=== PATIENT | female | born 1955 | race Caucasian/White ===

== ENCOUNTER → 2019-04-18 11:33 | Outpatient (CLI) | payer BC, SELFPAY ==
--- NOTE | 2019-04-18 | DI.MG.S_ITS ---
BILATERAL DIGITAL SCREENING MAMMOGRAM 3D/2D WITH CAD: 04/18/2019 CLINICAL: Routine screening. Comparison is made to exams dated: 02/20/2018 mammogram, 02/06/2017 mammogram, and 02/03/2016 mammogram - [facility]. There are scattered fibroglandular elements in both breasts. Current study was also evaluated with a Computer Aided Detection (CAD) system. There is possible architectural distortion in the right breast at 11 o'clock middle depth. No other significant masses, calcifications, or other findings are seen in either breast. IMPRESSION: INCOMPLETE: NEEDS ADDITIONAL IMAGING EVALUATION The possible architectural distortion in the right breast is indeterminate. Additional views with possible ultrasound are recommended. This exam was interpreted at Station ID: [id number]. NOTE: For mammograms, a report in lay terms will be sent to the patient. Approximately 15% of breast malignancies will not be visualized mammographically. In the management of a palpable breast mass, a negative mammogram must not discourage biopsy of a clinically suspicious lesion. Electronically Signed By: Mary bowser/jami:04/18/2019 15:14:06 letter sent: Additional Imaging Needed ACR BI-RADS Category 0: Incomplete 3340F
== END ==
PROVIDERS: PCP Internal Medicine; Visit Provider Internal Medicine
DX: Z12.31 Encounter for screening mammogram for malignant neoplasm of breast (principal)
CPT/HCPCS: 77063; 77067

== ENCOUNTER → 2019-05-05 08:57 | Outpatient (CLI) | payer BC, SELFPAY ==
--- NOTE | 2019-05-05 | DI.MG.S_ITS ---
UNILATERAL RIGHT DIGITAL DIAGNOSTIC MAMMOGRAM 3D/2D WITH ADDITIONAL VIEWS: 05/05/2019 CLINICAL: Additional evaluation requested from prior study. Comparison is made to exams dated: 04/18/2019 mammogram - [facility], 02/20/2018 mammogram, and 02/06/2017 mammogram - [facility]. There are scattered fibroglandular elements in right breast. Previously noted possible architectural distortion in the right breast at 11 o'clock middle depth on comparison screening mammogram resolves with additional views and likely represented superimposition of benign anatomic tissues. No significant masses, calcifications, or other findings are seen in the imaged areas of the right breast. IMPRESSION: INCOMPLETE: NEEDS ADDITIONAL IMAGING EVALUATION Previously noted possible architectural distortion in the right breast at 11 o'clock middle depth on comparison screening mammogram resolves with additional views and likely represented superimposition of benign anatomic tissues. A targeted ultrasound is recommended and will be performed immediately following this exam. This exam was interpreted at Station ID: [id number]. NOTE: For mammograms, a report in lay terms will be sent to the patient. Approximately 15% of breast malignancies will not be visualized mammographically. In the management of a palpable breast mass, a negative mammogram must not discourage biopsy of a clinically suspicious lesion. Electronically Signed By: Eliezer Butts M.D. ecl/:05/05/2019 10:47:13 ACR BI-RADS Category 0: Incomplete 3340F
--- NOTE | 2019-05-05 | DI.US.S_ITS ---
LIMITED ULTRASOUND OF RIGHT BREAST: 05/05/2019 CLINICAL: Patient returns today to evaluate possible architectural distortion in the right breast. Comparison is made to exams dated: 05/05/2019 mammogram, 04/18/2019 mammogram - [facility], 02/20/2018 mammogram, and 02/06/2017 mammogram - [facility]. Color flow and real-time ultrasound of the right breast 10-11 o'clock region were performed. Wing scale images of the real-time examination were reviewed. No underlying breast mass or abnormality is identified. There is no ultrasound correlate for the previously noted possible architectural distortion in the right breast at 11 o'clock middle depth seen on comparison screening mammograms, which also resolved on additional diagnostic mammogram views performed earlier today 05/05/19. IMPRESSION: NEGATIVE There is no sonographic evidence of malignancy in the imaged portions of the right breast. Return to annual screening mammography schedule is recommended. The patient is advised to monitor her breasts and to return sooner for re-evaluation should she feel anything grow or change. This exam was interpreted at Station ID: [id number]. Electronically Signed By: Eliezer Butts M.D. ecl/:05/05/2019 10:51:30 letter sent: Normal Exam Ultrasound BI-RADS: 1 Negative
== END ==
PROVIDERS: PCP Internal Medicine; Visit Provider Internal Medicine
DX: R92.8 Other abnormal and inconclusive findings on diagnostic imaging of breast (principal)
CPT/HCPCS: 76642; 77065; G0279

== ENCOUNTER → 2019-10-27 12:35 | Outpatient (CLI) | payer OTHER, SELFPAY ==
--- NOTE | 2019-10-27 | DI.RAD.S_ITS ---
PROCEDURE: XR CHEST 2V INDICATIONS: night sweats/right knee pain/right hip pain TECHNIQUE: 2 views of the chest were acquired. COMPARISON: None. FINDINGS: Surgical changes and devices: None. Lungs and pleura: Lungs are clear. No pleural effusions or pneumothorax. Mediastinum: Mediastinal contours are normal. Heart size is normal. Bones and chest wall: No suspicious bony abnormalities. Soft tissues appear unremarkable. IMPRESSION: Normal for age, source of current night sweats symptoms is not seen. Dictated by: Primitivo Toledo M.D. on 10/27/2019 at 13:33 Approved by: Primitivo Toledo M.D. on 10/27/2019 at 13:34
--- NOTE | 2019-10-27 | DI.RAD.S_ITS ---
PROCEDURE: XR KNEE RT 3V INDICATIONS: night sweats/right knee pain/right hip pain TECHNIQUE: 3 views of the knee were acquired. COMPARISON: None. FINDINGS: Bones: No fractures or dislocations. No suspicious bony lesions. There is severe lateral facet patellofemoral joint osteoarthritis with [id number] articulation. At the medial compartment of the right knee there is only a slight degree of joint space narrowing. Mild osteoarthritis is present at that site. Soft tissues: No joint effusion. No suspicious soft tissue calcifications. IMPRESSION: Asymmetric degenerative changes at the right knee, mild at the medial compartment and severe at the lateral facet of the patellofemoral joint. Dictated by: Primitivo Toledo M.D. on 10/27/2019 at 13:32 Approved by: Primitivo Toledo M.D. on 10/27/2019 at 13:33
--- NOTE | 2019-10-27 | DI.RAD.S_ITS ---
PROCEDURE: XR HIP W PEL IF DONE RT 2V INDICATIONS: night sweats/right knee pain/right hip pain TECHNIQUE: AP pelvis with lateral view(s) of the right hip. COMPARISON: None. FINDINGS: Bones: No fractures or dislocations. Pelvic ring appears intact. No suspicious bony lesions. Soft tissues: The visualized bowel gas pattern is normal. No suspicious soft tissue calcifications. IMPRESSION: There is hip joint space narrowing, mild to moderate bilaterally, with no trauma. Lower lumbosacral spine degenerative disc disease at L4-5 is moderately severe. Dictated by: Primitivo Toledo M.D. on 10/27/2019 at 13:31 Approved by: Primitivo Toledo M.D. on 10/27/2019 at 13:32
== END ==
PROVIDERS: PCP Internal Medicine; Visit Provider Internal Medicine
DX: M25.561 Pain in right knee (principal); M17.11 Unilateral primary osteoarthritis, right knee; M25.551 Pain in right hip; M51.36 Other intervertebral disc degeneration, lumbar region; R61 Generalized hyperhidrosis; G62.9 Polyneuropathy, unspecified
CPT/HCPCS: 71046; 73502; 73562

== ENCOUNTER 2019-12-17 10:15 | Outpatient (RCR) | payer OTHER, SELFPAY ==
--- NOTE | 2019-12-10 12:37 | PT.OPPOC ---
Physical, Occupational & Speech Therapy At [facility] Current Diagnoses Radiculopathy, lumbar region (12/10/19) Iliotibial band syndrome, right leg (12/10/19) Abnormal posture (12/10/19) Weakness (12/10/19) Visit Care Team Role Provider Type Dariela Peterson MD Attending Provider Non-Staff Primary Care Provider Referring Provider Specialty: Internal Medicine Address: [address] [place] [address], [id number] Email: [email or web address] Plan Of Care PT-OP-T Assessment and Plan Start: 12/09/19 10:26 Freq: Status: Active Protocol: Document 12/10/19 08:58 SAK (Rec: 12/11/19 12:06 [facility]A [id number]) Physical Therapy Assessment Rehab Potential Rehabilitation Potential Good Evaluation Complexity Number of Personal Factors/Comorbidities 1-2 Number of Body Systems Impaired 3 Clinical Presentation at Evaluation Evolving Impairments Impairments Activity Tolerance,Pain, Posture,Soft Tissue Mobility, Strength Other Concerns Barriers to Rehabilitation history of multiple musculoskeletal injuries, use of Statin medication Goals Five Impairment Lack of exercise consistency E Commerce Merchant Goal (LTG) Patient to be independent and compliant with HEP and aquatic exercise performance. LTG Duration 12 wks Four Impairment postural dysfunction and poor body mechanics Short Term Goal (STG) Patient to verbalize understanding of neutral postural alignment after instruction STG Duration 2 wks Snf Goal (LTG) Patient to demonstrate improvement in postural alignment during walking and functional daily tasks LTG Duration 12 wks Three Impairment Poor core stabilization and strength Short Term Goal (STG) Patient able to tolerate HEP for purposes of core strengthening and stabilization without an increase in pain STG Duration 6 wks E Commerce Merchant Goal (LTG) Patient to demonstrate good ability to activate TrA and multifidi for core stabilization with functional activities. Two Impairment Unable to go for walks or hikes without pain Short Term Goal (STG) Patient able to go for 20-30 min walk without an increase in pain STG Duration 6 wks Snf Goal (LTG) Patient able to go hiking with minimal to no increase in pain. LTG Duration 12 wks One Impairment Sleep interrupted by pain Snf Goal (LTG) Patient able to sleep without being limited by pain LTG Duration 12 wks Assessment Summary Assessment Patient presents to physical therapy with muscle imbalances throughout her core, pelvis, and LE's with history of multiple orthopedic injuries. Has a poor ability to activate her core stabilizing musculature. She has tightness bilaterally right greater than left LE, postural dysfunction, and is performing heavy physical activities without proper body mechanics or musculature support. Feel she would benefit from physical therapy to address these imbalances, and help her establish a consistent program of HEP and aquatic exercise for long-term fitness and pain management. Physical Therapy Plan Frequency and Duration Frequency of Treatment 2x/Week Duration of Treatment 12 wks Plan of Care Start Date 12/10/19 Plan of Care End Date 03/10/20 Therapeutic Interventions Therapeutic Interventions Aquatic Therapy,Home Exercise Program,Manual Therapy, Neuromuscular Re-education, Patient/Caregiver Education, Self-Care/Home Management,Soft Tissue Mobilization,Taping, Therapeutic Activities, Therapeutic Exercises Modalities Cold Pack/Ice Massage,Electric Stimulation,Traction- Mechanical,Ultrasound Next Visit Focus/Plan Next Note Type Treatment Note Next Visit Plan Warm-up and gait evaluation on treadmill, standing postural education at wall (postural isometrics), use of foam roll for flexibility and spinal realignment, problem-solve any difficulty with HEP, progress core stabilization ex quadriped, sidelying, supine. Trial kinesiotape for inhibition right ITband. Plan of Care Dates Plan of Care Start Date 12/10/19 Plan of Care End Date 03/10/20 Electronically Signed by: Franca Talamantes, PT 12/11/19 [id number] Please Sign and Return: I have reviewed this Plan of Care and certify that the skilled therapy services above are required to meet the patient?s needs. Physician Signature Date Printed Name and Credentials Clinical Instructor Signature Printed Name and Credentials
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
--- NOTE | 2019-12-29 08:05 | PT-OP ANOTE ---
Pt called on Sat cancelling her appt today secondary to having a cold, is aware of her next land appt 12/30.
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
== END 2020-10-01 14:15 ==
LOC: PHYS 10:15
PROVIDERS: PCP Internal Medicine; Referring Provider Internal Medicine; Visit Provider Internal Medicine
DX: M54.16 Radiculopathy, lumbar region (principal); M76.31 Iliotibial band syndrome, right leg; R53.1 Weakness; R29.3 Abnormal posture
CPT/HCPCS: 97110; 97113; 97162; 97535

== ENCOUNTER → 2020-04-21 10:23 | Outpatient (CLI) | payer OTHER, SELFPAY ==
--- NOTE | 2020-04-21 | DI.RAD.S_ITS ---
PROCEDURE: XR KNEE LT 1TO2V INDICATIONS: BILATERAL KNEE PAIN TECHNIQUE: 2 views of the knee were acquired. COMPARISON: [facility], CR, XR KNEE RT 3V, 10/27/2019, 12:45. FINDINGS: Bones: No fractures or dislocations but there is a moderate degree of lateral facet patellofemoral joint degenerative joint space narrowing, and on the lateral view there is a small suprapatellar joint effusion slightly greater than that seen at the right knee same day.. No suspicious bony lesions. Soft tissues: No joint effusion. No suspicious soft tissue calcifications. IMPRESSION: Moderate patellofemoral joint osteoarthritis at the lateral facet, small joint effusion seen on the lateral view without loose body. Dictated by: Primitivo Toledo M.D. on 04/21/2020 at 12:15 Approved by: Primitivo Toledo M.D. on 04/21/2020 at 12:16
--- NOTE | 2020-04-21 | DI.RAD.S_ITS ---
PROCEDURE: XR KNEE STANDING BI INDICATIONS: BILATERAL KNEE PAIN TECHNIQUE: Frontal view of the right knee, and frontal view of the left knee. COMPARISON: [facility], CR, XR KNEE RT 3V, 10/27/2019, 12:45. FINDINGS: Bones: No acute fractures or dislocations. Patellar alignment is normal on the sunrise view. No suspicious bony lesions. Joint spaces appear mildly reduced with weightbearing. Soft tissues: No knee joint effusions. No suspicious soft tissue calcification. IMPRESSION: Mild reduction of the medial compartment joint interspace on frontal view weight bearing imaging. Dictated by: Primitivo Toledo M.D. on 04/21/2020 at 11:59 Approved by: Primitivo Toledo M.D. on 04/21/2020 at 12:12
--- NOTE | 2020-04-21 | DI.RAD.S_ITS ---
PROCEDURE: XR KNEE RT 1TO2V INDICATIONS: BILATERAL KNEE PAIN TECHNIQUE: 2 views of the right were acquired during weight bearing, patellar sunrise view and lateral view. COMPARISON: [facility], , XR KNEE RT 3V, 10/27/2019, 12:45. FINDINGS: Bones: No fractures or dislocations but there is severe degenerative osteoarthritis at the lateral facet of the patellofemoral joint on the patellar imaging, and on the lateral view there appears to be a small joint effusion in the suprapatellar bursal space. No suspicious bony lesions. Soft tissues: No joint effusion. No suspicious soft tissue calcifications. IMPRESSION: Near severe degenerative osteoarthritis at the lateral facet of the patellofemoral joint. Small joint effusion incidentally noted in the suprapatellar bursal space but no intra-articular loose body is found. Dictated by: Primitivo Toledo M.D. on 04/21/2020 at 12:13 Approved by: Primitivo Toledo M.D. on 04/21/2020 at 12:15
== END ==
PROVIDERS: PCP Internal Medicine; Referring Provider Internal Medicine; Visit Provider Internal Medicine
DX: M25.561 Pain in right knee (principal); M25.562 Pain in left knee; M17.0 Bilateral primary osteoarthritis of knee; M25.462 Effusion, left knee; M25.461 Effusion, right knee
CPT/HCPCS: 73560; 73565

== ENCOUNTER → 2020-07-17 09:02 | Outpatient (CLI) | payer OTHER, SELFPAY ==
--- NOTE | 2020-07-17 | DI.MG.S_ITS ---
BILATERAL DIGITAL SCREENING MAMMOGRAM 3D/2D WITH CAD: 07/17/2020 CLINICAL: Routine screening. Comparison is made to exams dated: 04/18/2019 mammogram - , 02/20/2018 mammogram, and 02/06/2017 mammogram - [facility]. There are scattered fibroglandular elements in both breasts. Current study was also evaluated with a Computer Aided Detection (CAD) system. No significant masses, calcifications, or other findings are seen in either breast. There has been no significant interval change. IMPRESSION: NEGATIVE There is no mammographic evidence of malignancy. A 1 year screening mammogram is recommended. This exam was interpreted at Station ID: [id number]. NOTE: For mammograms, a report in lay terms will be sent to the patient. Approximately 15% of breast malignancies will not be visualized mammographically. In the management of a palpable breast mass, a negative mammogram must not discourage biopsy of a clinically suspicious lesion. Electronically Signed By: Kali narayan/jami:07/19/2020 08:03:19 letter sent: Normal Exam ACR BI-RADS Category 1: Negative [id number]
== END ==
PROVIDERS: PCP Internal Medicine; Referring Provider Internal Medicine; Visit Provider Internal Medicine
DX: Z12.31 Encounter for screening mammogram for malignant neoplasm of breast (principal)
CPT/HCPCS: 77063; 77067

== ENCOUNTER → 2020-09-30 14:56 | Outpatient (CLI) | payer MEDICARE, OTHER, SELFPAY ==
[2020-09-30 15:49] LABS: Add Manual Diff / Slide Review NO; Basophils Absolute Auto 100 /uL (0-100); Basophils Percent Auto 0.8 % (0-2); Eosinophils Absolute Auto 200 /uL (0-450); Eosinophils Percent Auto 2.7 % (2-4); Hematocrit 40.4 % (36-46); Hemoglobin 13.5 g/dL (12.0-16.0); Lymphocytes Absolute Auto 1800 /uL (1100-4500); Lymphocytes Percent Auto 25.9 % (25-40); Mean Corpuscular HGB Conc 33.4 % (30-36); Mean Corpuscular Hemoglobin 31.2 PG (26-34); Mean Corpuscular Volume 93.5 fL (80-100); Monocytes Absolute Auto 600 /uL (0-900); Monocytes Percent Auto 8.6 % (3-14); Neutrophils Absolute Auto 4200 /uL (1500-7000); Platelet Count 222 X10^3/uL (150-400); Red Blood Cell Count 4.32 X10^6/uL (4.0-5.2); Red Cell Distribution Width 12.6 % (11.6-14.8); White Blood Cell Count 6.8 X10^3/uL (4.5-11.0)
[2020-09-30 16:18] LABS: Carbon Dioxide 28 mmol/L (22-32); Chloride 102 mmol/L (98-107); HEMOLYSIS < 15 (0-50); Sodium 136 mmol/L (137-145)
== END ==
PROVIDERS: PCP Internal Medicine; Referring Provider Orthopaedic Surgery; Visit Provider Orthopaedic Surgery
DX: Z01.818 Encounter for other preprocedural examination (principal); Z01.812 Encounter for preprocedural laboratory examination
CPT/HCPCS: 36415; 80051; 85025; 93005; 93010

== ENCOUNTER → 2020-10-04 09:15 | Outpatient (CLI) | payer MEDICARE, OTHER, SELFPAY ==
[2020-10-04 10:52] LABS: COVID19 -Nasal RAPID Negative (Negative)
== END ==
PROVIDERS: PCP Internal Medicine; Visit Provider Nurse Practitioner
DX: Z20.828 Contact with and (suspected) exposure to other viral communicable diseases (principal)
CPT/HCPCS: 87635; C9803

== ENCOUNTER 2020-10-06 08:27 | Day surgery (SDC) | payer MEDICARE, OTHER, SELFPAY ==
[2020-10-04 09:35] VITALS: BMI 26.6
[2020-10-06] VITALS (17 sets, daily range): BP systolic 106–152; BP diastolic 59–86; PULSE 73–91; RESP 10–22; TEMP 36.2–36.9; O2SAT 93–100; BMI 27.0
--- NOTE | 2020-10-06 08:12 | DI.RAD.S_ITS ---
PROCEDURE: XR KNEE RT 1TO2V INDICATIONS: post operative right knee TECHNIQUE: 2 view(s) of the knee acquired. COMPARISON: [facility], CR, XR KNEE LT 1TO2V, 04/21/2020, 10:20. FINDINGS: Bones: Patient is status post knee joint arthroplasty. Hardware components are in expected positions. Visualized bony structures are intact. Soft tissues: Overlying postoperative changes are noted. IMPRESSION: Expected postoperative appearance Dictated by: Jose Whittington M.D. on 10/06/2020 at 13:19 Approved by: Jose Whittington M.D. on 10/06/2020 at 13:21
[2020-10-06] MEDS: LACTATED RINGERS 1,000 ML 42 ML IV ×2 (09:17→11:52)
[2020-10-06] MEDS: PREGABALIN 75 MG CAPSULE PO (09:20)
[2020-10-06] MEDS: CELECOXIB 200 MG CAPSULE PO (09:20)
--- NOTE | 2020-10-06 09:48 | P.OP_ITS ---
Operative Date/Time/Diagnoses Date of procedure: 10/06/20 Time of procedure: 12:09 Pre-op diagnosis: Right knee osteoarthritis Post-op diagnosis: same Procedure & Clinicians Procedure: Right total knee arthroplasty Same procedure as scheduled: Yes Indications: The patient presents today for total knee arthroplasty after failure of conservative treatment. The nature of the procedure including the risks and benefits, alternatives, postoperative course and expected outcome were discussed and all questions answered. Consent was obtained. Operative site confirmed and marked. Surgeon: Aftab Reed Privacy Officer: Luke Harrison Anesthesia Type: General, Spinal and Local Operative Notes Closure Type: primary Specimen(s): none sent Prosthetic devices, grafts, tissues, transplants, or devices: [facility] BCS: 6 femoral component, 4 tibial component, 10 mm BCS polyethylene tray and 32 x 7.5 mm round patella Applied: implant(s) Estimated Blood Loss (mL): 10 Blood products transfused: none Tourniquet time (min): 54 Procedure in detail: The patient was taken to the operative suite and placed under anesthesia. The patient was given prophylactic antibiotics prior to surgery. The patient was also given tranexamic acid, 1 g, just prior to surgery for postoperative hemostasis. The lateral knee was prepped and the joint injected with 20 mL of 1% Lidocaine with epinephrine. The knee was then prepped and draped in usual sterile fashion. The leg was exsanguinated with an Esmarch dressing and the tourniquet raised to 250 torr. A 15 cm anterior incision was made. Next a medial trivector arthrotomy was made. The extensor mechanism was marked to ensure accurate repair. Initial exposing dissection was carried out medially and laterally. The knee was then flexed and the intramedullary femoral guide faina placed. The distal femoral cut was made in 6? of valgus at the +1 position. The femoral size was measured and the appropriate cutting block was then placed and the anterior, posterior and chamfer cuts made. The intramedullary tibial alignment faina was then placed. The guide was set to remove approximately 10 mm from the less affected lateral side. The proximal tibial cut was then made with an oscillating saw. All meniscus and bony debris was then removed. Posterior femoral osteophytes removed with a curved osteotome. Flexion extension gaps were checked. No spec ific balancing was required other than routine exposure and removal of osteophytes. The soft tissues were then injected with a combination of 20 mL of half percent Marcaine with epinephrine and 20 mL of Exparel. The trial components were then placed. The knee was then extended and the patellar thickness was measured and a cut made removing approximately 7-8 mm of bone. The patella was then sized and drilled. Some excess lateral bone was excised and the patellofemoral ligament released. The knee went into full extension and flexion beyond 130?. There was excellent medial-lateral balance throughout motion. Patellar tracking was excellent. The trial components were removed and the knee was cleansed with Pulsavac irrigation and dried. The final components were cemented with high viscosity vacuum mixed bone cement with antibiotics. The joint was filled with a dilute Betadine solution. The knee was held in extension and the patellar clamped until the cement was adequately cured. The knee was then irrigated. The extensor mechanism was closed with 5 interrupted #1 Vicryl sutures and a running Quill suture at approximately 90 degrees of flexion. The joint was then injected with a combination of 1 g of tranexamic acid and 20 mL of quarter percent Marcaine with epinephrine. The subcutaneous tissue was closed with 2 0 Vicryl. The skin was closed with absorbable subcuticular sutures and surgical adhesive. An Aquacel dressing and José Miguel wrap were then applied. The patient tolerated the procedure well and was returned to recovery room in good condition. Complications: none Post-operative Condition: stable Disposition: PACU Plan for aftercare: [facility] Protocol.
--- NOTE | 2020-10-06 09:48 | PM.PREOP ---
Pre-operative Note COVID-19 COVID-19 status: Negative Result date/Date tested (Pos, Neg/Pending): 10/04/20 Interval Note History & Physical reviewed/Exam performed by Physician: Yes Changes to H&P: No
[2020-10-06] MEDS: ACETAMINOPHEN 325 MG TABLET 975 MG PO (10:08)
[2020-10-06] MEDS: CLINDAMYCIN 900 MG/50 ML PIGGYBACK 50 MG IV ×2 (10:42→19:17)
[2020-10-06] MEDS: TRANEXAMIC ACID 1,000 MG VIAL 1000 MG IV (10:49)
--- NOTE | 2020-10-06 11:06 | SUR.OPER ---
Supine on padded OR bed. Pillow under head, arms secured on padded armboards <90 degree abduction. Safety belt across torso. Non-operative leg secured with tape over blanket over lower leg. Operative leg secured in DeMayo/Otf positioner. Foam padded brace at thigh of operative leg.
[2020-10-06] MEDS: BUPIVACAINE 0.25% W/ EPI (PF) 20 ML, TRANEXAMIC ACID 1,000 MG, SODIUM CHLORIDE 0.9% 10 ML INJ (11:11)
[2020-10-06] MEDS: LIDOCAINE 1% W/EPI 20 ML INJ (11:12)
[2020-10-06] MEDS: BUPIVACAINE 0.25% W/ EPI (PF) 40 ML, BUPIVACAINE LIPOSOME 266 MG, SODIUM CHLORIDE 0.9% ... INJ (11:12)
[2020-10-06] MEDS: OXYCODONE IR 5 MG TABLET PO (12:53)
--- NOTE | 2020-10-06 14:22 | PC.NURSE ---
Assess- Patient is A&Ox3 and denies pain. Her r.knee has an aquacel with bib wrap intact, she has feeling to lower thigh, and feels some pressure upon her feet when feeling for pulses, which are wnl. She was medicated with oxycodone before she came up to the floor and denies discomfort. Tolerating ice water and denies nausea at this time. Resting in bed with IVF infusing at 100cc/hr.
[2020-10-06] MEDS: IBUPROFEN 400 MG TABLET PO ×3 (14:49→20:41)
[2020-10-06] MEDS: LACTATED RINGERS 1,000 ML 100 ML IV (14:50)
[2020-10-06] MEDS: ACETAMINOPHEN 325 MG TABLET 650 MG PO ×2 (15:28→20:39)
--- NOTE | 2020-10-06 16:17 | PT.IIE ---
Current Diagnoses Unilateral primary osteoarthritis, right knee (10/06/20) Other bursitis of knee, right knee (10/06/20) Surgery Performed Operation Date: 10/06/20 10:15 Actual Procedures p Total Knee Arthroplasty(Right) - Aftab Reed MD Surgical History (Last Updated 10/04/20 @ 10:19 by Megan Gutierrez, RN) History of esophagogastroduodenoscopy (EGD) History of hysterectomy Hx of knee surgery (~1984) Hx of LASIK Hx of varicose vein stripping Medical History (Last Updated 10/04/20 @ 10:19 by Megan Gutierrez, RN) Cholelithiasis Diverticulosis Fatty liver GERD (gastroesophageal reflux disease) HLD (hyperlipidemia) Hypothyroid Numbness Pre-diabetes PVCs (premature ventricular contractions) Sinus bradycardia Statin-induced myositis Physical Therapy Inpatient Evaluation/Re-Eval M1 PT/OT-IP Prior Functional Status Start: 10/06/20 15:01 Freq: NEEDED Status: Active Protocol: Document 10/06/20 15:59 (Rec: 10/06/20 16:17 [id number]) Medical Review Prior Functional Status Medical History Reviewed Yes Diet/Fluid Consistency Regular Communication no deficits noted. Mobility and Gait pt was able to walk 2 miles with hiking sticks per day but only on flat surface. Pain increase with mobility, especially going downhill. Activities of Daily Living and IADL's IND for all ADLs and IADLs. Social History Household Members spouse Living Arrangements House Number of Floors (Floors) Two Floors Number of Stairs To Enter/Railing? 1 CIERA (4) without railing ramp entrance from garage Home Environment High Toilet,Tub/Shower Home Equipment Front Wheel Walker,Straight Cane,Shower Seat without Backrest,Hand Held Shower,Grab Bars In Shower Employment Status Retired Additional Social History Comment Pt lives with his in [place] who will be able to assist as needed. Their son is staying over until oct as well. Pt will participate outpatient PT in and [place] M2 PT-IP Current Condition Start: 10/06/20 15:01 Freq: NEEDED Status: Active Protocol: Document 10/06/20 15:59 (Rec: 10/06/20 16:17 [id number]) Physical Therapy Current Condition Current Condition Evaluation Date 10/06/20 Treatment Diagnosis R TKA, difficulty in walking Onset Date 10/06/20 Weight Bearing Status Weight Bearing Status Weight Bear as Tolerated M3 PT-IP Subjective Start: 10/06/20 15:01 Freq: NEEDED Status: Active Protocol: Document 10/06/20 15:59 (Rec: 10/06/20 16:17 [id number]) Subjective Physical Therapy Visit Type Type Initial Evaluation Visit Start Time 15:28 Visit Stop Time 15:58 Total Visit Minutes 30 Notes attended session Number of PERL SOFTWARE ENGINEER Visits 0 Physical Therapy Visit Comments Patient Comments I think i can walk a little bit Patient Goals To return home with Therapy Pain Assessment Pain When Pain Assessed During Mobility Pain Present Pain Present Pain Reported Location Right knee Intensity 3 Scale Used Numeric (0 - 10) Description Aching,With Movement Pain Management Techniques Apply Cold,Timing of Activity with Medications M4 PT-IP Mobility and Gait Start: 10/06/20 15:01 Freq: NEEDED Status: Active Protocol: Document 10/06/20 15:59 (Rec: 10/06/20 16:17 [id number]) PT-Bed Mobility Assessment Supine to Sit Supine to Sit Standby Assistance Scooting Scooting to Edge of Bed Standby Assistance PT-Transfer Assessment Sit to and From Stand Sit to and from Stand Contact Guard Assistance,1 Person Assistance,Use of Upper Extremities Equipment Transfer Assistive Device Gait Belt,Front Wheeled Walker Orthotic/Prosthetic Devices or Brace: No Transfers Transfer Destination Bed,Chair Transfer Technique Stand Step Pivot Transfer Ability Level of Assist Contact Guard Assistance,1 Person Assistance,Use of Upper Extremities Comments Mobility Comments Pt was in bed upon PT arrival. at bedside. She is Ax O x 4 but stated she was somewhat drowsy. pain at 3/10 with pedal pulse, slight weakness at RLE. BP in supine = 139/84. Pt completed supine to sit with SBA, followed by sit to stand with CGA by pushing off from bed. Pt practiced lateral weight shift in standing with FWW. She then progressed to walking from L side EOB to Chair on R side. She presented a step to gait pattern with slight IR RLE. She overall was stable but slow. Did not report of increase pain and she transferred to chair with CGA. She does c/o slight lightheadiness but BP at 118/ 75. She rested in chair comfortably and call light placed within reach. Reviewed ROM ex with her. Gait Assessment Gait Gait Assistance Required: Contact Guard Assist Distance (Feet) 10 Able to Maintain Weight Bearing Status Yes During Gait Assistive Devices Assistive Device Gait Belt,Front Wheeled Walker Orthotic/Prosthetic Devices or Brace: No Gait Deviations General Gait Pattern Antalgic,Decreased Stride Length,Decreased Feet Clearance,Step-to Gait Factors Limiting Gait Function Factors Limiting Gait Function Decreased Activity Tolerance, Decreased Strength,Limited Range of Motion,Pain,Poor Balance,Poor Safety Awareness Comments Gait Comments see mobility comments. Stair Climbing Assessment Comments Stair Climbing Comments did not assess PT-Balance Assessment Sitting Balance and Reactions Static Sitting Balance Ability Normal Dynamic Sitting Balance Ability Normal Standing Balance and Reactions Static Standing Balance Ability Good Dynamic Standing Balance Ability Good Device Used FWW M5 PT-IP Objective Assessments Start: 10/06/20 15:01 Freq: NEEDED Status: Active Protocol: Document 10/06/20 15:59 (Rec: 10/06/20 16:17 [id number]) Orientation Orientation/Cognition Level of Alertness Alert Orientation Name,Age,Birthday,Month,Date, Year,Day of Week,Place, Situation Language Function Ability No Deficits Noted Safety Awareness Understands Safety Issues Memory Description No Deficits Noted Gross Range of Motion Upper Extremity ROM Assessment Within Functional Limits Lower Extremity ROM Assessment Right Impaired Impairments knee AROM ~5-110. Strength Upper Extremity Strength Assessment Within Functional Limits Lower Extremity Strength Assessment Right Impaired Comments Strength Comments did not assess strength on RLE Coordination Assessment Gross Coordination Gross Coordination WNL Sensation Assessment Sensation Gross Sensation Right LE Impaired Muscle Tone Muscle Tone WNL Yes M6 PT-IP Treatment Start: 10/06/20 15:01 Freq: NEEDED Status: Active Protocol: Document 10/06/20 15:59 (Rec: 10/06/20 16:17 [id number]) Physical Therapy Treatment Exercises Exercises Ankle Pumps,Gluteal Sets,Quad Sets,Heel Slides Education Education Provided Precautions,Weight Bearing Status,Post-Op Packet,Safety M7 PT-IP Assessment and Plan Start: 10/06/20 15:01 Freq: NEEDED Status: Active Protocol: Document 10/06/20 15:59 (Rec: 10/06/20 16:17 [id number]) PT Summary Assessment and Plan Potential Rehabilitation Potential Excellent Status of Condition at Evaluation Stable Summary Impairments Pain,ROM,Strength,Balance,Bed Mobility,Transfers,Gait, Activity Tolerance Assessment Summary Pt is a 65 yo female s/p POD0 RTKA. PLOF= IND for all mobility without AD. Able to walk 2miles /day with hiking sticks but difficulty for downhill walk/ uneven surface. CLOF= pt has minimal pain and able to complete bed mobility SBA, and walked around the room with CGA step to pattern and FWW. Expect pt to be d/c home tomorrow with and son assistance, along with outpt PT Goals Bed Mobility Goal Independent Transfer Goal Independent,Standby Assistance ,Front Wheeled Walker Gait Goal Independent,Standby Assistance ,Front Wheel Walker Gait Distance 200 Other Goals 1 CIERA with FWW Days to Meet Goals 3 Frequency of Treatment Frequency Of Treatment Twice a Day Treatment Plan Physical Therapy Treatment Plan Bed Mobility Training,Transfer Training,Gait Training, Therapeutic Exercise,Balance Retraining,Post Op Education, Discharge Planning,Hot or Cold Pack Other Recommendations and Next Treatment mobility as won Focus 1STE with FWW Recommendations To Nursing Amount of Assist Needed 1 Person Assist Discharge Recommendations PT Discharge Recommendations Home with Assistance, Outpatient PT Transportation Needs at Discharge Private Vehicle
[2020-10-06] MEDS: ASPIRIN EC 81 MG TABLET PO (20:40)
[2020-10-06] MEDS: ROSUVASTATIN 10 MG TABLET 40 MG PO (20:41)
[2020-10-06] MEDS: FAMOTIDINE 20 MG TABLET PO (20:41)
[2020-10-06] MEDS: DOCUSATE 100 MG CAPSULE PO (20:41)
[2020-10-06] MEDS: hydrOXYzine pamoate 25 MG CAPSULE PO (20:41)
[2020-10-06] MEDS: estradioL 1 MG TABLET PO (21:10)
[2020-10-06] MEDS: AMITRIPTYLINE 10 MG TABLET 30 MG PO (21:10)
--- NOTE | 2020-10-06 22:00 | PC.NURSE ---
Pt is post-op R TKA. Pt reports pain at 2/10. Circulation and Movement intact, mild weakness in RLE. Pt reports slight numbness in RLE. José Miguel wrap in place in RLE. No drainage noted. RA, lungs CTA. SpO2 96%. Denies SOB. Pt with VSS. HRR. Denies CP or pressure. Pt reports mild nausea sometimes associated with standing, sometimes associated with medication administration. Pt thinks it might be ibuprofen causing nausea. Given crackers for nausea. Instructed to call if nausea continues. Pt voiding adequate volume of dark yellow urine in toilet. Pt is drinking water and continues on IVF. Pt is stand-by assist with FWW. Pt is doing well following TKA precautions for mobility. Will continue to monitor, notify MD with changes.
[2020-10-07] MEDS: IBUPROFEN 400 MG TABLET PO ×2 (00:56→06:50)
[2020-10-07] MEDS: LACTATED RINGERS 1,000 ML 100 ML IV (00:57)
[2020-10-07] MEDS: hydrOXYzine pamoate 25 MG CAPSULE PO ×2 (03:09→08:47)
[2020-10-07] MEDS: CLINDAMYCIN 900 MG/50 ML PIGGYBACK 50 MG IV (03:10)
[2020-10-07 05:00] VITALS: BP 118/67; PULSE 72; RESP 18; TEMP 36.1; O2SAT 95
[2020-10-07 05:02] LABS: Hematocrit 29.5 % (36-46); Hemoglobin 10.1 g/dL (12.0-16.0)
[2020-10-07] MEDS: ACETAMINOPHEN 325 MG TABLET 650 MG PO (06:49)
[2020-10-07] MEDS: LEVOTHYROXINE 88 MCG TABLET PO (06:50)
[2020-10-07 08:33] VITALS: BP 109/62; PULSE 72; RESP 16; TEMP 36.7; O2SAT 95
[2020-10-07] MEDS: ASPIRIN EC 81 MG TABLET PO (08:47)
[2020-10-07] MEDS: DULOXETINE 20 MG CAPSULE PO (08:47)
[2020-10-07] MEDS: DOCUSATE 100 MG CAPSULE PO (08:47)
[2020-10-07] MEDS: FAMOTIDINE 20 MG TABLET PO (08:47)
--- NOTE | 2020-10-07 09:08 | PM.PNPO.1 ---
Subjective Subjective Date Patient Seen: 10/07/20 Time Patient Seen: 09:08 Interval history: POD #1 s/p right TKA with Dr. Reed. Patient mobilized with physical therapy yesterday. She has no complaints of pain today. She is doing very well. Exam Vital Signs (past 8 hours): - 10/07/20 05:00 10/07/20 08:33 Temperature 96.9 F L 98.0 F Pulse Rate 72 72 Respiratory Rate 18 16 Blood Pressure 118/67 109/62 Pulse Oximetry 95 95 Oxygen Delivery Method Room Air Oxygen Flow Rate 0 Narrative Exam Narrative: Patient lying in bed in no acute distress. She is alert orient x3. Calves are soft, compressible, nontender bilaterally. She is able to actively dorsiflex and plantar flex. Dorsalis pedis pulses 2+. Dressing on the right knee is CDI. Objective Labs Result Diagrams: 10/07/20 04:35 Labs: Laboratory Results - last 24 hr 10/07/20 04:35 Hgb 10.1 L Hct 29.5 L PFSH Medical History Cholelithiasis Diverticulosis Fatty liver GERD (gastroesophageal reflux disease) HLD (hyperlipidemia) Hypothyroid Numbness Pre-diabetes PVCs (premature ventricular contractions) Sinus bradycardia Statin-induced myositis Surgical History History of esophagogastroduodenoscopy (EGD) History of hysterectomy Hx of knee surgery (~1984) Hx of LASIK Hx of varicose vein stripping Social History household members: spouse Smoking Status: Never smoker alcohol intake: current Assessment & Plan Post-op Postoperative Procedures: Procedures Operation Date: 10/06/20 10:15 Actual Procedures Side Surgeon p Total Knee Arthroplasty Right Aftab Reed MD Patient will mobilize with physical therapy today. Continue ASA b.i.d. for VTE prophylaxis. Anticipate discharge home today. Quality VTE Deep Vein Thrombosis/Pulmonary Embolism Present on Admission: No
--- NOTE | 2020-10-07 09:57 | CM.DANOTE ---
DCP: Case received, EMR reviewed and met with patient. Introduced self and role. Was able to obtain information from patient regarding her baseline activity level prior to her having surgery. DCP assessment completed with information currently available. Patient is a 65 year old female who admitted yesterday morning to the care of the orthopedic team. PCP: Dariela JENSEN at [facility]. Payer: confirmed: Medicare/[employer] [place] [employer]. Patient came to the hospital via private vehicle for a surgical procedure. She had right total knee arthroplasty. Patient has had history of right knee arthritis, as well as pain walking down hills. Met with patient in her room. She is alert and oriented, pleasant. She was sitting up in her bed. Confirmed with her that she is independent at her baseline, and resides here in [place] with her spouse, Timoteo. She uses a hiking stick for when she goes out and walks her dog. She also indicated that she has outpatient P.T. set up. Confirmed that she resides here in [place], and her spouse, Timoteo, will be assisting her at home, as well as her son. P: Patient is to be discharging home today after she works with P.T. Lucia Ta RN/Pattern Perforating Machine Operator
--- NOTE | 2020-10-07 10:27 | PT.IPTN ---
Current Diagnoses Unilateral primary osteoarthritis, right knee (10/06/20) Other bursitis of knee, right knee (10/06/20) Surgery Performed Operation Date: 10/06/20 10:15 Actual Procedures p Total Knee Arthroplasty(Right) - Aftab Reed MD Physical Therapy Treatment Note M2 PT-IP Current Condition Start: 10/06/20 15:01 Freq: NEEDED Status: Discharge Protocol: Document 10/06/20 15:59 HH (Rec: 10/06/20 16:17 [id number]) Physical Therapy Current Condition Current Condition Evaluation Date 10/06/20 Treatment Diagnosis R TKA, difficulty in walking Onset Date 10/06/20 Weight Bearing Status Weight Bearing Status Weight Bear as Tolerated M3 PT-IP Subjective Start: 10/06/20 15:01 Freq: NEEDED Status: Discharge Protocol: Document 10/07/20 10:21 HH (Rec: 10/07/20 10:27 [id number]) Subjective Physical Therapy Visit Type Type Treatment Note Visit Start Time 09:03 Visit Stop Time 09:25 Total Visit Minutes 17 Number of CMM PROGRAMMER Visits 0 Physical Therapy Visit Comments Patient Comments Im ready to go home Therapy Pain Assessment Pain When Pain Assessed During Mobility Pain Present Pain Present Pain Reported Location Right knee Intensity 4 Scale Used Numeric (0 - 10) Description Aching,With Movement Pain Management Techniques Apply Cold,Timing of Activity with Medications M4 PT-IP Mobility and Gait Start: 10/06/20 15:01 Freq: NEEDED Status: Discharge Protocol: Document 10/07/20 10:21 HH (Rec: 10/07/20 10:27 [id number]) PT-Bed Mobility Assessment Supine to Sit Supine to Sit Independent Scooting Scooting to Edge of Bed Independent PT-Transfer Assessment Sit to and From Stand Sit to and from Stand Standby Assistance,1 Person Assistance,Use of Upper Extremities Equipment Transfer Assistive Device Gait Belt,Front Wheeled Walker Orthotic/Prosthetic Devices or Brace: No Transfers Transfer Destination Bed,Chair Transfer Technique Stand Step Pivot Transfer Ability Level of Assist Standby Assistance,1 Person Assistance,Use of Upper Extremities Comments Mobility Comments Pt was in bed upon PT arrival. c/o stiffness at R knee. Pt practiced ROM ex for warm up and completed supine to sit at LEOB SBA. She then stood up from bed with staggered stance with FWW SBA. She then amb from room to hallway for 80 ft at first SBA with step over pattern. She then completed 1 PF step with FWW with SBA and good techqniue. pt then returned to room chair with safe stand step pivot transfer . She overall did very well and no increased disocmfort noted. Call light placed within reach. Gait Assessment Gait Gait Assistance Required: Standby Assistance,1 Person Assist Distance (Feet) 150 Able to Maintain Weight Bearing Status Yes During Gait Assistive Devices Assistive Device Gait Belt,Front Wheeled Walker Orthotic/Prosthetic Devices or Brace: No Gait Deviations General Gait Pattern Antalgic,Decreased Stride Length,Decreased Feet Clearance,Step-to Gait Factors Limiting Gait Function Factors Limiting Gait Function Decreased Activity Tolerance, Decreased Strength,Limited Range of Motion,Pain,Poor Balance,Poor Safety Awareness Comments Gait Comments see mobility comments. Stair Climbing Assessment Comments Stair Climbing Comments did not assess PT-Balance Assessment Sitting Balance and Reactions Static Sitting Balance Ability Normal Dynamic Sitting Balance Ability Normal Standing Balance and Reactions Static Standing Balance Ability Good Dynamic Standing Balance Ability Good Device Used FWW M5 PT-IP Objective Assessments Start: 10/06/20 15:01 Freq: NEEDED Status: Discharge Protocol: Document 10/06/20 15:59 (Rec: 10/06/20 16:17 [id number]) Orientation Orientation/Cognition Level of Alertness Alert Orientation Name,Age,Birthday,Month,Date, Year,Day of Week,Place, Situation Language Function Ability No Deficits Noted Safety Awareness Understands Safety Issues Memory Description No Deficits Noted Gross Range of Motion Upper Extremity ROM Assessment Within Functional Limits Lower Extremity ROM Assessment Right Impaired Impairments knee AROM ~5-110. Strength Upper Extremity Strength Assessment Within Functional Limits Lower Extremity Strength Assessment Right Impaired Comments Strength Comments did not assess strength on RLE Coordination Assessment Gross Coordination Gross Coordination WNL Sensation Assessment Sensation Gross Sensation Right LE Impaired Muscle Tone Muscle Tone WNL Yes M6 PT-IP Treatment Start: 10/06/20 15:01 Freq: NEEDED Status: Discharge Protocol: Document 10/06/20 15:59 (Rec: 10/06/20 16:17 [id number]) Physical Therapy Treatment Exercises Exercises Ankle Pumps,Gluteal Sets,Quad Sets,Heel Slides Education Education Provided Precautions,Weight Bearing Status,Post-Op Packet,Safety M7 PT-IP Assessment and Plan Start: 10/06/20 15:01 Freq: NEEDED Status: Discharge Protocol: Document 10/07/20 10:21 (Rec: 10/07/20 10:27 [email or web address]) PT Summary Assessment and Plan Potential Rehabilitation Potential Excellent Status of Condition at Evaluation Stable Summary Impairments Pain,ROM,Strength,Balance,Bed Mobility,Transfers,Gait, Activity Tolerance Progress Towards Goals Safe For Discharge,Goals Met Assessment Summary Pt overall completed bed mobility IND and amb with FWW SBA. She also completed 1 PF step climbing safely. She is safe to DC with assistance and outpatient PT Frequency of Treatment Frequency Of Treatment Discharge Recommendations To Nursing Amount of Assist Needed Standby Assistance Discharge Recommendations PT Discharge Recommendations Home with Assistance, Outpatient PT Transportation Needs at Discharge Private Vehicle
== END 2020-10-07 10:26 | disposition home or self-care (01) ==
LOC: OR 08:33 → AC 08:35
PROVIDERS: PCP Internal Medicine; Referring Provider Orthopaedic Surgery; Visit Provider Orthopaedic Surgery
PROC: 0SRC0JZ Replacement of Right Knee Joint with Synthetic Substitute, Open Approach (ICD-10-PCS; CPT 27447; principal; 2020-10-06 10:15)
DX: M17.11 Unilateral primary osteoarthritis, right knee (principal); M70.51 Other bursitis of knee, right knee; K21.9 Gastro-esophageal reflux disease without esophagitis; E03.9 Hypothyroidism, unspecified; E78.00 Pure hypercholesterolemia, unspecified; R73.03 Prediabetes; F32.9 Major depressive disorder, single episode, unspecified
CPT/HCPCS: 27447; 36415; 73560; 82962; 85014; 85018; 97116; 97161; C1776; A9270; C9290; J2250; J2274; J2704

== ENCOUNTER → 2020-11-08 10:43 | Outpatient (CLI) | payer MEDICARE, OTHER, SELFPAY ==
[2020-10-06 14:50] VITALS: BMI 27.0
[2020-11-08 11:32] LABS: Add Manual Diff / Slide Review NO; Basophils Absolute Auto 0 /uL (0-100); Basophils Percent Auto 0.7 % (0-2); Eosinophils Absolute Auto 200 /uL (0-450); Eosinophils Percent Auto 2.9 % (2-4); Hematocrit 34.2 % (36-46); Lymphocytes Absolute Auto 1500 /uL (1100-4500); Lymphocytes Percent Auto 22.2 % (25-40); Mean Corpuscular HGB Conc 32.1 % (30-36); Mean Corpuscular Hemoglobin 28.4 PG (26-34); Mean Corpuscular Volume 88.6 fL (80-100); Monocytes Absolute Auto 600 /uL (0-900); Monocytes Percent Auto 9.2 % (3-14); Neutrophils Absolute Auto 4300 /uL (1500-7000); Platelet Count 251 X10^3/uL (150-400); Red Blood Cell Count 3.86 X10^6/uL (4.0-5.2); Red Cell Distribution Width 14.2 % (11.6-14.8); White Blood Cell Count 6.6 X10^3/uL (4.5-11.0)
[2020-11-08 11:40] LABS: Hemoglobin A1C% w Est Avg Glu 5.3 % (4.0-6.0)
[2020-11-08 11:43] LABS: Alanine Aminotransferase 19 IU/L (<35); Albumin 4.1 g/dL (3.5-5.0); Albumin Globulin Ratio 1.4 (1.0-2.8); Alkaline Phosphatase 88 U/L (38-126); Aspartate Aminotransferase 26 IU/L (14-36); BUN Creatinine Ratio 18.3 (6-22); Bilirubin Total 0.5 mg/dL (0.2-1.3); Blood Urea Nitrogen 11 mg/dL (7-17); C-Reactive Protein Quant 2.9 mg/dL (<1.0); Calcium 9.1 mg/dL (8.4-10.2); Carbon Dioxide 26 mmol/L (22-32); Chloride 105 mmol/L (98-107); Cholesterol 221 mg/dL (140-199); Estimated Glomerular Filt Rate > 60.0 mL/min (>60); Glucose 113 mg/dL (80-110); HDL Cholesterol 42 mg/dL (40-60); HEMOLYSIS < 15 (0-50); LDL Cholesterol Calculated 142 mg/dL (<100); Potassium 4.5 mmol/L (3.4-5.1); Sodium 137 mmol/L (137-145); Total Protein 7.1 g/dL (6.3-8.2); Triglycerides 183 mg/dL (35-150)
[2020-11-08 11:57] LABS: Erythrocyte Sedimentation Rate 49 MM/HR (0-20)
[2020-11-08 11:59] LABS: HEMOLYSIS < 15 (0-50); Iron 44 ug/dL (37-170)
[2020-11-08 12:10] LABS: Percent Iron Saturation 15 % (15-50); Total Iron Binding Capacity 291 ug/dL (265-497)
[2020-11-08 12:17] LABS: Ferritin 108 ng/mL (11-264)
[2020-11-08 12:19] LABS: Free T3, Triiodothyronine Free 4.11 pg/mL (2.77-5.27); Transferrin 236 mg/dL (206-381)
[2020-11-08 12:32] LABS: TSH w/ Reflex to FT4 0.23 uIU/mL (0.47-4.68)
== END ==
PROVIDERS: PCP Physician Assistant; Referring Provider Physician Assistant; Visit Provider Physician Assistant
DX: R79.82 Elevated C-reactive protein (CRP) (principal); G62.9 Polyneuropathy, unspecified; R61 Generalized hyperhidrosis; M79.10 Myalgia, unspecified site
CPT/HCPCS: 36415; 80053; 80061; 82728; 83036; 83540; 83550; 84439; 84443; 84481; 85025; 85651; 86140

== ENCOUNTER → 2020-11-09 16:18 | Outpatient (CLI) | payer MEDICARE, OTHER, SELFPAY ==
[2020-10-06 14:50] VITALS: BMI 27.0
[2020-11-09 18:35] LABS: Rheumatoid Factor < 8.6 IU/mL (<12.0)
[2020-11-10 06:39] LABS: Complement C3 171 mg/dL (82-167)
[2020-11-10 15:28] LABS: DNA (DS) Antibody <1 IU/mL (0-9)
[2020-11-13 15:12] LABS: ANA Screen, IFA Positive (.)
[2020-11-24 10:17] LABS: Cardiolipin IgA Negative
== END ==
PROVIDERS: PCP Physician Assistant; Referring Provider Student in an Organized Health Care Education/Training Program; Visit Provider Student in an Organized Health Care Education/Training Program
DX: R79.82 Elevated C-reactive protein (CRP) (principal); G62.9 Polyneuropathy, unspecified; R61 Generalized hyperhidrosis; M79.10 Myalgia, unspecified site
CPT/HCPCS: 36415; 83520; 86038; 86147; 86160; 86225; 86430

== ENCOUNTER → 2020-12-10 10:00 | Outpatient (CLI) | payer MEDICARE, OTHER, SELFPAY ==
[2020-10-06 14:50] VITALS: BMI 27.0
--- NOTE | 2020-12-10 | DI.RAD.S_ITS ---
PROCEDURE: XR DEXA AXIAL SKELETON INDICATIONS: Asymptomatic menopausal state COMPARISON: None. FINDINGS: This blank DEXA report has been sent in error by the PACS system. The correct and complete report will be forthcoming in 1-2 days. Thank you for your patience and understanding. Dictated by: Kita Ugarte MD, PhD on 12/10/2020 at 17:25 Approved by: Kita Ugarte MD, PhD on 12/10/2020 at 17:25
== END ==
PROVIDERS: Visit Provider Physician Assistant
DX: M85.851 Other specified disorders of bone density and structure, right thigh (principal); Z78.0 Asymptomatic menopausal state
CPT/HCPCS: 77080

== ENCOUNTER → 2021-01-07 11:14 | Outpatient (CLI) | payer MEDICARE, OTHER, SELFPAY ==
[2020-10-06 14:50] VITALS: BMI 27.0
--- NOTE | 2021-01-07 11:17 | DI.US.S_ITS ---
PROCEDURE: US PERIPH VENOUS LOW EXTREM RT INDICATIONS: RIGHT LEG PAIN AND SWELLING TECHNIQUE: Real-time imaging, as well as color and pulse Doppler interrogation, were performed of the lower extremity deep veins from the inguinal ligament to the popliteal fossa. COMPARISON: None. FINDINGS: The common femoral, femoral and popliteal veins are normally compressible, and free of intraluminal thrombus. Color and pulse Doppler demonstrate normal phasic intraluminal flow. There is normal augmentation response to distal compression maneuver. IMPRESSION: No sonographic evidence of DVT. Dictated by: Viet William M.D. on 01/07/2021 at 12:00 Approved by: Viet William M.D. on 01/07/2021 at 12:01
== END ==
PROVIDERS: Referring Provider Physician Assistant; Visit Provider Physician Assistant
DX: M79.604 Pain in right leg (principal); M79.89 Other specified soft tissue disorders
CPT/HCPCS: 93971

== ENCOUNTER → 2021-01-12 15:30 | Outpatient (CLI) | payer MEDICARE, OTHER, SELFPAY ==
[2020-10-06 14:50] VITALS: BMI 27.0
--- NOTE | 2021-01-12 | DI.MRI.S_ITS ---
PROCEDURE: MR LUMBAR SPINE WO CON INDICATIONS: RADICULOPATHY, LUMBOSACRAL REGION TECHNIQUE: Noncontrast sagittal T1 spin echo and T2 fast echo, sagittal STIR, axial T1 and T2 fast spin echo through the lumbar spine. In cases with scoliosis, additional coronal T2 fast spin echo may be performed. COMPARISON: [facility] [place], CR, XR LUMBAR SPINE WITH OLBIQUES PLUS FLEXION EXTENSION, 12/30/2020, 10:44. FINDINGS: Image quality: Excellent. Alignment and Curvature: 5 lumbar type vertebral bodies are present by plain film. Mild grade 1 retrolisthesis of L4 on L5. Bone Marrow: Marrow is of normal overall signal. No acute vertebral body compression fractures. Moderate reactive signal within the endplates adjacent to the L4-L5 intervertebral disc. Spinal Cord: Conus medullaris terminates at the upper L1 level. Visualized cord demonstrates normal signal and size. Paraspinous Soft Tissues: No paravertebral masses. T12-L1: Normal appearance. L1-L2: Mild facet hypertrophy. No significant canal, or foraminal stenosis. L2-L3: Mild disc desiccation and diffuse disc bulge. Mild facet and ligamentum flavum hypertrophy. Mild canal stenosis. No foraminal stenosis. L3-L4: Mild disc desiccation and diffuse disc bulge. Mild facet and ligamentum flavum hypertrophy. Mild canal stenosis. Mild left greater than right foraminal stenosis. L4-L5: Severe disc height loss and desiccation. Mild diffuse disc bulge. Mild facet and ligamentum flavum hypertrophy. Mild epidural lipomatosis. Mild canal stenosis. Mild left greater than right foraminal stenosis. L5-S1: Moderate disc height loss and desiccation. Mild diffuse disc bulge. Mild facet and ligamentum flavum hypertrophy. Mild canal stenosis. Mild left greater than right foraminal stenosis. IMPRESSION: 1. Multilevel degenerative disc and facet disease, as well as ligamentum flavum hypertrophy and epidural lipomatosis. 2. Mild multilevel canal and foraminal stenoses. No neural impingement. Dictated by: Ros Willson M.D. on 01/12/2021 at 16:24 Approved by: Ros Willson M.D. on 01/12/2021 at 16:26
== END ==
PROVIDERS: Referring Provider Physical Medicine & Rehabilitation Pain Medicine; Visit Provider Physical Medicine & Rehabilitation Pain Medicine
DX: M51.16 Intervertebral disc disorders with radiculopathy, lumbar region (principal); M51.17 Intervertebral disc disorders with radiculopathy, lumbosacral region; M48.061 Spinal stenosis, lumbar region without neurogenic claudication; M48.07 Spinal stenosis, lumbosacral region; E88.2 Lipomatosis, not elsewhere classified
CPT/HCPCS: 72148

== ENCOUNTER → 2021-01-14 11:14 | Outpatient (CLI) | payer MEDICARE, OTHER, SELFPAY ==
[2020-10-06 14:50] VITALS: BMI 27.0
[2021-01-14] MEDS: COVID-19 VACC #1, MRNA(MOD) 100 MCG/0.5 ML VIAL IM (11:22)
== END ==
PROVIDERS: Visit Provider Internal Medicine
DX: Z23 Encounter for immunization (principal)
CPT/HCPCS: 0011A; 91301

== ENCOUNTER → 2021-02-11 10:36 | Outpatient (CLI) | payer MEDICARE, OTHER, SELFPAY ==
[2020-10-06 14:50] VITALS: BMI 27.0
[2021-02-11] MEDS: COVID-19 VACC #2, MRNA(MOD) 100 MCG/0.5 ML VIAL IM (10:54)
== END ==
PROVIDERS: Visit Provider Internal Medicine
DX: Z23 Encounter for immunization (principal)
CPT/HCPCS: 0012A; 91301

== ENCOUNTER 2021-03-11 11:20 | Day surgery (SDC) | payer MEDICARE, OTHER, SELFPAY ==
[2020-10-06 14:50] VITALS: BMI 27.0
[2021-03-11] VITALS (8 sets, daily range): BP systolic 116–140; BP diastolic 63–85; PULSE 73–95; RESP 11–16; TEMP 36.2–37.1; O2SAT 97–100; BMI 22.4
[2021-03-11 12:07] LABS: COVID19 -Nasal RAPID Negative (Negative)
[2021-03-11] MEDS: LACTATED RINGERS 1,000 ML 42 ML IV (14:16)
--- NOTE | 2021-03-11 14:50 | PM.PREOP ---
Pre-operative Note COVID-19 COVID-19 status: Negative Interval Note History & Physical reviewed/Exam performed by Physician: Yes Changes to H&P: No
[2021-03-11] MEDS: VANCOMYCIN 1,000 MG/200 ML PIGGYBACK 200 MG IV (15:34)
--- NOTE | 2021-03-11 15:37 | SUR.OPER ---
Supine on padded OR bed, head on pillow, arms secured on padded arm boards at <90 degrees abduction, legs uncrossed, safety belt at thigh, tape over blanket over lower legs.
--- NOTE | 2021-03-11 16:12 | PM.OP.1 ---
Operative Date/Time/Diagnoses Date of procedure: 03/11/21 Time of procedure: 16:12 Pre-op diagnosis: Abscess lateral aspect proximal right leg Post-op diagnosis: same Procedure & Clinicians Procedure: Incision and drainage of abscess lateral aspect right leg Same procedure as scheduled: Yes Indications: The patient is a 65-year-old woman who is now approximately 5 months status post right total knee arthroplasty. On February 12, 2021 she noticed a mass growing around the fibular head. This was initially thought to be a ganglion cyst. Aspiration in the clinic 2 days ago revealed evidence of infection. She presents today for incision and drainage. Consent obtained. Operative site confirmed and marked. Surgeon: Aftab Reed Click Yes if Unassisted: Yes Anesthesia Type: General Operative Notes Findings: Yellowish brown material consistent with an abscess was identified. Cultures were obtained and sent. Closure Type: primary Specimen(s): other (Cultures) Applied: drain(s) Estimated Blood Loss (mL): 5 Blood products transfused: none Tourniquet time (min): 15 Procedure in detail: Patient was taken operative suite and placed under general anesthesia. 1 g of vancomycin was given after cultures was taken. The leg was prepped and draped usual sterile fashion. The leg was exsanguinated with an Esmarch dressing and tourniquet raised to 250 torr. A 2 cm incision was made on the lateral aspect of the 6 cm diameter mass. Copious amounts of yellowish brown material consistent with an abscess was obtained. The wound was copiously irrigated with 1 L of saline to remove all debris. A small suction drain was placed. The wound was then closed with 3-0 nylon horizontal mattress sutures. Xeroform and sterile gauze dressings were then applied. The patient tolerated procedure well restrained the car room good condition. Complications: none Post-operative Condition: stable Disposition: same day surgery Plan for aftercare: Discharge to home. Change tube for drain twice daily. DC drain on Sunday. Follow-up next week.
--- NOTE | 2021-03-11 17:13 | SUR.PHASEII ---
Pt up in WC ready for DC. Waiting for .
== END 2021-03-11 17:19 | disposition home or self-care (01) ==
PROVIDERS: PCP Physician Assistant; Referring Provider Orthopaedic Surgery; Visit Provider Orthopaedic Surgery
PROC: (CPT 10060; principal; 2021-03-11 13:30)
DX: L02.415 Cutaneous abscess of right lower limb (principal); Z96.651 Presence of right artificial knee joint; Z20.822 Contact with and (suspected) exposure to COVID-19
CPT/HCPCS: 10060; 87070; 87075; 87205; 87635; J1100; J2250; J2405; J2704; J3010

== ENCOUNTER → 2021-03-28 11:29 | Outpatient (CLI) | payer MEDICARE, OTHER, SELFPAY ==
[2020-10-06 14:50] VITALS: BMI 27.0
[2021-03-28 12:02] LABS: Add Manual Diff / Slide Review NO; Basophils Absolute Auto 0 /uL (0-100); Basophils Percent Auto 0.8 % (0-2); Eosinophils Absolute Auto 200 /uL (0-450); Eosinophils Percent Auto 3.4 % (2-4); Hematocrit 34.8 % (36-46); Hemoglobin 11.3 g/dL (12.0-16.0); Lymphocytes Absolute Auto 1300 /uL (1100-4500); Lymphocytes Percent Auto 26.4 % (25-40); Mean Corpuscular HGB Conc 32.5 % (30-36); Mean Corpuscular Hemoglobin 27.7 PG (26-34); Mean Corpuscular Volume 85.1 fL (80-100); Monocytes Absolute Auto 400 /uL (0-900); Neutrophils Absolute Auto 2900 /uL (1500-7000); Neutrophils Percent Auto 60.4 % (50-75); Platelet Count 255 X10^3/uL (150-400); Red Blood Cell Count 4.09 X10^6/uL (4.0-5.2); Red Cell Distribution Width 15.5 % (11.6-14.8); White Blood Cell Count 4.8 X10^3/uL (4.5-11.0)
[2021-03-28 12:21] LABS: BUN Creatinine Ratio 27.5 (6-22); Blood Urea Nitrogen 14 mg/dL (7-17); C-Reactive Protein Quant 3.1 mg/dL (<1.0); Calcium 9.8 mg/dL (8.4-10.2); Carbon Dioxide 26 mmol/L (22-32); Chloride 102 mmol/L (98-107); Estimated Glomerular Filt Rate > 60.0 mL/min (>60); Glucose 117 mg/dL (80-110); HEMOLYSIS < 15 (0-50); Potassium 4.2 mmol/L (3.4-5.1); Sodium 138 mmol/L (137-145)
[2021-03-28 15:39] LABS: Erythrocyte Sedimentation Rate 67 MM/HR (0-20)
== END ==
PROVIDERS: PCP Physician Assistant; Referring Provider Orthopaedic Surgery Adult Reconstructive Orthopaedic Surgery; Visit Provider Orthopaedic Surgery Adult Reconstructive Orthopaedic Surgery
DX: Z01.812 Encounter for preprocedural laboratory examination (principal)
CPT/HCPCS: 36415; 80048; 85025; 85651; 86140

== ENCOUNTER 2021-03-30 11:33 | Inpatient (IN) | payer MEDICARE, OTHER, SELFPAY ==
[2020-10-06 14:50] VITALS: BMI 27.0
[2021-03-28 15:03] VITALS: BMI 25.0
[2021-03-30] VITALS (14 sets, daily range): BP systolic 101–141; BP diastolic 53–80; PULSE 71–91; RESP 12–17; TEMP 36.4–37.3; O2SAT 95–100; BMI 22.4
--- NOTE | 2021-03-30 11:15 | DI.RAD.S_ITS ---
PROCEDURE: XR KNEE RT 1TO2V INDICATIONS: hardware removal total knee TECHNIQUE: 2 views of the knee were acquired. COMPARISON: [facility], CR, XR KNEE 4+ VIEWS RIGHT, 12/28/2020, 16:41. [facility], CR, XR KNEE RT 1TO2V, 10/06/2020, 12:34. [facility], CR, XR KNEE LT 1TO2V, 04/21/2020, 10:20. FINDINGS: Bones: The tibial component of the right knee arthroplasty has been removed. Femoral component appears stable. No fractures or dislocations. No suspicious bony lesions. Soft tissues: A joint effusion is present. No suspicious soft tissue calcifications. Skin staple lines. IMPRESSION: Interval removal of the tibial component of the right knee arthroplasty. Dictated by: Carroll Watts M.D. on 03/30/2021 at 18:53 Approved by: Carroll Watts M.D. on 03/30/2021 at 18:54
[2021-03-30 12:21] LABS: COVID19 -Nasal RAPID Negative (Negative)
[2021-03-30] MEDS: LACTATED RINGERS 1,000 ML 42 ML IV ×2 (12:35→16:26)
[2021-03-30] MEDS: ACETAMINOPHEN 325 MG TABLET 975 MG PO (12:42)
[2021-03-30] MEDS: PREGABALIN 75 MG CAPSULE PO (12:43)
[2021-03-30] MEDS: MELOXICAM 7.5 MG TABLET 15 MG PO (12:46)
[2021-03-30] MEDS: TRANEXAMIC ACID 1,000 MG VIAL 2000 MG INJ (14:59)
--- NOTE | 2021-03-30 14:59 | PM.PREOP ---
Pre-operative Note COVID-19 COVID-19 status: Negative Result date/Date tested (Pos, Neg/Pending): 03/30/21 Interval Note History & Physical reviewed/Exam performed by Physician: Yes Changes to H&P: No H&P completed within 30 days and has changed as indicated here:: Plan for I&D right knee TKA, removal of TKA, placement of articulating spacer
[2021-03-30] MEDS: CEFAZOLIN 1 GM VIAL 2 GM IV ×2 (15:20→22:55)
[2021-03-30] MEDS: VANCOMYCIN 1,000 MG/200 ML PIGGYBACK 200 MG IV (15:23)
--- NOTE | 2021-03-30 15:33 | SUR.OPER ---
Supine on padded OR bed. Pillow under head, arms secured on padded armboards <90 degree abduction. Safety belt across torso. Non-operative leg secured with tape over blanket over lower leg. Operative leg positioned on foam brace per Dr. Deng. Foam padded brace at thigh of operative leg.
[2021-03-30] MEDS: KETOROLAC 30 MG/ML VIAL IV (15:53)
[2021-03-30] MEDS: MORPHINE 4 MG/ML INJ INJ (15:53)
[2021-03-30] MEDS: ROPIVACAINE 0.5% PF 5 MG/ML 20ML VIAL 60 ML INJ (15:53)
[2021-03-30] MEDS: SODIUM CHLORIDE IRRIG SOLUTION 250 ML, POVIDONE-IODINE SPONGE STICKS 1 APPLIC IRR (15:54)
[2021-03-30] MEDS: SODIUM CHLORIDE IRRIG SOLUTION 3,000 ML, GENTAMICIN 240 MG IRR (15:56)
[2021-03-30] MEDS: VANCOMYCIN 1,000 MG VIAL 6000 MG TOP (15:59)
--- NOTE | 2021-03-30 17:59 | P.OP_ITS ---
Operative Date/Time/Diagnoses Date of procedure: 03/30/21 Time of procedure: 17:59 Pre-op diagnosis: right knee PJI Post-op diagnosis: same Procedure & Clinicians Procedure: I&D right knee, removal of TKA, placement of articulating abx spacer Same procedure as scheduled: Yes Indications: Patient is a 65-year-old female with a history of a total knee arthroplasty. She presented to [facility] last month with what appeared to be a ganglion cyst over the lateral aspect of her right knee. This was subsequently drained culture positive for Staph coccus aureus as subsequent start draining again very likely this represents a draining sinus tract to the knee. Surgeon: Dariel Deng Abrasive Mixer Helper: Nithin Briones Anesthesia Type: General and Spinal Operative Notes Findings: Draining sinus tract from the total knee to the lateral aspect of the knee lateral to the incision. Bony erosions underneath the femur tibia and patella all indicative of ongoing infection osteomyelitis. Closure Type: non-primary Specimen(s): other (Cultures, PCR) Prosthetic devices, grafts, tissues, transplants, or devices: Cary and nephew legion CR size 6 right femoral component Legion size 3-4, 15 mm thick deep dish polyethylene Ting 232 mm patellar button Two batches of [place] cement with gentamicin with each bag of cement mixed in with 3 g of vancomycin powder. Estimated Blood Loss (mL): 200 Tourniquet time (min): 117 Procedure in detail: Patient was met in the preoperative holding area where the site and side of surgery marked by . Informed consent was reviewed in the preoperative holding area. All last minute questions were answered. Patient brought back to the operating room she received a spinal anesthetic. She was then placed on the operating table she was induced under general anesthesia and the right lower extremity then prepped and draped in normal sterile fashion after placing a nonsterile tourniquet on the right thigh. A surgical time-out was performed verifying the site and side of surgery as well as an the patient. Her wound over the lateral aspect of the knee was marked out and ellipsed with a 10. Blade. A combination of sharp debridement and blunt debridement down to the level of the knee joint was then performed on this lateral based incision this communicated with the joint. This was conclusive proof is a draining sinus tract from a total knee arthroplasty which indicates prosthetic joint infection until otherwise proven. The previous anterior incision over the knee was then made in the skin using 10. Blade and medial and lateral flaps were elevated. Th e knee arthrotomy was then opened cultures were taken at this time. Subsequently a clearance of the medial lateral gutters was then performed as well as thinning of the patellar tendon which had thickening due to scar formation. Once clearance of the medial lateral gutters were performed as able to translate the patella laterally away. I was then able to remove the polyethylene. This allowed again further mobilize the structures of the knee. I then used revision saw blade to loosen up the femoral component on the lateral starting then switched to the medial side to feet up on that side as well as flexible osteotomes were then used to further loosen the femoral component from the femur. There appeared to be loosening of the cement mantle from the underlying bone in several areas. Ultimately has able to remove the femoral component with minimal bone loss there is evident osteomyelitis and ongoing infection underneath the femoral component in several areas. I then turned my attention to the patella the patella was removed using an oscillating saw and again there was noted osteomyelitis and infection deep to the patellar button. This was debrided. Then turned my attention to the tibia side he has a oscillating saw blade to free the tibia from the cement mantle. Overall the cement mantle was pretty good on the tibia with the exception of the posterolateral corner. The tibial plate was then removed the posterolateral corner demonstrated a erosions in the bone down to the posterolateral corner and communicated with draining sinus tract on the lateral aspect of knee. Thorough debridement of the knee was then he performed removing all necrotic appearing tissue as well as nonviable appearing bone. An old cement. Next the wound was thoroughly irrigated with 3 L of normal saline which was spiked with gentamicin. The canals of the femur and tibia were opened up and reamed. After the gentamicin saline wash Betadine was then placed in the wound allowed to sit for several minutes prior to being lavage away with 3 more L of normal saline. Pulse lavage and a brush canal used on the femur and tibial canals. Once this was completed I made a thorough past the knee again and again debride any necrotic appearing tissue. This cement was then mixed in 2 batches the 1st batch with gentamicin impregnated cement with 3 g added vancomycin powder. We selected a lesions size 3-4 15 mm thick deep dish polyethylene I scuffed up the undersurface with a saw blade cement was then placed onto the backside of the tibial polyethylene and cement was placed onto the cut of the tibia itself. Polyethylene was then held in place until cement was fully cured. Cement was then copiously placed to the femur as well as the femoral component which was a size 6 legion without the femoral lugs. This was then placed and the knee was brought into full extension excess cement was cured and more cement was packed around the edges of the femoral component. Cement was then placed on the patella and a patellar button was placed and this was allowed to fully cure. Before any further manipulation of the knee. The medial parapatellar arthrotomy was then closed using 0. PDS in interrupted fashion and the lateral wound which was debrided was also closed with 0 PDS in the deep layer followed by 2 PDS in subcutaneous layer followed by radha on skin. Once the medial parapatellar arthrotomy was closed with interrupted PDS a running Quill suture was then used followed by 2-0 PDS in subcutaneous layer followed by radha on skin. Aquacel dressing was placed a lateral based incision a louisa dressing placed over the primary anterior based incision. Complications: none Post-operative Condition: stable Disposition: PACU Plan for aftercare: Vancomycin until cultures resultes, WBAT RLE, ASA 81mg BID for 6 weeks for DVT prophylaxis
--- NOTE | 2021-03-30 19:00 | SUR.PHASEI ---
1847 to room 221, bed down and locked, call light within reach. Pt awake, oriented, tolerated PO well. Report previously given to GAUDENCIO Jarrett over the phone. Pt care transferred to Roxana Palacios RN. RLE dressing remains CDI with HUSAM on. Clothing bag to the room with patient. She removed her phone from her bag. Spouse present, bag given to him to retrieve items. No further questions from patient or staff.
[2021-03-30] MEDS: LACTATED RINGERS 1,000 ML 100 ML IV (19:21)
--- NOTE | 2021-03-30 19:37 | PC.NURSE ---
Pt to room from PACU. Awake, alert and oriented. Denies pain. SCD's in place. Drsg CDI. Chuck drain in place. Pt denies nausea. Snack provided. Oriented to room and routine.Educated to safety and IS use. Call light in reach.
[2021-03-30 20:04] LABS: Estimated Glomerular Filt Rate > 60.0 mL/min (>60)
[2021-03-30] MEDS: IBUPROFEN 400 MG TABLET PO (21:21)
[2021-03-30] MEDS: ACETAMINOPHEN 325 MG TABLET 650 MG PO (21:21)
[2021-03-30] MEDS: AMITRIPTYLINE 10 MG TABLET 30 MG PO (21:21)
[2021-03-30] MEDS: DOCUSATE 100 MG CAPSULE PO (21:21)
[2021-03-30] MEDS: FAMOTIDINE 20 MG TABLET PO (21:21)
[2021-03-30] MEDS: ASPIRIN EC 81 MG TABLET PO (21:21)
[2021-03-30] MEDS: ATORVASTATIN 20 MG TABLET 80 MG PO (21:21)
[2021-03-30] MEDS: methocarbamoL 500 MG TABLET PO (21:28)
[2021-03-30] MEDS: diphenhydrAMINE 50 MG/ML VIAL 25 MG IV (21:28)
[2021-03-30] MEDS: OXYCODONE IR 5 MG TABLET PO (22:54)
--- NOTE | 2021-03-30 23:53 | PC.NURSE ---
pt was itching. notified provider, vto for benadryl 25mg q6hr prn. pt voiding without difficulty. louisa blinking green. pain controlled with shed tylenol and advil.
[2021-03-31] VITALS (7 sets, daily range): BP systolic 105–135; BP diastolic 53–76; PULSE 60–77; RESP 16–18; TEMP 36.2–36.7; O2SAT 96–100
[2021-03-31] MEDS: IBUPROFEN 400 MG TABLET PO ×6 (00:59→21:30)
[2021-03-31] MEDS: VANCOMYCIN 1,000 MG/200 ML PIGGYBACK 200 MG IV ×2 (02:56→14:24)
[2021-03-31] MEDS: OXYCODONE IR 5 MG TABLET PO (02:56)
[2021-03-31 05:47] LABS: Hematocrit 27.8 % (36-46); Hemoglobin 9.1 g/dL (12.0-16.0)
[2021-03-31] MEDS: CEFAZOLIN 1 GM VIAL 2 GM IV (06:27)
[2021-03-31] MEDS: LACTATED RINGERS 1,000 ML 100 ML IV (06:32)
[2021-03-31] MEDS: OXYCODONE IR 10 MG TABLET PO ×5 (06:44→21:29)
--- NOTE | 2021-03-31 08:41 | PM.PNPO.1 ---
Subjective Subjective Date Patient Seen: 03/31/21 Time Patient Seen: 08:41 Interval history: Pain [id number]. Denies fever or chills. No nausea or vomiting. Exam Vital Signs (past 8 hours): - 03/31/21 05:14 Temperature 98.0 F Pulse Rate 60 Respiratory Rate 16 Blood Pressure 108/58 L Pulse Oximetry 98 Oxygen Delivery Method Room Air Oxygen Flow Rate 0 Narrative Exam Narrative: Pleasant 65-year-old female resting comfortably in bed no apparent distress. Chuck dressing is on and functioning. Dressing is Clean, dry, intact.. Motor functions intact bilateral lower extremities. Sensation grossly intact to light touch bilateral lower extremities. Objective Labs Result Diagrams: 03/31/21 05:04 Labs: Laboratory Results - last 24 hr 03/30/21 03/30/21 03/31/21 11:54 19:43 05:04 Hgb 9.1 L Hct 27.8 L Creatinine 0.52 Estimated GFR > 60.0 SARS-CoV-2 (PCR) Negative Procedure Result Verified Site Gram Stain Final 03/30/21 No Organism Seen No organisms seen White blood cells Occasional WBC seen Aerobic Culture for wounds Pending Anaerobic Culture Pending [facility] Medical History Cholelithiasis Diverticulosis Fatty liver GERD (gastroesophageal reflux disease) HLD (hyperlipidemia) Hypothyroid Numbness Pre-diabetes PVCs (premature ventricular contractions) Sinus bradycardia Statin-induced myositis Surgical History History of arthroplasty of right knee (10/06/20) History of esophagogastroduodenoscopy (EGD) History of hysterectomy History of incision and drainage (03/11/21) Hx of knee surgery (~1984) Hx of LASIK Hx of varicose vein stripping Social History household members: spouse Smoking Status: Never smoker alcohol intake: current Assessment & Plan Post-op Postoperative Procedures: Procedures Operation Date: 03/30/21 13:45 Actual Procedures Side Surgeon p Removal total knee hardware w. antibiotic spacer insertion Right Dariel Deng MD Postop day 1 status post I&D right knee, removal of total knee, placement articulating antibiotic spacer Vancomycin until cultures resulted weight-bearing as tolerated right lower extremity aspirin 81 mg b.i.d. for 6 weeks for DVT prophylaxis
[2021-03-31] MEDS: DULOXETINE 20 MG CAPSULE PO (09:23)
[2021-03-31] MEDS: FAMOTIDINE 20 MG TABLET PO ×2 (09:23→21:30)
[2021-03-31] MEDS: DOCUSATE 100 MG CAPSULE PO ×2 (09:23→21:30)
[2021-03-31] MEDS: ASPIRIN EC 81 MG TABLET PO ×2 (09:24→21:29)
[2021-03-31] MEDS: ACETAMINOPHEN 325 MG TABLET 650 MG PO ×3 (09:25→21:30)
[2021-03-31] MEDS: LEVOTHYROXINE 88 MCG TABLET PO (09:25)
--- NOTE | 2021-03-31 10:20 | PT.IIE ---
Current Diagnoses Presence of right artificial knee joint (03/30/21) Surgery Performed Operation Date: 03/30/21 13:45 Actual Procedures p Removal total knee hardware w. antibiotic spacer insertion(Right) - Dariel Deng MD Surgical History (Last Reviewed 03/31/21 @ 08:43 by Luke Harrison PA-C) History of arthroplasty of right knee (10/06/20) History of esophagogastroduodenoscopy (EGD) History of hysterectomy History of incision and drainage (03/11/21) Hx of knee surgery (~1984) Hx of LASIK Hx of varicose vein stripping Medical History (Last Reviewed 03/31/21 @ 08:43 by Luke Harrison PA-C) Cholelithiasis Diverticulosis Fatty liver GERD (gastroesophageal reflux disease) HLD (hyperlipidemia) Hypothyroid Numbness Pre-diabetes PVCs (premature ventricular contractions) Sinus bradycardia Statin-induced myositis Physical Therapy Inpatient Evaluation/Re-Eval M1 PT/OT-IP Prior Functional Status Start: 03/31/21 11:56 Freq: NEEDED Status: Active Protocol: Document 03/31/21 10:20 AB (Rec: 03/31/21 12:17 AB [id number]) Medical Review Prior Functional Status Medical History Reviewed Yes Communication able to make needs known Mobility and Gait pt stated that after her TKA last september, she uses her FWW initially and was able to progress to a SPC and then to without AD but continues to have a limping gait and that her ROM has decreased. stated she has been independent with all mobilities and ambulation without AD but with difficulty ; stated that she is very active and like to go on [employer] Social History Household Members spouse Living Arrangements House Number of Floors (Floors) Two Floors Number of Stairs To Enter/Railing? stays on main level of the house has 1 steps to enter without rails from the front ramp to enter from the garage; pt prefer to use the front door Home Environment High Toilet,Tub/Shower Home Equipment Front Wheel Walker,Straight Cane,Raised Toilet Seat w/ Armrests,Shower Seat without Backrest,Hand Held Shower,Grab Bars In Shower M2 PT-IP Current Condition Start: 03/31/21 11:56 Freq: NEEDED Status: Active Protocol: Document 03/31/21 10:20 AB (Rec: 03/31/21 12:17 AB [email or web address]) Physical Therapy Current Condition Current Condition Evaluation Date 03/31/21 Treatment Diagnosis s/p R knee I&D w/ spacer placement; difficulty in walking Onset Date 03/30/21 Weight Bearing Status Weight Bearing Status Weight Bear as Tolerated Allowed Weight Bearing Amount (enter % RLE WBAT or #) (%) M3 PT-IP Subjective Start: 03/31/21 11:56 Freq: NEEDED Status: Active Protocol: Document 03/31/21 10:20 AB (Rec: 03/31/21 12:17 AB [email or web address]) Subjective Physical Therapy Visit Type Type Initial Evaluation Visit Start Time 10:20 Visit Stop Time 11:15 Total Visit Minutes 55 Number of RECRUITMENT MANAGER Visits 0 Physical Therapy Visit Comments Patient Comments agreeable to do PT; stated that she is afraid of putting weight on her RLE Therapy Pain Assessment Pain When Pain Assessed At Rest Pain Present Pain Present Pain Reported Location Right knee Intensity 5 Scale Used Numeric (0 - 10) Pain Management Techniques Distraction,Modification of Treatment,Re-positioning, Timing of Activity with Medications M4 PT-IP Mobility and Gait Start: 03/31/21 11:56 Freq: NEEDED Status: Active Protocol: Document 03/31/21 10:20 AB (Rec: 03/31/21 12:17 AB [email or web address]) PT-Bed Mobility Assessment Supine to Sit Supine to Sit Standby Assistance Sit to Supine Sit to Supine Standby Assistance PT-Transfer Assessment Sit to and From Stand Sit to and from Stand Contact Guard Assistance,1 Person Assistance,Use of Upper Extremities Equipment Transfer Assistive Device Gait Belt,Front Wheeled Walker Orthotic/Prosthetic Devices or Brace: No Transfers Transfer Destination Bed,Chair Transfer Technique ambulated using FWW Transfer Ability Level of Assist Contact Guard Assistance,1 Person Assistance,Use of Upper Extremities Comments Mobility Comments pt sitting on chair and agreed to do PT. pt expressed fear of putting weight on RLE. educated pt on safety and weight bearing restriction of WBAT. pt completed sit to stand from chair CGA. cued for R quads activation and upright posture and encouraged to put weight on RLE and how to maintain balance while weight is on RLE. pt completed ambulation using FWW ~ 50 ft CGA and cues. pt with initial limping gait with decrease RLE hip/knee flexion during swing phase. educated pt on techniques to decrease limping gait and increase RLE elevation during swing phase. pt was able to correct but continues to have decrease toe off on RLE but able to tolerate weight bearing on RLE . pt stated that she feels more stable now on RLE and not so afraid to put weight. pt ambulated to EOB. completed sit <>supine SBA. educated on techniques to decrease difficulty elevating RLE up to bed ang pt understood. pt requested to stay up on chair and ambulated from bed to chair using FWW CGA. positioned on chair. call light and table placed within reach. Gait Assessment Gait Gait Assistance Required: Contact Guard Assist Distance (Feet) 50 Able to Maintain Weight Bearing Status Yes During Gait Assistive Devices Assistive Device Gait Belt,Front Wheeled Walker Orthotic/Prosthetic Devices or Brace: No Gait Deviations General Gait Pattern Decreased Stride Length, Decreased Feet Clearance Factors Limiting Gait Function Factors Limiting Gait Function Decreased Activity Tolerance, Decreased Strength,Limited Range of Motion,Pain,Poor Balance Comments Gait Comments pls refer to mobility section for details PT-Balance Assessment Sitting Balance and Reactions Static Sitting Balance Ability Good Dynamic Sitting Balance Ability Good Standing Balance and Reactions Static Standing Balance Ability Fair Dynamic Standing Balance Ability Fair Device Used FWW M5 PT-IP Objective Assessments Start: 03/31/21 11:56 Freq: NEEDED Status: Active Protocol: Document 03/31/21 10:20 AB (Rec: 03/31/21 12:17 AB [id number]) Orientation Orientation/Cognition Level of Alertness Alert Orientation Name,Age,Birthday,Month,Date, Year,Day of Week,Place, Situation Language Function Ability No Deficits Noted Safety Awareness Understands Safety Issues Memory Description No Deficits Noted Gross Range of Motion Lower Extremity ROM Assessment Right Impaired Impairments (+) R knee clunking during movement due to spacer Strength Lower Extremity Strength Assessment Right Impaired Hip 4-/5 Knee 3+/5 Coordination Assessment Gross Coordination Gross Coordination WNL Sensation Assessment Sensation Gross Sensation WNL Muscle Tone Muscle Tone WNL Yes M6 PT-IP Treatment Start: 03/31/21 11:56 Freq: NEEDED Status: Active Protocol: Document 03/31/21 10:20 AB (Rec: 03/31/21 12:17 AB [id number]) Physical Therapy Treatment Exercises Exercises Heel Slides Education Education Provided Precautions,Weight Bearing Status,Post-Op Packet,Safety M7 PT-IP Assessment and Plan Start: 06/17/21 11:56 Freq: NEEDED Status: Active Protocol: Document 03/31/21 10:20 AB (Rec: 03/31/21 12:17 AB [id number]) PT Summary Assessment and Plan Potential Rehabilitation Potential Good Status of Condition at Evaluation Evolving Summary Impairments Pain,ROM,Strength,Balance, Coordination,Sensation,Tone, Cognition,Bed Mobility, Transfers,Gait,Activity Tolerance Assessment Summary pt requiring CGA with transfers and ambulation using FWW. pt has her spouse to assist her at home. will need to complete stair climbing prior to d/c home. pt is receiving antibiotics at this time and d/c plan for medical reasons is pending blood cultures/antibiotic needs and pt stated that she might have to go to SNF due to this. Regarding pt's mobility needs, pt will likely progress during hospital and PT will conduct caregiver training if appropriate and also need stair climbing training before pt can go home. will continue to do PT to improve function and independence. Goals Bed Mobility Goal Independent Transfer Goal Independent,Front Wheeled Walker Gait Goal Independent,Front Wheel Walker Gait Distance 200 Other Goals up/down 1 step using FWW SBA Days to Meet Goals 5 Frequency of Treatment Frequency Of Treatment Twice a Day Treatment Plan Physical Therapy Treatment Plan Bed Mobility Training,Transfer Training,Gait Training, Therapeutic Exercise,Balance Retraining,Post Op Education, Discharge Planning,Hot or Cold Pack,Neuromuscular Re-ed, Coordination Retraining,Manual Therapy Precautions Other Precautions WBAT: RLE Recommendations To Nursing Amount of Assist Needed 1 Person Assist Discharge Recommendations PT Discharge Recommendations Home with Assistance, Outpatient PT Transportation Needs at Discharge Private Vehicle
--- NOTE | 2021-03-31 10:39 | CM.IDA ---
Addendum entered by PARVEZ Keane 04/01/21 12:13: According to Kathryn Jaimes, patient will receive a PICC line today, however, culture results and sensitivities are not back yet so still awaiting those before a DCP can be coordinated. Original Note: Initial DCP Assessment Note Pt is a 65 yo female, resident [facility], now POD#1 from I+D of rt knee, removal of TKA hardware and placement of abx spacer by Dr Deng PCP: Asha Alicea Payer: KELLEE/Shawn Discussed case, briefly, w/Kathryn Jaimes, patient on IV Vancomycin until cultures resulted then team can discuss ongoing abx Met w/patient, introduced role. Patient indp. w/ADLs at baseline and explained after she had DC home s/p TKA, recovery w/spouse to assist went overall well. Patient plans to DC home again w/family to assist and denies need for HH PT at this time. Introduced options for ongoing IV abx; patient has KELLEE/Shawn, unsure if this will cover home infusion. Discussed IV infusion at the [facility], home infusion, and IV abx at SNF. Patient states she plans to be here until Sunday, this GAS USAGE METER CLERK unsure patient will require that many inpatient days (?) Will plan to follow closely to help in coordination of DCP PARVEZ Keane Discharge Planning/Care Management CM Discharge Assessment Start: 03/31/21 10:38 Freq: Status: Active Protocol: Document 03/31/21 10:38 NIURKA (Rec: 03/31/21 10:39 NIURKA [id number]) Discharge Planning Assessment Assigned Gore Seamer PARVEZ Redd DPOA/Assigned Designee Name Tommy Sykes, spouse Contact Information [phone] Advance Directives? Yes Advance Directives on File No History Provided By Patient,Medical Record Prior Living Arrangements House Household Members spouse Type of transporation used prior to Drives own vehicle admit Independent with ADL's Yes Is patient alert and oriented? Yes Comment Patient indicated that she uses a hiking stick if she is out walking her dog. Patient/Family Preference OP PT Therapy Barriers to Discharge Yes Comment IV Abx ? Discharge Plan Home Transportation Arrangement Spouse
--- NOTE | 2021-03-31 10:47 | PC.NURSE ---
Assess- Patient has an aquacel and louisa dressing to her r.knee. She is going to be due for pain medication at 1045. Up with one person assist. Talked to ROGELIO Jaimes and he states that patient can put as much weight on her leg as she can tolerated. CMS wnl and ppx2. She will be working with physical therapy soon.
--- NOTE | 2021-03-31 13:05 | PT.IPTN ---
Current Diagnoses Presence of right artificial knee joint (03/30/21) Surgery Performed Operation Date: 03/30/21 13:45 Actual Procedures p Removal total knee hardware w. antibiotic spacer insertion(Right) - Dariel Deng MD Physical Therapy Treatment Note M2 PT-IP Current Condition Start: 03/31/21 11:56 Freq: NEEDED Status: Active Protocol: Document 03/31/21 10:20 AB (Rec: 03/31/21 12:17 AB [id number]) Physical Therapy Current Condition Current Condition Evaluation Date 03/31/21 Treatment Diagnosis s/p R knee I&D w/ spacer placement; difficulty in walking Onset Date 03/30/21 Weight Bearing Status Weight Bearing Status Weight Bear as Tolerated Allowed Weight Bearing Amount (enter % RLE WBAT or #) (%) M3 PT-IP Subjective Start: 03/31/21 11:56 Freq: NEEDED Status: Active Protocol: Document 03/31/21 13:05 AB (Rec: 03/31/21 16:09 AB [id number]) Subjective Physical Therapy Visit Type Type Treatment Note Visit Start Time 13:05 Visit Stop Time 13:30 Total Visit Minutes 25 Number of TAPE EDITOR Visits 0 Physical Therapy Visit Comments Patient Comments agreeable to do PT Therapy Pain Assessment Pain When Pain Assessed At Rest Pain Present Pain Present Pain Reported Location Right knee Intensity 6 Scale Used Numeric (0 - 10) Pain Management Techniques Apply Cold,Elevation, Modification of Treatment,Re- positioning,Timing of Activity with Medications M4 PT-IP Mobility and Gait Start: 03/31/21 11:56 Freq: NEEDED Status: Active Protocol: Document 03/31/21 13:05 AB (Rec: 03/31/21 16:09 AB [id number]) PT-Transfer Assessment Sit to and From Stand Sit to and from Stand Contact Guard Assistance,1 Person Assistance,Use of Upper Extremities Equipment Transfer Assistive Device Gait Belt,Front Wheeled Walker Orthotic/Prosthetic Devices or Brace: No Comments Mobility Comments pt sitting on chair and agreed to do PT. completed heel slides on the chair. completed sit to stand CGA and ambulated in the hallway using FWW CGA. cued for quads activation, increase RLE elevation. p. requested to stay up on chair. positioned on chair. call light and table placed within reach. ice pack provided. Gait Assessment Gait Gait Assistance Required: Contact Guard Assist Distance (Feet) 125 Able to Maintain Weight Bearing Status Yes During Gait Assistive Devices Assistive Device Gait Belt,Front Wheeled Walker Orthotic/Prosthetic Devices or Brace: No Gait Deviations General Gait Pattern Decreased Stride Length, Decreased Feet Clearance Factors Limiting Gait Function Factors Limiting Gait Function Decreased Activity Tolerance, Decreased Strength,Limited Range of Motion,Pain,Poor Balance,Poor Safety Awareness M5 PT-IP Objective Assessments Start: 03/31/21 11:56 Freq: NEEDED Status: Active Protocol: Document 03/31/21 10:20 AB (Rec: 03/31/21 12:17 AB [id number]) Orientation Orientation/Cognition Level of Alertness Alert Orientation Name,Age,Birthday,Month,Date, Year,Day of Week,Place, Situation Language Function Ability No Deficits Noted Safety Awareness Understands Safety Issues Memory Description No Deficits Noted Gross Range of Motion Lower Extremity ROM Assessment Right Impaired Impairments (+) R knee clunking during movement due to spacer Strength Lower Extremity Strength Assessment Right Impaired Hip 4-/5 Knee 3+/5 Coordination Assessment Gross Coordination Gross Coordination WNL Sensation Assessment Sensation Gross Sensation WNL Muscle Tone Muscle Tone WNL Yes M6 PT-IP Treatment Start: 03/31/21 11:56 Freq: NEEDED Status: Active Protocol: Document 03/31/21 13:05 AB (Rec: 03/31/21 16:09 AB [id number]) Physical Therapy Treatment Exercises Exercises Heel Slides Education Education Provided Weight Bearing Status,Safety M7 PT-IP Assessment and Plan Start: 03/31/21 11:56 Freq: NEEDED Status: Active Protocol: Document 03/31/21 13:05 AB (Rec: 03/31/21 16:09 [id number]) PT Summary Assessment and Plan Potential Rehabilitation Potential Good Summary Impairments Pain,ROM,Strength,Balance, Coordination,Sensation, Cognition,Bed Mobility, Transfers,Gait,Activity Tolerance Progress Towards Goals Progressing Toward Goals Assessment Summary pt requiring CGA with mobility using FWW. pt plans to go home with spouse to assist her . will complete stair climbing training prior to d/c . pt may go home when medically stable. Goals Bed Mobility Goal Independent Transfer Goal Independent,Front Wheeled Walker Gait Goal Independent,Front Wheel Walker Gait Distance 200 Other Goals up/down 1 step using FWW SBA Days to Meet Goals 5 Frequency of Treatment Frequency Of Treatment Twice a Day Treatment Plan Physical Therapy Treatment Plan Bed Mobility Training,Transfer Training,Gait Training, Therapeutic Exercise,Balance Retraining,Post Op Education, Discharge Planning,Hot or Cold Pack,Neuromuscular Re-ed, Coordination Retraining,Manual Therapy Other Recommendations and Next Treatment stair climbing Focus Precautions Other Precautions WBAT: RLE Recommendations To Nursing Amount of Assist Needed 1 Person Assist Discharge Recommendations PT Discharge Recommendations Home with Assistance, Outpatient PT Transportation Needs at Discharge Private Vehicle
[2021-03-31] MEDS: ATORVASTATIN 20 MG TABLET 80 MG PO (21:29)
[2021-03-31] MEDS: AMITRIPTYLINE 10 MG TABLET 30 MG PO (21:30)
[2021-04-01] MEDS: OXYCODONE IR 10 MG TABLET PO ×6 (00:29→20:47)
[2021-04-01] MEDS: IBUPROFEN 400 MG TABLET PO ×6 (00:30→20:39)
[2021-04-01 03:11] LABS: Vancomycin Trough 8.5 ug/mL (10-20)
[2021-04-01] MEDS: VANCOMYCIN 1,000 MG/200 ML PIGGYBACK 200 MG IV ×3 (03:18→19:09)
[2021-04-01] MEDS: SODIUM CHLORIDE 0.9% FLUSH 10 ML IV (03:18)
[2021-04-01] MEDS: VANCOMYCIN TROUGH 1 REQUEST MISC (03:20)
[2021-04-01 05:00] VITALS: BP 96/52; PULSE 69; RESP 16; TEMP 36.1; O2SAT 96
[2021-04-01] MEDS: LEVOTHYROXINE 88 MCG TABLET PO (06:33)
[2021-04-01 07:41] VITALS: BP 106/62; PULSE 70; RESP 14; TEMP 36.3; O2SAT 96
[2021-04-01] MEDS: DOCUSATE 100 MG CAPSULE PO ×2 (08:22→20:38)
[2021-04-01] MEDS: DULOXETINE 20 MG CAPSULE PO (08:22)
[2021-04-01] MEDS: ASPIRIN EC 81 MG TABLET PO ×2 (08:22→20:38)
[2021-04-01] MEDS: FAMOTIDINE 20 MG TABLET PO ×2 (08:22→20:39)
[2021-04-01] MEDS: ACETAMINOPHEN 325 MG TABLET 650 MG PO ×3 (08:23→22:03)
--- NOTE | 2021-04-01 08:56 | PC.NURSE ---
Addendum entered by Norah Minor R.N. 04/01/21 13:11: Patient ambulated in the halls earlier today and tolerated well. She will be getting a PICC Line placed later today as she will be doing outpatient antibiotics. Just given po oxycodone and ibuprofen for complaints of pain 03/24. This has been effective for pain control. Original Note: Patient has an aquacel and louisa dressing intact, bib wrap taken off of patients knee. She is in pain now, given oxycodone about 45 minutes ago. CMS wnl and ppx2. [place] flashing green. Up with one person assist and walker. Patient would like to get a bed bath later and clean up. Will approach her after pain medication has been more effective. Patient just finished breakfast.
--- NOTE | 2021-04-01 10:27 | PM.PNPO.1 ---
Subjective Subjective Date Patient Seen: 04/01/21 Time Patient Seen: 10:27 Interval history: Patient's pain is been severe this morning. She just took another pain pill prior to being seen and notes her pain is now more moderate in nature. Denies fever or chills. No nausea or vomiting. Exam Vital Signs (past 8 hours): - 04/01/21 05:00 04/01/21 07:41 Temperature 97.0 F L 97.4 F L Pulse Rate 69 70 Respiratory Rate 16 14 Blood Pressure 96/52 L 106/62 Pulse Oximetry 96 96 Oxygen Delivery Method Room Air Oxygen Flow Rate 0 Narrative Exam Narrative: Pleasant 65-year-old female resting comfortably in bed in no apparent distress. Chuck dressing is clean and dry. Neurovascular status is intact distal right lower extremity. Objective Labs Result Diagrams: 03/31/21 05:04 Labs: Laboratory Results - last 24 hr 04/01/21 02:28 Vancomycin Trough 8.5 L PFSH Medical History Cholelithiasis Diverticulosis Fatty liver GERD (gastroesophageal reflux disease) HLD (hyperlipidemia) Hypothyroid Numbness Pre-diabetes PVCs (premature ventricular contractions) Sinus bradycardia Statin-induced myositis Surgical History History of arthroplasty of right knee (10/06/20) History of esophagogastroduodenoscopy (EGD) History of hysterectomy History of incision and drainage (03/11/21) Hx of knee surgery (~1984) Hx of LASIK Hx of varicose vein stripping Social History household members: spouse Smoking Status: Never smoker alcohol intake: current Assessment & Plan Post-op Postoperative Procedures: Procedures Operation Date: 03/30/21 13:45 Actual Procedures Side Surgeon p Removal total knee hardware w. antibiotic spacer insertion Right Dariel Deng MD Postop day 2 status post I&D right knee, removal of total knee, placement articulating antibiotic spacer. Continue vancomycin until cultures resulted. Currently cultures are slow growing. Weightbearing as tolerated right lower extremity. Aspirin 81 mg b.i.d. for 6 weeks. PICC line ordered.
[2021-04-01 12:00] VITALS: BP 123/69; PULSE 70; RESP 16; TEMP 36.2; O2SAT 98
--- NOTE | 2021-04-01 12:01 | PT.IPTN ---
Current Diagnoses Presence of right artificial knee joint (03/30/21) Surgery Performed Operation Date: 03/30/21 13:45 Actual Procedures p Removal total knee hardware w. antibiotic spacer insertion(Right) - Dariel Deng MD Physical Therapy Treatment Note M2 PT-IP Current Condition Start: 03/31/21 11:56 Freq: NEEDED Status: Active Protocol: Document 03/31/21 10:20 AB (Rec: 03/31/21 12:17 AB [id number]) Physical Therapy Current Condition Current Condition Evaluation Date 03/31/21 Treatment Diagnosis s/p R knee I&D w/ spacer placement; difficulty in walking Onset Date 03/30/21 Weight Bearing Status Weight Bearing Status Weight Bear as Tolerated Allowed Weight Bearing Amount (enter % RLE WBAT or #) (%) M3 PT-IP Subjective Start: 03/31/21 11:56 Freq: NEEDED Status: Active Protocol: Document 04/01/21 11:26 CLB (Rec: 04/01/21 13:46 CLB [id number]) Subjective Physical Therapy Visit Type Type Treatment Note Visit Start Time 11:26 Visit Stop Time 12:01 Total Visit Minutes 35 Number of GAUGE AND WEIGH MACHINE ADJUSTER Visits 1 Physical Therapy Visit Comments Patient Comments agreeable to do PT Therapy Pain Assessment Pain When Pain Assessed During Mobility Pain Present Pain Present Pain Reported Location Right knee Intensity 5 Scale Used Numeric (0 - 10) Pain Management Techniques Apply Cold,Elevation, Modification of Treatment,Re- positioning,Timing of Activity with Medications M4 PT-IP Mobility and Gait Start: 03/31/21 11:56 Freq: NEEDED Status: Active Protocol: Document 04/01/21 11:26 CLB (Rec: 04/01/21 13:46 CLB [id number]) PT-Transfer Assessment Sit to and From Stand Sit to and from Stand Standby Assistance,1 Person Assistance,Use of Upper Extremities Equipment Transfer Assistive Device Gait Belt,Front Wheeled Walker Orthotic/Prosthetic Devices or Brace: No Transfers Transfer Destination Chair Transfer Technique ambulated using FWW Transfer Ability Level of Assist Standby Assistance,1 Person Assistance,Use of Upper Extremities Comments Mobility Comments Pt sitting in chair performing HS. Pt stood SBA and ambulated in ch to ~200ft to therapy stairs. Pt climbed platform step with FWW CGA. Pt then ambulated ~200ft back to room. Pt sat in chair SBA. Left pt in chair with all needs within reach. Gait Assessment Gait Gait Assistance Required: Standby Assistance,1 Person Assist Distance (Feet) 400 Able to Maintain Weight Bearing Status Yes During Gait Assistive Devices Assistive Device Gait Belt,Front Wheeled Walker Gait Deviations General Gait Pattern Decreased Stride Length, Decreased Feet Clearance Factors Limiting Gait Function Factors Limiting Gait Function Decreased Activity Tolerance, Decreased Strength,Limited Range of Motion,Pain,Poor Balance Comments Gait Comments pls refer to mobility section for details Stair Climbing Assessment Evaluation Level of Assist On Stairs Contact Guard Assistance Devices Stair Climbing Assistive Devices Front Wheel Walker Technique/Endurance Stair Climbing Direction Ascend and Descend Stair Climbing Technique Step to Step Number of Steps Climbed 1 Stair Climbing Set # Repetitions (reps) 1 M5 PT-IP Objective Assessments Start: 03/31/21 11:56 Freq: NEEDED Status: Active Protocol: Document 03/31/21 10:20 AB (Rec: 03/31/21 12:17 AB [id number]) Orientation Orientation/Cognition Level of Alertness Alert Orientation Name,Age,Birthday,Month,Date, Year,Day of Week,Place, Situation Language Function Ability No Deficits Noted Safety Awareness Understands Safety Issues Memory Description No Deficits Noted Gross Range of Motion Lower Extremity ROM Assessment Right Impaired Impairments (+) R knee clunking during movement due to spacer Strength Lower Extremity Strength Assessment Right Impaired Hip 4-/5 Knee 3+/5 Coordination Assessment Gross Coordination Gross Coordination WNL Sensation Assessment Sensation Gross Sensation WNL Muscle Tone Muscle Tone WNL Yes M6 PT-IP Treatment Start: 03/31/21 11:56 Freq: NEEDED Status: Active Protocol: Document 04/01/21 11:26 CLB (Rec: 04/01/21 13:46 CLB [id number]) Physical Therapy Treatment Exercises Exercises Heel Slides Education Education Provided Weight Bearing Status,Safety M7 PT-IP Assessment and Plan Start: 03/31/21 11:56 Freq: NEEDED Status: Active Protocol: Document 04/01/21 11:26 CLB (Rec: 04/01/21 13:46 CLB [id number]) PT Summary Assessment and Plan Potential Rehabilitation Potential Good Summary Impairments Pain,ROM,Strength,Balance, Coordination,Sensation, Cognition,Bed Mobility, Transfers,Gait,Activity Tolerance Progress Towards Goals Progressing Toward Goals Assessment Summary Pt requiring SBA for all mobility using FWW and CGA on platform step. Pt plans to go home with spouse to assist her . Pt able to d/c home when medically stable. Goals Bed Mobility Goal Independent Transfer Goal Independent,Front Wheeled Walker Gait Goal Independent,Front Wheel Walker Gait Distance 200 Other Goals up/down 1 step using FWW SBA Days to Meet Goals 5 Frequency of Treatment Frequency Of Treatment Twice a Day Treatment Plan Physical Therapy Treatment Plan Bed Mobility Training,Transfer Training,Gait Training, Therapeutic Exercise,Balance Retraining,Post Op Education, Discharge Planning,Hot or Cold Pack,Neuromuscular Re-ed, Coordination Retraining,Manual Therapy Precautions Other Precautions WBAT: RLE Recommendations To Nursing Amount of Assist Needed 1 Person Assist Discharge Recommendations PT Discharge Recommendations Home with Assistance, Outpatient PT Transportation Needs at Discharge Private Vehicle
--- NOTE | 2021-04-01 15:04 | PT-IP ANOTE ---
Pt unavailable in process of getting PICC line. Will check back with pt in the morning.
--- NOTE | 2021-04-01 15:59 | DI.RAD.S_ITS ---
PROCEDURE: XR CHEST FOR PICC 1V INDICATIONS: confirm picc placement COMPARISON: [facility], , XR CHEST 2V, 10/27/2019, 12:45. FINDINGS: PICC was placed by the intravenous therapy team from the left side. Fluoroscopic spot film demonstrates the tip of PICC projecting to the area of SVC. IMPRESSION: Tip of PICC projects to the area of SVC. Dictated by: Miguel Bliss M.D. on 04/01/2021 at 16:33 Approved by: Miguel Bliss M.D. on 04/01/2021 at 16:33
[2021-04-01 16:00] VITALS: BP 135/71; PULSE 70; RESP 16; TEMP 36.8; O2SAT 99
--- NOTE | 2021-04-01 16:12 | PC.NURSE ---
Addendum entered by Haylee Edge R.N. 04/01/21 22:54: Up to bathroom with standby assistance. Rates pain to right knee 4/10 with activity. Returned to bed and BL scd's replaced. Oxycodone to manage pain as per emar. HUSAM dressing remains functional and intact to right knee. Resting quietly in bed with eyes closed @ this hour. No signs of distress or discomfort. Addendum entered by Haylee Edge R.N. 04/01/21 19:20: Pt reports pain to right knee now 4.5/10. Ice replaced to knee. Spouse visiting at bedside. Addendum entered by Haylee Edge R.N. 04/01/21 17:34: PICC line placement confirmed per Reymundo with [facility] and okay to now use. Peripheral line removed as per pt request. Pt admits to right knee pain 6/10 and was medicated as per emar. Admits to full sensation to BL LE's. BL calf scd's replaced while in bed. HUSAM dressing and aquacel dressing intact to right knee. Slight edema RLE. Original Note: PICC line placement by [facility]. Awaiting approval following xray to use line. Meds not given d/t these ongoing interventions.
[2021-04-01 20:00] VITALS: BP 116/57; PULSE 72; RESP 17; TEMP 36.5; O2SAT 99
[2021-04-01] MEDS: AMITRIPTYLINE 10 MG TABLET 30 MG PO (20:35)
[2021-04-01] MEDS: ATORVASTATIN 20 MG TABLET 80 MG PO (20:38)
[2021-04-01] MEDS: methocarbamoL 500 MG TABLET PO (20:39)
[2021-04-01 23:38] VITALS: BP 113/57; PULSE 70; RESP 14; TEMP 36.9; O2SAT 99
[2021-04-02] MEDS: OXYCODONE IR 10 MG TABLET PO ×2 (00:25→03:28)
[2021-04-02] MEDS: IBUPROFEN 400 MG TABLET PO ×6 (00:26→20:10)
[2021-04-02 03:10] LABS: Vancomycin Trough 13.5 ug/mL (10-20)
[2021-04-02 03:21] VITALS: BP 108/60; PULSE 72; RESP 14; TEMP 36.4; O2SAT 100
[2021-04-02] MEDS: VANCOMYCIN 1,000 MG/200 ML PIGGYBACK 200 MG IV ×2 (03:27→10:55)
[2021-04-02] MEDS: SODIUM CHLORIDE 0.9% 250 ML 21 ML IV (03:28)
[2021-04-02] MEDS: SODIUM CHLORIDE 0.9% FLUSH 10 ML IV ×5 (03:28→20:12)
[2021-04-02 06:10] LABS: Estimated Glomerular Filt Rate > 60.0 mL/min (>60)
[2021-04-02] MEDS: LEVOTHYROXINE 88 MCG TABLET PO (06:15)
[2021-04-02 06:19] LABS: Vancomycin Peak 25.2 ug/mL (20-40)
[2021-04-02] MEDS: DOCUSATE 100 MG CAPSULE PO ×2 (08:30→20:10)
[2021-04-02] MEDS: ASPIRIN EC 81 MG TABLET PO ×2 (08:30→20:11)
[2021-04-02] MEDS: ACETAMINOPHEN 325 MG TABLET 650 MG PO ×3 (08:30→22:14)
[2021-04-02] MEDS: OXYCODONE IR 5 MG TABLET PO ×4 (08:31→20:17)
[2021-04-02] MEDS: FAMOTIDINE 20 MG TABLET PO ×2 (08:31→20:10)
[2021-04-02] MEDS: DULOXETINE 20 MG CAPSULE PO (08:36)
--- NOTE | 2021-04-02 08:38 | PC.NURSE ---
Patient A/O x 4. Up with PT this AM. C/o pain RLE 02/21. Reports pain has been well controlled with Oxy 5mg Q3 hour. HUSAM intact, serous quarter sized drainage noted on lateral aspect, aquacel intact, quarter sized drainage noted as well. Lungs CTA. IS bedside. Patient on RA. Patient denies N/V, SOB, lightheadedness or dizziness. Afebrile. Patient denies further needs at this time.
--- NOTE | 2021-04-02 09:12 | PT.IPTN ---
Current Diagnoses Presence of right artificial knee joint (03/30/21) Surgery Performed Operation Date: 03/30/21 13:45 Actual Procedures p Removal total knee hardware w. antibiotic spacer insertion(Right) - Dariel Deng MD Physical Therapy Treatment Note M2 PT-IP Current Condition Start: 03/31/21 11:56 Freq: NEEDED Status: Active Protocol: Document 03/31/21 10:20 AB (Rec: 03/31/21 12:17 AB [id number]) Physical Therapy Current Condition Current Condition Evaluation Date 03/31/21 Treatment Diagnosis s/p R knee I&D w/ spacer placement; difficulty in walking Onset Date 03/30/21 Weight Bearing Status Weight Bearing Status Weight Bear as Tolerated Allowed Weight Bearing Amount (enter % RLE WBAT or #) (%) M3 PT-IP Subjective Start: 03/31/21 11:56 Freq: NEEDED Status: Active Protocol: Document 04/02/21 09:01 MB (Rec: 04/02/21 09:12 MB [id number]) Subjective Physical Therapy Visit Type Type Treatment Note Visit Start Time 08:27 Visit Stop Time 08:55 Total Visit Minutes 28 Number of CONTROL ROOM HELPER Visits 0 Physical Therapy Visit Comments Patient Comments Pt is agreeable to PT. Therapy Pain Assessment Pain When Pain Assessed At Rest Pain Present Pain Present Pain Reported Location Right knee Intensity 5 Scale Used Numeric (0 - 10) Pain Management Techniques Re-positioning,Timing of Activity with Medications M4 PT-IP Mobility and Gait Start: 03/31/21 11:56 Freq: NEEDED Status: Active Protocol: Document 04/02/21 09:01 MB (Rec: 04/02/21 09:12 MB [id number]) PT-Bed Mobility Assessment Supine to Sit Supine to Sit Independent Scooting Scooting to Edge of Bed Independent PT-Transfer Assessment Sit to and From Stand Sit to and from Stand Independent Equipment Transfer Assistive Device Gait Belt,Front Wheeled Walker Orthotic/Prosthetic Devices or Brace: No Transfers Transfer Destination Toilet Transfer Technique Ambulated with RW Transfer Ability Level of Assist Independent Comments Mobility Comments PT flattens bed and pt can perform bed mobility with I without rail. I transfers and gait with RW in hallway to platform step, up and down platform step and then back to room to bathroom and I for toileting. Gait Assessment Gait Gait Assistance Required: Independent Distance (Feet) 400 Able to Maintain Weight Bearing Status Yes During Gait Assistive Devices Assistive Device Gait Belt,Front Wheeled Walker Gait Deviations General Gait Pattern Antalgic,Decreased Stride Length,Decreased Feet Clearance,Step-to Gait Factors Limiting Gait Function Factors Limiting Gait Function Decreased Activity Tolerance, Decreased Strength,Limited Range of Motion,Pain Comments Gait Comments Pt gait trains well with spacer and limited ROM, she tends to step up to the front of walker rather than stay inside it and this helps oneida speed and pain. When corrected, she is more nervous about toe off and pain and so in efforts to protect her right leg while encouraging mobility, did not further correct step-to gait to make it better step-through gait. Gait is slow. Stair Climbing Assessment Evaluation Level of Assist On Stairs Standby Assistance Devices Stair Climbing Assistive Devices Front Wheel Walker Technique/Endurance Stair Climbing Direction Ascend and Descend Stair Climbing Technique Step to Step Number of Steps Climbed 1 Stair Climbing Set # Repetitions (reps) 1 Comments Stair Climbing Comments Pt performs well, ascend with left foot and descend first with right foot. PT-Balance Assessment Sitting Balance and Reactions Static Sitting Balance Ability Good Dynamic Sitting Balance Ability Good Standing Balance and Reactions Static Standing Balance Ability Good Dynamic Standing Balance Ability Good Comments Other Balance Tests/Deviations/Treatment Pt is able to take medication : in standing without holding onto AD today. M5 PT-IP Objective Assessments Start: 03/31/21 11:56 Freq: NEEDED Status: Active Protocol: Document 03/31/21 10:20 AB (Rec: 03/31/21 12:17 AB [id number]) Orientation Orientation/Cognition Level of Alertness Alert Orientation Name,Age,Birthday,Month,Date, Year,Day of Week,Place, Situation Language Function Ability No Deficits Noted Safety Awareness Understands Safety Issues Memory Description No Deficits Noted Gross Range of Motion Lower Extremity ROM Assessment Right Impaired Impairments (+) R knee clunking during movement due to spacer Strength Lower Extremity Strength Assessment Right Impaired Hip 4-/5 Knee 3+/5 Coordination Assessment Gross Coordination Gross Coordination WNL Sensation Assessment Sensation Gross Sensation WNL Muscle Tone Muscle Tone WNL Yes M6 PT-IP Treatment Start: 03/31/21 11:56 Freq: NEEDED Status: Active Protocol: Document 04/02/21 09:01 MB (Rec: 04/02/21 09:12 MB [id number]) Physical Therapy Treatment Exercises Exercises Ankle Pumps Education Education Provided Safety Other Treatments Other Treatment Performed Ed pt in benefits of setting a routine at home so that she stays safely active and less worried about her situation. Ed pt in benefits of looking into/asking provider about good diet in setting of healing from infection, careful not to overdo right knee ROM and WB and to stop exercises if pain, ed in benefits of elevation for edema, APs, glute squeezes M7 PT-IP Assessment and Plan Start: 03/31/21 11:56 Freq: NEEDED Status: Active Protocol: Document 04/02/21 09:01 MB (Rec: 04/02/21 09:12 MB [id number]) PT Summary Assessment and Plan Summary Assessment Summary Pt has met PT goals and is safe to get OOB to bathroom with nsg clearance and to gait train in hallways with nsg clearance. Will d/c acute PT. Frequency of Treatment Frequency Of Treatment Discharge Precautions Other Precautions WBAT RLE Recommendations To Nursing Amount of Assist Needed Standby Assistance Discharge Recommendations PT Discharge Recommendations Home with Assistance Transportation Needs at Discharge Private Vehicle
--- NOTE | 2021-04-02 09:15 | PM.PN.1 ---
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 She has a history of a draining sinus tract. Intraoperative cultures have grown back Staph epidermidis so far but the also see a different culture on the plate which has not yet been identified possibly another staph species. Because this would not be able to narrow her antibiotics. Patient has been doing well. Denies any nausea vomiting fevers chills. She is up ambulating with a front wheel walker. Exam Vital Signs (past 8 hours): - 04/02/21 03:21 Temperature 97.5 F L Pulse Rate 72 Respiratory Rate 14 Blood Pressure 108/60 Pulse Oximetry 100 Oxygen Delivery Method Room Air Oxygen Flow Rate 0 Narrative Exam Narrative: Neurovascular intact in the right lower extremity. Chuck dressing is holding suction without significant strike through. There was a small Aquacel dressing on the lateral aspect of the knee also with a small amount of strike through otherwise clean dry and intact. Range of motion from 5? short of full extension to approximately 30? of flexion. Objective Labs Result Diagrams: 03/31/21 05:04 Labs: Laboratory Results - last 24 hr 04/02/21 04/02/21 04/02/21 02:30 05:37 05:37 Creatinine 0.52 Estimated GFR > 60.0 Vancomycin Peak 25.2 Vancomycin Trough 13.5 PFSH Medical History Cholelithiasis Diverticulosis Fatty liver GERD (gastroesophageal reflux disease) HLD (hyperlipidemia) Hypothyroid Numbness Pre-diabetes PVCs (premature ventricular contractions) Sinus bradycardia Statin-induced myositis Surgical History History of arthroplasty of right knee (10/06/20) History of esophagogastroduodenoscopy (EGD) History of hysterectomy History of incision and drainage (03/11/21) Hx of knee surgery (~1984) Hx of LASIK Hx of varicose vein stripping Social History household members: spouse Smoking Status: Never smoker alcohol intake: current Assessment & Plan Assessment & Plan narrative: Patient is a 65-year-old female now postop day 3 from explant of her right knee prosthetic joint infection. Intraoperative cultures have demonstrated Staph epidermidis and there was 1 other clonic growing on the plate which has not yet been identified. Hopefully identification will come back tomorrow. Because of this we have not been able to narrow her antibiotics. Possible discharge tomorrow if Kenna is able to be identified and sensitivities provided. Weightbearing as tolerated right lower extremity Continue vancomycin dosing until bacteria identified Work on gentle range of motion the right knee. Time Spent With Patient Time with patient: less than 15 minutes
[2021-04-02 11:18] VITALS: BP 110/66; PULSE 70; RESP 15; TEMP 36.6; O2SAT 100
[2021-04-02 17:07] VITALS: BP 128/72; PULSE 71; RESP 16; TEMP 36.6; O2SAT 97
[2021-04-02] MEDS: VANCOMYCIN 1,250 MG/250 ML PIGGYBACK 250 MG IV (18:44)
[2021-04-02] MEDS: AMITRIPTYLINE 10 MG TABLET 30 MG PO (20:08)
[2021-04-02] MEDS: ATORVASTATIN 20 MG TABLET 80 MG PO (20:11)
[2021-04-02 21:00] VITALS: BP 125/68; PULSE 75; RESP 16; TEMP 36.5; O2SAT 99
[2021-04-02] MEDS: methocarbamoL 500 MG TABLET PO (22:14)
[2021-04-03] MEDS: IBUPROFEN 400 MG TABLET PO ×3 (01:12→12:26)
[2021-04-03 01:15] VITALS: BP 133/65; PULSE 70; RESP 14; TEMP 36.1; O2SAT 100
[2021-04-03] MEDS: SODIUM CHLORIDE 0.9% 250 ML 21 ML IV (02:59)
[2021-04-03] MEDS: SODIUM CHLORIDE 0.9% FLUSH 10 ML IV ×2 (02:59→09:05)
[2021-04-03] MEDS: VANCOMYCIN 1,250 MG/250 ML PIGGYBACK 250 MG IV (03:00)
[2021-04-03 04:40] VITALS: BP 128/62; PULSE 68; RESP 14; TEMP 36.7; O2SAT 100
[2021-04-03] MEDS: LEVOTHYROXINE 88 MCG TABLET PO (05:27)
--- NOTE | 2021-04-03 05:37 | PC.NURSE ---
2846 Pt. was awake, offered her Ibuprofen but she declined. She stated I'm okay right now, I'm just tired & wants to get more sleep. Will continue POC & monitor.
[2021-04-03 08:00] VITALS: BP 129/66; PULSE 71; RESP 16; TEMP 36.3; O2SAT 99
[2021-04-03] MEDS: DULOXETINE 20 MG CAPSULE PO (08:14)
[2021-04-03] MEDS: FAMOTIDINE 20 MG TABLET PO (08:14)
[2021-04-03] MEDS: DOCUSATE 100 MG CAPSULE PO (08:14)
[2021-04-03] MEDS: ACETAMINOPHEN 325 MG TABLET 650 MG PO (08:14)
[2021-04-03] MEDS: ASPIRIN EC 81 MG TABLET PO (08:14)
[2021-04-03] MEDS: OXYCODONE IR 5 MG TABLET PO (08:22)
[2021-04-03] MEDS: polyethylene glycoL 3350 17 GM POWD.PACK PO (08:22)
--- NOTE | 2021-04-03 08:41 | PM.PN.1 ---
Subjective Subjective Date Patient Seen: 04/03/21 Time Patient Seen: 08:41 Interval history: POD #4 explant 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 She is doing well. Her cultures have finalized with Staph epidermidis sensitive to oxacillin. Pain is controlled this morning. Exam Vital Signs (past 8 hours): - 04/03/21 01:15 04/03/21 04:40 04/03/21 08:00 Temperature 96.9 F L 98.1 F 97.4 F L Pulse Rate 70 68 71 Respiratory Rate 14 14 16 Blood Pressure 133/65 128/62 129/66 Pulse Oximetry 100 100 99 Oxygen Delivery Method Room Air Oxygen Flow Rate 0 Narrative Exam Narrative: Neurovascular intact the right lower extremity. Chuck dressing is holding suction. Small strike through on the Aquacel dressing. Ambulating with some discomfort. Objective Labs Result Diagrams: 03/31/21 05:04 [facility] Medical History Cholelithiasis Diverticulosis Fatty liver GERD (gastroesophageal reflux disease) HLD (hyperlipidemia) Hypothyroid Numbness Pre-diabetes PVCs (premature ventricular contractions) Sinus bradycardia Statin-induced myositis Surgical History History of arthroplasty of right knee (10/06/20) History of esophagogastroduodenoscopy (EGD) History of hysterectomy History of incision and drainage (03/11/21) Hx of knee surgery (~1984) Hx of LASIK Hx of varicose vein stripping Social History household members: spouse Smoking Status: Never smoker alcohol intake: current Assessment & Plan Assessment & Plan narrative: Patient is a 65-year-old female who is status post right total knee arthroplasty which subsequently became infected and developed a draining sinus tract. She is now 4 days status post explantation of this total knee arthroplasty and placement of an antibiotic spacer. Her intraoperative cultures have finalized as Staph epidermidis sensitive to oxacillin. I contacted [facility] Infectious Disease service and they are in formal recommendations would be cefazolin 2 g q.8 hours for the next 6 weeks. Discharge planning is working on setting up infusion services versus is discharged to shelter facility they will contact me later today for discharge paperwork.
--- NOTE | 2021-04-03 10:54 | CM.DPC ---
Addendum entered by PARVEZ Ravi 04/03/21 12:35: ADD: finalized d/c summary and orders for pt to d/c to home today after initial Cefazolin dose here soon and MARY faxed d/c summary with orders, script, and PICC note and spoke to on-call Dawson at [facility] and confirmed they have what they need to open pt to service and just request that she calls them when she is about to leave the hospital so they can coordinate arriving at her house for teaching and providing the mediation. MARY updated MD and RN and pt will d/c home via spouse POV later today with [facility] to follow. BF Original Note: DCP Discharge Home Infusion Per Kathryn MONCADA, pt medically stable to d/c home today now that cultures have returned and pt to d/c with IV Cefazolin 2g Q8 for 6 weeks. SW met bedside with pt and explained role and discussed due to the frequency of the dose outpt infusion clinic not an option currently. Other 2 options are SNF or home infusion which her Medicare does not cover. Pt states she REALLY wants to avoid SNF and agreeable with [facility] referral to determine if her supplemental will cover the cost of home infusion. SW faxed [facility] and called the on-call Pharmacist (as today is Saritha) and they confirmed that pt's supplemental will still require around $800 a week cost but they cannot run her insurance until tomorrow Mon to determine if that cost may be a little less. They confirm that they would like pt to get first dose here at the hospital prior to d/c to confirm pt has no negative reactions but they could start the pt to service tonight for her second dose and would call pt to discuss their services first. MARY met bedside with pt and updated on above and cost and pt confirms she spoke to her and home infusion is still their preference over SNF. Pt agreeable to d/c plan of home this evening with [facility] and the out of pocket expense. MARY updated RN and called Kathryn MONCADA and left msg on d/c plan and need for following MD at ID clinic, [facility] to manage, and any labs and order for Cefazolin to start here prior to d/c. Plan: SW to follow closely for final d/c from Kathryn MONCADA and completion of coordination with [facility] for pt to go home with 6 weeks IV-abx. PARVEZ Ravi
[2021-04-03 11:00] VITALS: BP 105/58; PULSE 77; RESP 16; TEMP 36.7; O2SAT 99
--- NOTE | 2021-04-03 11:08 | PC.NURSE ---
Addendum entered by Shandra Ibanez R.N. 04/03/21 13:28: Spoke with [facility], patient is to call them upon arrival home. Patient given this information and the number to call. Patient and spouse given discharge instructions regarding f/u appointment, wound care, activity, medication and s/s of worsening condition. Patient and spouse verbalized understanding. PICC line remains intact and saline locked. Patient denies further needs at this time. Patient discharged via wheelchair with aide assist. Original Note: Patient up to chair and ambulating in the halls with SBA. Denies change in pain, being controlled with Oxy 5. PICC line CDI, saline locked. Pts dressings on RLE have strike through drainage, intact. Patient on RA, 99%, lungs clear. Patient denies numbness or tingling in extremities, minimal swelling noted around knee. Awaiting BM, BT active x 4. Given Miralax with morning medications.
--- NOTE | 2021-04-03 12:07 | PM.DS.1 ---
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 She developed a draining sinus approximately 9 months status post right total knee arthroplasty. After explant and I and DA articulating spacer was then placed inside the knee with vancomycin impregnated cement. Patient is doing well with physical therapy. Denies any nausea vomiting fevers chills. Intraoperative cultures came back as Staph epidermidis. Plan is for 2 g cefazolin q.8 hours for the next 6 weeks. Discharge Providers Provider Date of admission: 03/30/21 11:33 Discharge Date: 04/03/21 Primary care physician: Asha Alicea PA-C Consults: 03/30/21 11:15 Consult to Anesthesiology Routine Comment: Consulting Provider: Anesthesiologist Reason for consultation: Regional block for post operative pain control Has provider been notified: Yes 03/30/21 18:50 Consult to Discharge Planning Routine Comment: Consult to Physical Therapy Evaluate & Treat Comment: Physician Instructions: postop TKA protocol Consult to Respiratory Therapy Evaluate & Treat Comment: Physician Instructions: Evaluate and treat Discharge provider: Dariel Deng MD Summary Hospital Course Discharge Diagnosis: Status post 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 She underwent explantation of this infected right total knee arthroplasty on Sunday. We have been waiting for finalized cultures. This would been done yesterday however there was 1 colony that was morphologically different than the other: He is and so they want to test this 1 for this specific sensitivities as well. This turned out to be Staph epidermidis as well with the same sensitivities as previously tested colonies. Patient is doing well. Plan is for discharge to home. She will have home infusion services. Status at Discharge Cognitive/behavioral status at discharge: oriented Functional status at discharge: uses cane/walker Overall status at discharge: patient is progressing back to baseline Time Spent with Patient Time spent: Greater than 30 minutes Exam Vital Signs (past 8 hours): - 04/03/21 04:40 04/03/21 08:00 Temperature 98.1 F 97.4 F L Pulse Rate 68 71 Respiratory Rate 14 16 Blood Pressure 128/62 129/66 Pulse Oximetry 100 99 Oxygen Delivery Method Room Air Oxygen Flow Rate 0 Narrative Exam Narrative: Neurovascular intact in right lower extremity. Dressings are clean dry and intact. The Aquacel has 1 small area of strike through otherwise clean intact. Some pain with ambulation. She is already working on range of motion. Doing well. Objective Labs Result Diagrams: 03/31/21 05:04 [facility] Medical History Cholelithiasis Diverticulosis Fatty liver GERD (gastroesophageal reflux disease) HLD (hyperlipidemia) Hypothyroid Numbness Pre-diabetes PVCs (premature ventricular contractions) Sinus bradycardia Statin-induced myositis Surgical History History of arthroplasty of right knee (10/06/20) History of esophagogastroduodenoscopy (EGD) History of hysterectomy History of incision and drainage (03/11/21) Hx of knee surgery (~1984) Hx of LASIK Hx of varicose vein stripping Social History household members: spouse Smoking Status: Never smoker alcohol intake: current Discharge Assessment & Plan Assessment and Plan Assessment: Patient is a 65-year-old female who is now postop day 4 from explantation of a 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 She is approximately 9 months out from a right total knee arthroplasty this developed a draining sinus tract. Intraoperative cultures demonstrated Staph epidermidis. Infectious disease service at [facility] recommended 2 g of IV cefazolin q.8 hours for the next 6 weeks this is in formal consult as they do not cover call at [facility]. I Appreciate their input. Patient wishes to discharge to home a [facility] of [facility] facility. She will have home infusion services. They will be providing the antibiotic infusion. Every other week labs to include CBC and CMP, as well as CRP. Plan of Treatment: -2 g IV cefazolin q.8 hours for 6 weeks -every other week labs (CBC< CMP, CRP) -Follow-up with Dr. Deng 10 days after discharge -Infectious disease referral to [facility] to see Dr. Adan -aspirin 81 mg b.i.d. for 6 weeks for DVT prophylaxis -work on gentle range of motion of the right knee -weightbearing as tolerated right lower extremity -oxycodone 5 mg tab q.4 hours as needed pain Discharge Plan Discharge Plan Patient Disposition: Home Provider Discharge Comment: Patient stable for DC home Discharge orders & Medications Prescriptions: New cefazolin 1 gram Recon Soln 2 gm IV Q8H Qty: 126 RF: 0 aspirin 81 mg Tablet,Delayed Release (Dr/Ec) 81 mg PO BID Qty: 84 RF: 0 oxycodone 5 mg Tablet 5 mg PO Q4HR PRN (Reason: Pain, Moderate) Qty: 50 RF: 0 Continued meloxicam 15 mg Tablet 15 mg PO DAILY RF: 0 tramadol 50 mg Tablet 50 mg PO DAILY RF: 0 levothyroxine 88 mcg Tablet 88 mcg PO DAILY RF: 0 famotidine 20 mg Tablet 20 mg PO BID RF: 0 amitriptyline 10 mg Tablet 30 mg PO BEDTIME RF: 0 omeprazole 20 mg Capsule,Delayed Release(Dr/Ec) 40 mg PO DAILY PRN (Reason: GERD) RF: 0 coenzyme Q10 [CoQ-10] 100 mg Capsule 300 mg PO DAILY RF: 0 rosuvastatin 40 mg Tablet 40 mg PO BEDTIME RF: 0 duloxetine [Cymbalta] 20 mg Capsule,Delayed Release(Dr/Ec) 20 mg PO QAM RF: 0 cholecalciferol (vitamin D3) [Vitamin D3] 50 mcg (2,000 unit) Capsule 50 mcg PO DAILY RF: 0 acetaminophen 650 mg Tablet 650 - 1,300 mg PO DAILY PRN (Reason: Pain) RF: 0 aspirin 81 mg Tablet,Delayed Release (Dr/Ec) 81 mg PO BID Qty: 0 RF: 0 methocarbamol 500 mg Tablet 500 mg PO BEDTIME RF: 0 biotin 1 mg Capsule 1 mg PO DAILY RF: 0 Discontinued oxycodone 5 mg tablet 5 mg PO Q4H PRN (Reason: pain) Qty: 60 RF: 0 Medication counseling provided by Pharmacist: No Follow up/Referrals: Asha Alicea PA-C [Primary Care Provider] - Dariel Deng MD [Physician] - 04/12/21 Diet/Activity/Treatments Diet: Regular Activity: Ambulate as tolerated with FWW Other treatments: IV infusion of Ancef 2grams Q8hrs with Infusion Services Skin/Wound/Dressing Care Dressing: Leave dressings in place. Ok to briefly shower over incisions. Visit Report/Discharge Packet Instructions: DI for Knee Replacement, DI for Prescription Opioid Use Stand Alone Forms: Surgery Discharge Discharge Data Primary Care Provider: Asha Alicea
[2021-04-03] MEDS: CEFAZOLIN 1 GM VIAL 2 GM IV (12:25)
[2021-04-11 14:56] LABS: Bacteria Det by PCR Univ WA SEE SEPERATE REPORT
== END 2021-04-03 13:30 | disposition home or self-care (01) | DRG 467 ==
LOC: OR 12:20 → AC 12:20
PROVIDERS: Admitting Provider Orthopaedic Surgery Adult Reconstructive Orthopaedic Surgery; PCP Physician Assistant; Referring Provider Orthopaedic Surgery Adult Reconstructive Orthopaedic Surgery; Visit Provider Orthopaedic Surgery Adult Reconstructive Orthopaedic Surgery
PROC: 0SRC0EZ Replacement of Right Knee Joint with Articulating Spacer, Open Approach (ICD-10-PCS; principal; 2021-03-30 13:45)
DX: T84.53XA Infection and inflammatory reaction due to internal right knee prosthesis, initial encounter (principal); M86.8X6 Other osteomyelitis, lower leg; A49.01 Methicillin susceptible Staphylococcus aureus infection, unspecified site; I10 Essential (primary) hypertension; E78.5 Hyperlipidemia, unspecified; E03.9 Hypothyroidism, unspecified; F32.9 Major depressive disorder, single episode, unspecified; K21.9 Gastro-esophageal reflux disease without esophagitis; Z20.822 Contact with and (suspected) exposure to COVID-19; Z96.651 Presence of right artificial knee joint
CPT/HCPCS: 36415; 36569; 36592; 73560; 80048; 80202; 82565; 85014; 85018; 85025; 85651; 86140; 87070; 87075; 87077; 87176; 87186; 87205; 87635; 87801; 97110; 97116; 97161; 97530; C1776; A9270; J0690; J1100; J1200; J1642; J1885; J2250; J2270; J2274; J2405; J2704; J3010

== ENCOUNTER → 2021-05-02 12:12 | Outpatient (CLI) | payer MEDICARE, OTHER, SELFPAY ==
[2021-03-30 19:03] VITALS: BMI 22.4
--- NOTE | 2021-05-02 12:24 | DI.ECHO.S_ITS ---
Interpretation Summary 1) Mildly enlarged left ventricle with low normal systolic function (EF 50- 55%). 2) Normal right ventricular size and function. 3) There is moderate mitral regurgitation. 4) Compared to the Echo done 10/07/2019, no significant change when compared visually. Procedure: A two-dimensional transthoracic echocardiogram with color flow and Doppler was performed. The study quality was technically adequate. Comparison is made with the echocardiogram of 10/07/2019. The patient was in sinus rhythm with heart rates between 63-76 bpm during the exam. Left Ventricle: The left ventricle is mildly dilated. There is normal left ventricular wall thickness. Left ventricular systolic function is low normal. The ejection fraction is estimated to be 50-55%. There are no focal wall motion abnormalities. Right Ventricle: The right ventricle is normal in size and function. Atria: Both atria are normal in size. There is no Doppler evidence for an interatrial shunt. Mitral Valve: The mitral valve leaflets appear borderline thickened, but open well. The mitral valve leaflets are slightly calcified. There is moderate mitral regurgitation. Aortic Valve: The aortic valve is normal in structure and function. There is mild aortic regurgitation. Tricuspid Valve: The tricuspid valve is normal in structure and function. There is a trace or physiologic amount of tricuspid regurgitation. The right ventricular systolic pressure is estimated to be at least 21 mmHg based on an estimated right atrial pressure of 3 mm Hg. Pulmonic Valve: The pulmonic valve is not well seen, but is grossly normal. There is trace pulmonic regurgitation. Great Vessels: The aortic root is normal size. The aortic arch could not be visualized. The IVC is of normal diameter and collapses greater than 50% with a sniff. This suggests a low right atrial pressure of 3 mm Hg. Pericardium/ Pleura There is no pericardial effusion. There is no pleural effusion. MMode/2D Measurements & Calculations LVIDd: 5.5 cm LVOT diam: 2.2 cm LVIDs: 3.7 cm Ao root diam: 3.1 cm FS: 31.9 % IVSd: 0.82 cm LVPWd: 0.90 cm LV perla. diameter/BSA (cm/m^2): 2.4 LV sys. diameter/BSA (cm/m^2): 1.6 LA A2 area: 23.1 cm2 RA long axis: 4.5 cm LA A4 area: 20.3 cm2 RA area: 13.1 cm2 LA length (vol): 5.5 cm RA vol: 32.6 ml LA vol: 72.1 ml RA : 14.3 ml/m2 LA vol index: 31.5 ml/m2 IVC diam: 1.9 cm RVD1 (basal): 2.7 cm Doppler Measurements & Calculations Ao V2 max: 135.6 cm/sec LVOT Max Leroy: 109.7 cm/sec Ao V2 mean: 98.8 cm/sec LV V1 max P.8 mmHg Ao max P.4 mmHg LV V1 VTI: 22.5 cm Ao mean P.3 mmHg ALEXA(I,D): 3.1 cm2 Ao V2 VTI: 28.3 cm ALEXA(V,D): 3.2 cm2 sev ratio: 0.80 ALEXA indexed to BSA (cm^2/m^2): 1.4 MV E max leroy: 66.7 cm/sec TR max leroy: 212.8 cm/sec MV A max leroy: 94.7 cm/sec TR max P.1 mmHg MV E/A: 0.70 PA V2 max: 102.5 cm/sec Med Peak E' Leroy: 8.2 cm/sec PA V2 mean: 76.9 cm/sec E/E' med: 8.1 PA mean P.6 mmHg Lat Peak E' Leroy: 11.4 cm/sec PA pr(Accel): 31.2 mmHg E/E' lat: 5.9 E/e' average: 7.0 MV dec time: 0.26 sec MR ERO: 0.15 cm2 MR VTI: 209.4 cm MR PISA: 2.5 cm2 MR flow rate: 86.9 cm3/sec MR PISA radius: 0.63 cm SV(LVOT): 87.7 ml Reading Physician:[id number] P
== END ==
PROVIDERS: PCP Physician Assistant; Referring Provider Internal Medicine Cardiovascular Disease; Visit Provider Internal Medicine Cardiovascular Disease
DX: I08.0 Rheumatic disorders of both mitral and aortic valves (principal); R01.1 Cardiac murmur, unspecified
CPT/HCPCS: 93306

== ENCOUNTER → 2021-06-17 09:42 | Outpatient (CLI) | payer MEDICARE, OTHER, SELFPAY ==
[2021-03-30 19:03] VITALS: BMI 22.4
[2021-06-17 10:13] LABS: Add Manual Diff / Slide Review NO; Basophils Absolute Auto 100 /uL (0-100); Basophils Percent Auto 1.2 % (0-2); Eosinophils Absolute Auto 300 /uL (0-450); Eosinophils Percent Auto 5.7 % (2-4); Hematocrit 37.8 % (36-46); Hemoglobin 12.8 g/dL (12.0-16.0); Lymphocytes Absolute Auto 1300 /uL (1100-4500); Lymphocytes Percent Auto 28.3 % (25-40); Mean Corpuscular HGB Conc 33.9 % (30-36); Mean Corpuscular Hemoglobin 29.3 PG (26-34); Mean Corpuscular Volume 86.4 fL (80-100); Monocytes Absolute Auto 400 /uL (0-900); Monocytes Percent Auto 8.2 % (3-14); Neutrophils Absolute Auto 2600 /uL (1500-7000); Neutrophils Percent Auto 56.6 % (50-75); Platelet Count 198 X10^3/uL (150-400); Red Blood Cell Count 4.37 X10^6/uL (4.0-5.2); Red Cell Distribution Width 14.7 % (11.6-14.8); White Blood Cell Count 4.5 X10^3/uL (4.5-11.0)
[2021-06-17 10:37] LABS: BUN Creatinine Ratio 27.8 (6-22); Blood Urea Nitrogen 15 mg/dL (7-17); C-Reactive Protein Quant < 0.5 mg/dL (<1.0); Calcium 9.5 mg/dL (8.4-10.2); Carbon Dioxide 27 mmol/L (22-32); Chloride 106 mmol/L (98-107); Estimated Glomerular Filt Rate > 60.0 mL/min (>60); Glucose 112 mg/dL (80-110); HEMOLYSIS < 15 (0-50); Potassium 4.4 mmol/L (3.4-5.1); Sodium 139 mmol/L (137-145)
== END ==
PROVIDERS: PCP Physician Assistant; Referring Provider Orthopaedic Surgery Adult Reconstructive Orthopaedic Surgery; Visit Provider Orthopaedic Surgery Adult Reconstructive Orthopaedic Surgery
DX: Z01.818 Encounter for other preprocedural examination (principal); R73.9 Hyperglycemia, unspecified; Z01.812 Encounter for preprocedural laboratory examination
CPT/HCPCS: 36415; 80048; 83036; 85025; 86140; 93005

== ENCOUNTER → 2021-06-22 10:29 | Outpatient (CLI) | payer MEDICARE, OTHER, SELFPAY ==
[2021-03-30 19:03] VITALS: BMI 22.4
[2021-06-22 14:05] LABS: COVID19 -Nasal RAPID Negative (Negative)
== END ==
PROVIDERS: PCP Physician Assistant; Visit Provider Physician Assistant
DX: Z20.822 Contact with and (suspected) exposure to COVID-19 (principal)
CPT/HCPCS: 87635; C9803

== ENCOUNTER 2021-06-24 10:25 | Observation (INO) | payer MEDICARE, OTHER, SELFPAY ==
[2021-03-30 19:03] VITALS: BMI 22.4
[2021-06-17 14:01] VITALS: BMI 25.0
[2021-06-23] VITALS (13 sets, daily range): BP systolic 106–146; BP diastolic 7–79; PULSE 77–900; RESP 11–24; TEMP 36.2–37; O2SAT 94–98; BMI 25.0
[2021-06-23] MEDS: LACTATED RINGERS 1,000 ML 42 ML IV ×2 (09:21→12:29)
[2021-06-23] MEDS: PREGABALIN 75 MG CAPSULE PO (09:28)
[2021-06-23] MEDS: ACETAMINOPHEN 325 MG TABLET 975 MG PO (09:28)
[2021-06-23] MEDS: CELECOXIB 200 MG CAPSULE PO (09:29)
--- NOTE | 2021-06-23 10:47 | PM.PREOP ---
Pre-operative Note COVID-19 COVID-19 status: Negative Result date/Date tested (Pos, Neg/Pending): 06/22/21 Interval Note History & Physical reviewed/Exam performed by Physician: Yes Changes to H&P: No H&P completed within 30 days and has changed as indicated here:: Plan for removal of abx spacer right knee and revision right total knee arthroplasty. Recent labs reviewed. CRP <0.5
--- NOTE | 2021-06-23 11:00 | DI.RAD.S_ITS ---
PROCEDURE: XR KNEE RT 1TO2V INDICATIONS: POST OP KNEE RT TECHNIQUE: 3 views of the knee were acquired. COMPARISON: [facility], CR, XR KNEE RT 1TO2V, 03/30/2021, 18:14. [facility], CR, XR KNEE RT 1TO2V, 10/06/2020, 12:34. FINDINGS: Bones: Post revision right total knee arthroplasty. Hardware projects in the expected location. No fractures or dislocations. No suspicious bony lesions. Soft tissues: No joint effusion. No suspicious soft tissue calcifications. IMPRESSION: Expected immediate postoperative appearance of the right total knee arthroplasty revision. Dictated by: aCrroll Watts M.D. on 06/23/2021 at 15:16 Approved by: Carroll Watts M.D. on 06/23/2021 at 15:18
[2021-06-23] MEDS: CEFAZOLIN VIAL 2 GM in SODIUM CHLORIDE 0.9% 100 ML 200 ML IV (11:11)
[2021-06-23] MEDS: TRANEXAMIC ACID 1,000 MG VIAL 1000 MG INJ ×2 (11:15→12:51)
--- NOTE | 2021-06-23 11:35 | SUR.OPER ---
Supine on padded OR bed. Pillow under head, arms secured on padded armboards <90 degree abduction. Safety belt across torso. Non-operative leg secured with tape over blanket over lower leg. Operative leg draped free with Nathe knee positioner on bed Foam padded brace at thigh of operative leg.
[2021-06-23] MEDS: ROPIVACAINE 0.5% PF 5 MG/ML 20ML VIAL 60 ML INJ (11:52)
[2021-06-23] MEDS: MORPHINE 4 MG/ML INJ INJ (11:52)
[2021-06-23] MEDS: KETOROLAC 30 MG/ML VIAL IV (11:52)
[2021-06-23] MEDS: VANCOMYCIN 1,000 MG VIAL 1000 MG TOP (11:54)
--- NOTE | 2021-06-23 14:47 | P.OP_ITS ---
Operative Date/Time/Diagnoses Date of procedure: 06/23/21 Time of procedure: 14:47 Pre-op diagnosis: right knee PJI Post-op diagnosis: same Procedure & Clinicians Procedure: Removal antibiotic spacer, placement of revision right total knee arthroplasty. Same procedure as scheduled: Yes Indications: Patient is a 65-year-old female who had a right total knee arthroplasty with subsequent became infected with Staph species. This was subsequently explanted and antibiotic cement spacer was placed and she was started on 6 weeks IV antibiotics. She subsequently cleared her infection I confirmed by Synovasure aspiration and recent blood labs which demonstrate a CRP of less than 0.5. Surgeon: Dariel Deng School Photographer: Lizbeth Lemus Anesthesia Type: General and Spinal Operative Notes Findings: Intact antibiotic spacer right knee no signs of ongoing infection Closure Type: non-primary Prosthetic devices, grafts, tissues, transplants, or devices: Cary and nephew size 6, right legion Oxinium constrained femoral component 5 mm L-shaped lateral distal and lateral posterior augments 5 mm medial distal augment 4 mm offset cheesemaker helper 13 mm x 160 mm legion Press-Fit stem Size 4, right legion revision tibial base plate 2x 5 mm size 3-4 legion nila stepped screw on tibial wedges 2 mm legion offset cheesemaker helper 13 mm x 160 mm [facility] Press-Fit stem Size 3-4, 12 mm thick legion PS XLPE high flexion articular insert Estimated Blood Loss (mL): 200 Tourniquet time (min): 120 Procedure in detail: Patient was met in the preoperative holding area where the site and side of surgery marked by . Informed consent was reviewed in clinic was also reviewed the preoperative holding area. All last minute questions were answered. Patient then brought back in the operating room she was induced under general anesthesia after receiving a spinal anesthetic. The right lower extremity then prepped and draped in normal sterile fashion after placement of a nonsterile tourniquet on the right thigh. Time-out was performed verifying the site and side of surgery as well as the name of the patient. Her previous surgical incision was marked out with a surgical pen the right lower extremity then exsanguinated with an Esmarch and the tourniquet was inflated turned 50 mmHg. Her previous incision was used this was opened with a 10. Blade. A 10. Blade was then used to elevate medial lateral flaps. Remnant sutures of PDS and Quill suture were removed as they were encountered. A medial peel was then performed followed by release of some scar tissue where Hoffa's fat pad previously was. This allowed us to start to mobilize the patella. Cleaning of the medial lateral gutters then ensued. Scar tissue from around the patellar button was then released as well as releasing scar tissue from the patellar tendon this allowed us the translate the patella out of the way I then worked on freeing up the femoral component oscillating revision saw blades were used followed by flexible osteotomes and cement flag osteotomes to remove cement eventually working on getting the femur loose. The give us more space I then worked on the tibial side I was able to separate the polyethylene from the cement and thereby work on removing the cement with cement flag osteotomes. Once the cement was completely removed from the tibia I returned my attention to the femur I was able to remove the femoral component with minimal bone loss and was able remove the cement plug. At this point the patella was then interrogated patellar button appeared very well fixed. And due to previously noted thin patella I elected to leave the patella in place with the patellar button that was cemented at the last surgery with antibiotic cement. I then hand reamed the femur and tibia sequentially both to a 13 mm diameter Reamer. I then placed the Reamer in the tibia and made my revision saw cut based off of my intramedullary Reamer in the tibia. I took a skim cut of the tibia verifying alignment with a drop faina. Once this was completed I then sized the tibia to a size 4. And due to multiple previous surgeries we likely would need augment on the tibial side to restore joint line. I then placed the tibial base plate and a appeared that we need 2 mm offset cheesemaker helper this was set to approximately 9:30 on the tibial tray. The offset cheesemaker helper was then reamed for and a trial tibial stem with the offset cheesemaker helper and the size 4 tibial tray with medial and lateral augments were then placed. I then turned my attention to the femur I hand reamed the femur again to a tight fit I then used a Reamer to make room for the offset cheesemaker helper I trialed with the size 6 femur it appeared that we need to externally rotate as well as posterior rise the femur posterior eyes a sawyer was set at directly posterior. I then removed this trial component and placed a revision 5 1 cutting block and took 5 mm off the posterior aspect of the medial femoral condyle to give us more external rotation we then trialed with 5 mm distal augments at the medial and lateral femur bilaterally as well as a posterior augments of for the lateral femur. No augment was used on the medial posterior aspect of the femur. This was then trialed and had good stability with a 11 mm or 12 mm thick high flexion polyethylene. Knee was stable to varus valgus stress at full extension. There was a little bit of laxity in full flexion especially on the lateral side maximize external rotation. I then decided to take 2 more middle mm from my distal femoral cut to help with balancing this was then performed. We then re- trialed the components and I was satisfied with this stability. Tourniquet was then let down as we prep for cementing local anesthetic was then infiltrated in the periarticular soft tissues the pulse lavage was used to thoroughly irrigate the cut surface of the tibia and femur as well as the femoral and tibial canals. And the components were assembled on the back table. Once radius cement the tourniquet was then reinflated to 250 mmHg. The pulse lavage was then used to reprep the cut surface of the femur and tibia. Cement was then mixed with 3 g of added vancomycin cement was placed on the tibial component on the undersurface of the tray and including the cheesemaker helper region. Cement was then finger packed on the cut surface of the tibia. This was then malleted into place and excess cement was removed. I then placed cement on the cut surface of the femur with exception of the posterior condylar cut cement was placed on all surfaces of the backside of the femoral component including the cheesemaker helper but without placing cement on the stem portion itself. This was then malleted into place and excess cement was removed. A high flexion 11 mm thick polyethylene insert was then placed the knee was brought into full extension and allowed and the cement was allowed to fully cure prior to any further manipulation. Betadine solution was placed in the wound. This was then lavaged with copious normal saline. Excess cement was removed from the femur and tibia and trialed with a 12 mm thick polyethylene we side ago this has had better stability in flexion and she was still able to achieve full extension. This was then placed make sure the medial lateral tabs were well engaged. Hemostasis was achieved using electrocautery. The medial parapatellar arthrotomy was closed using 1. Vicryl interrupted fashion followed by running Quill suture followed by 2 Vicryl interrupted fashion the subcutaneous layer followed by radha on skin and a louisa dressing. Post-operative Condition: stable Disposition: PACU Plan for aftercare: Weightbearing as tolerated lower extremity, 24 hours postop antibiotics, aspirin 81 mg b.i.d. for 6 weeks for DVT prophylaxis.
--- NOTE | 2021-06-23 16:00 | SUR.PHASEI ---
1539 Patient transferred in bed by Sandee RATLIFF to room 204 on room air. Denied pain, Tolerated ice chips. With belongings. Alert, oriented.
--- NOTE | 2021-06-23 19:16 | PC.NURSE ---
Addendum entered by Anita Desir R.N. 06/24/21 00:03: patient reports not needing the benadryl i am fine w/o it. report to teja Roblero RN. Original Note: arrived to floor at 1545 s/p right total knee. alert and oriented, denies pain/discomfort. bib wrap around RLE. HOB upright for comfort. o2 2lpm via nc. sats mid 90s w/ o2. 1900: call to surgeon (alyce) Dr pulliam is online activist for Dr Deng: patient is requesting prn benadryl. reports itching to face. answering service reports message was sent via pager, if i dont hear back from MD by 30 min to call answering service back. patient notified of above. patient offered a hot wet washcloth, lotion to face, this was helpful. awiating MD response.
[2021-06-23] MEDS: CEFAZOLIN 1 GM VIAL 2 GM IV (19:53)
[2021-06-23] MEDS: ACETAMINOPHEN 325 MG TABLET 650 MG PO (19:55)
[2021-06-23] MEDS: IBUPROFEN 400 MG TABLET PO ×2 (19:57→21:57)
[2021-06-23] MEDS: LACTATED RINGERS 1,000 ML 100 ML IV (20:07)
[2021-06-23] MEDS: ATORVASTATIN 20 MG TABLET 80 MG PO (21:52)
[2021-06-23] MEDS: methocarbamoL 500 MG TABLET PO (21:52)
[2021-06-23] MEDS: AMITRIPTYLINE 10 MG TABLET 30 MG PO (21:52)
[2021-06-23] MEDS: ASPIRIN EC 81 MG TABLET PO (21:53)
[2021-06-23] MEDS: FAMOTIDINE 20 MG TABLET PO (21:53)
[2021-06-23] MEDS: DOCUSATE 100 MG CAPSULE PO (21:53)
[2021-06-24 00:18] VITALS: BP 122/64; PULSE 76; RESP 16; TEMP 36.7; O2SAT 96
[2021-06-24] MEDS: diphenhydrAMINE 25 MG TABLET 50 MG PO (00:56)
[2021-06-24] MEDS: IBUPROFEN 400 MG TABLET PO ×5 (01:35→17:53)
[2021-06-24] MEDS: CEFAZOLIN 1 GM VIAL 2 GM IV (03:41)
[2021-06-24] MEDS: diphenhydrAMINE 25 MG TABLET PO (05:20)
[2021-06-24] MEDS: LEVOTHYROXINE 88 MCG TABLET PO (05:36)
[2021-06-24 05:47] VITALS: BP 108/69; PULSE 69; RESP 16; TEMP 36.7; O2SAT 97
[2021-06-24 06:18] LABS: Hematocrit 28.8 % (36-46); Hemoglobin 9.6 g/dL (12.0-16.0)
[2021-06-24 07:42] VITALS: BP 105/67; PULSE 71; RESP 14; TEMP 36.4; O2SAT 100
[2021-06-24] MEDS: DULOXETINE 20 MG CAPSULE PO (08:42)
[2021-06-24] MEDS: ACETAMINOPHEN 325 MG TABLET 650 MG PO ×2 (08:43→14:06)
[2021-06-24] MEDS: DOCUSATE 100 MG CAPSULE PO (08:43)
[2021-06-24] MEDS: FAMOTIDINE 20 MG TABLET PO (08:43)
[2021-06-24] MEDS: ASPIRIN EC 81 MG TABLET PO (08:50)
[2021-06-24] MEDS: SODIUM CHLORIDE 0.9% FLUSH 10 ML IV (09:04)
[2021-06-24] MEDS: OXYCODONE IR 10 MG TABLET PO ×2 (09:53→17:53)
--- NOTE | 2021-06-24 11:00 | PT.IIE ---
Current Diagnoses Personal history of other diseases of the musculoskeletal system and connective tissue (06/23/21) Surgery Performed Operation Date: 06/23/21 10:15 Actual Procedures p Total Knee Arthroplasty Revision, remove spacer(Right) - Dariel Deng MD Medical History (Last Updated 06/17/21 @ 14:07 by Megan Gutierrez RN) Cholelithiasis Diverticulosis Fatty liver GERD (gastroesophageal reflux disease) HLD (hyperlipidemia) Hypothyroid Numbness Osteomyelitis Pre-diabetes PVCs (premature ventricular contractions) Sinus bradycardia Statin-induced myositis Physical Therapy Inpatient Evaluation/Re-Eval M1 PT/OT-IP Prior Functional Status Start: 06/24/21 12:26 Freq: NEEDED Status: Active Protocol: Document 06/24/21 11:00 AB (Rec: 06/24/21 12:35 AB [email or web address]) Medical Review Prior Functional Status Medical History Reviewed Yes Communication able to make needs known Mobility and Gait pt stated that she is independent with all mobilities and ambulation without AD Social History Household Members spouse Living Arrangements House Number of Floors (Floors) Two Floors Number of Stairs To Enter/Railing? pt stays on main level of the house has 1 step to enter Home Environment High Toilet,Tub/Shower Home Equipment Front Wheel Walker,Four Wheel Walker,Straight Cane,Raised Toilet Seat w/Armrests,Shower Seat without Backrest,Hand Held Shower,Grab Bars In Shower M2 PT-IP Current Condition Start: 06/24/21 12:26 Freq: NEEDED Status: Active Protocol: Document 06/24/21 11:00 AB (Rec: 06/24/21 12:35 AB [email or web address]) Physical Therapy Current Condition Current Condition Evaluation Date 06/24/21 Treatment Diagnosis s/p R TKA revision; difficulty in walking Onset Date 06/23/21 Weight Bearing Status Weight Bearing Status Weight Bear as Tolerated Allowed Weight Bearing Amount (enter % RLE WBAT or #) (%) M3 PT-IP Subjective Start: 06/24/21 12:26 Freq: NEEDED Status: Active Protocol: Document 06/24/21 11:00 AB (Rec: 06/24/21 12:35 AB [email or web address]) Subjective Physical Therapy Visit Type Type Initial Evaluation Visit Start Time 11:00 Visit Stop Time 11:42 Total Visit Minutes 42 Number of FIBER LOCKING SUPERVISOR Visits 0 Physical Therapy Visit Comments Patient Comments agreeable to do PT Therapy Pain Assessment Pain When Pain Assessed At Rest Pain Present Pain Present Pain Reported Location Right knee Intensity 5 Scale Used Numeric (0 - 10) Pain Management Techniques Apply Cold,Modification of Treatment,Re-positioning, Timing of Activity with Medications M4 PT-IP Mobility and Gait Start: 06/24/21 12:26 Freq: NEEDED Status: Active Protocol: Document 06/24/21 11:00 AB (Rec: 06/24/21 12:35 [email or web address]) PT-Bed Mobility Assessment Supine to Sit Supine to Sit Standby Assistance PT-Transfer Assessment Equipment Transfer Assistive Device Gait Belt,Front Wheeled Walker Orthotic/Prosthetic Devices or Brace: No Transfers Transfer Destination Chair Transfer Technique ambulated Transfer Ability Level of Assist Standby Assistance Gait Assessment Gait Gait Assistance Required: Standby Assistance Distance (Feet) 150 Able to Maintain Weight Bearing Status Yes During Gait Assistive Devices Assistive Device Gait Belt,Front Wheeled Walker Orthotic/Prosthetic Devices or Brace: No Gait Deviations General Gait Pattern Antalgic,Step-to Gait Factors Limiting Gait Function Factors Limiting Gait Function Decreased Activity Tolerance, Decreased Strength,Limited Range of Motion,Pain,Poor Balance Stair Climbing Assessment Evaluation Level of Assist On Stairs Standby Assistance,Contact Guard Assistance,1 Person Assistance Devices Stair Climbing Assistive Devices Front Wheel Walker Technique/Endurance Stair Climbing Direction Ascend and Descend Stair Climbing Technique Step to Step Number of Steps Climbed 1 Query Text: Stair Climbing Set # Repetitions (reps) 2 PT-Balance Assessment Sitting Balance and Reactions Static Sitting Balance Ability Normal Dynamic Sitting Balance Ability Normal Standing Balance and Reactions Static Standing Balance Ability Good Dynamic Standing Balance Ability Fair Device Used FWW M5 PT-IP Objective Assessments Start: 06/24/21 12:26 Freq: NEEDED Status: Active Protocol: Document 06/24/21 11:00 AB (Rec: 06/24/21 12:35 AB [id number]) Orientation Orientation/Cognition Level of Alertness Alert Orientation Name,Age,Birthday,Month,Date, Year,Day of Week,Place, Situation Language Function Ability No Deficits Noted Safety Awareness Understands Safety Issues Memory Description No Deficits Noted Gross Range of Motion Lower Extremity ROM Impairments R knee flexion: ~ 90 deg Strength Lower Extremity Strength Assessment Right Impaired Hip 4+/5 Knee 4-/5 Sensation Assessment Sensation Gross Sensation WNL Muscle Tone Muscle Tone WNL Yes M6 PT-IP Treatment Start: 06/24/21 12:26 Freq: NEEDED Status: Active Protocol: Document 06/24/21 11:00 AB (Rec: 06/24/21 12:35 AB [id number]) Physical Therapy Treatment Education Education Provided Precautions,Weight Bearing Status,Post-Op Packet,Safety M7 PT-IP Assessment and Plan Start: 06/24/21 12:26 Freq: NEEDED Status: Active Protocol: Document 06/24/21 11:00 AB (Rec: 06/24/21 12:35 AB [id number]) PT Summary Assessment and Plan Potential Rehabilitation Potential Good Status of Condition at Evaluation Stable Summary Impairments Pain,ROM,Strength,Balance, Coordination,Sensation,Tone, Cognition,Bed Mobility, Transfers,Gait,Activity Tolerance Assessment Summary pt requiring SBA to CGA with mobility using FWW and plans to go home with spouse to assist her. pt may go home when medically stable. Goals Bed Mobility Goal Independent Transfer Goal Independent,Front Wheeled Walker Gait Goal Independent,Front Wheel Walker Gait Distance 250 Other Goals up/down 1 step using FWW mod I Days to Meet Goals 3 Frequency of Treatment Frequency Of Treatment Twice a Day Treatment Plan Physical Therapy Treatment Plan Bed Mobility Training,Transfer Training,Gait Training, Therapeutic Exercise,Balance Retraining,Post Op Education, Discharge Planning,Hot or Cold Pack,Neuromuscular Re-ed, Coordination Retraining,Manual Therapy Precautions Other Precautions RLE WBAT Recommendations To Nursing Amount of Assist Needed Standby Assistance Discharge Recommendations PT Discharge Recommendations Home with Assistance, Outpatient PT Transportation Needs at Discharge Private Vehicle
[2021-06-24 11:21] VITALS: BP 116/58; PULSE 71; RESP 16; TEMP 36.4; O2SAT 98
--- NOTE | 2021-06-24 13:06 | CM.IDA ---
Initial DCP Assessment Note Pt is a 65 yo female, resident [facility], now POD#1 from Removal antibiotic spacer, placement of revision right total knee arthroplasty by Dr Deng PCP: Asha Alicea Payer: KELLEE/Shawn Reviewed chart, pt discussed in multidisciplinary rounds this morning. Patient is eager to return home, indp and active at baseline, and therapy has cleared patient for return home w/spouse to assist. No needs expected from DC planning team although will remain available in case this changes before DC. PARVEZ Redd Discharge Planning/Care Management CM Discharge Assessment Start: 06/24/21 13:04 Freq: Status: Active Protocol: Document 06/24/21 13:05 [email or web address] (Rec: 06/24/21 13:06 [email or web address] [id number]) Discharge Planning Assessment Assigned Speech Therapy Director PARVEZ Redd DPOA/Assigned Designee Name Timoteo Sykes, spouse Contact Information [phone] Advance Directives? Yes Advance Directives on File No History Provided By Patient,Medical Record Prior Living Arrangements House Household Members spouse Type of transporation used prior to Drives own vehicle admit Independent with ADL's Yes Is patient alert and oriented? Yes Comment Patient indicated that she uses a hiking stick if she is out walking her dog. Patient/Family Preference OP PT Therapy Barriers to Discharge No Discharge Plan Home Transportation Arrangement Spouse Referrals Initiated None needed
[2021-06-24 16:00] VITALS: BP 110/63; PULSE 78; RESP 16; RESP 18; TEMP 36.1; O2SAT 98
--- NOTE | 2021-06-24 18:02 | P.DS_ITS ---
History of Present Illness History of Present Illness Date Patient Seen: 06/24/21 Time Patient Seen: 09:45 Chief complaint: Right total knee arthroplasty infection Narrative: The patient is complaining of mild right knee pain this morning, which is well controlled with current pain regimen. She denies any fevers, chills, night sweats. She denies any numbness or tingling in her bilateral lower extremities. No nausea or vomiting. She will be working with physical therapy. Overall she is feeling well and would like to go home today. Discharge Providers Provider Date of admission: 06/24/21 10:25 Discharge Date: 06/24/21 Primary care physician: Asha Alicea PA-C Consults: 06/23/21 09:18 Consult to Anesthesiology Routine Comment: Consulting Provider: Anesthesiologist Reason for consultation: Regional block for post operative pain control 06/23/21 15:55 Consult to Discharge Planning Routine Comment: Consult to Physical Therapy Evaluate & Treat Comment: Physician Instructions: postop TKA protocol Consult to Respiratory Therapy Evaluate & Treat Comment: Physician Instructions: Evaluate and treat Discharge provider: Lizbeth Lemus PA-C Summary Hospital Course 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 Same procedure as scheduled: Yes Indications: Patient is a 65-year-old female who had a right total knee arthroplasty with subsequent became infected with Staph species.? This was subsequently explanted and antibiotic cement spacer was placed and she was started on 6 weeks IV antibiotics.? She subsequently cleared her infection I confirmed by Synovasure aspiration and recent blood labs which demonstrate a CRP of less than 0.5. Surgeon: Dariel Deng Raking Machine Operator: Lizbeth Lemus Anesthesia Type: General and Spinal Operative Notes Findings: Intact antibiotic spacer right knee no signs of ongoing infection Closure Type: non-primary Prosthetic devices, grafts, tissues, transplants, or devices: Cary and nephew size 6, right legion Oxinium constrained femoral component 5 mm L-shaped lateral distal and lateral posterior augments 5 mm medial distal augment 4 mm offset vinyl cutter 13 mm x 160 mm [facility] Press-Fit stem Size 4, right [facility] revision tibial base plate 2x 5 mm size 3-4 legion nila stepped screw on tibial wedges 2 mm legion offset vinyl cutter 13 mm x 160 mm [facility] Press-Fit stem Size 3-4, 12 mm thick [facility] PS XLPE high flexion articular insert Estimated Blood Loss (mL): 200 Tourniquet time (min): 120 Status at Discharge Cognitive/behavioral status at discharge: oriented Functional status at discharge: uses cane/walker Overall status at discharge: patient is progressing back to baseline Exam Vital Signs (past 8 hours): - 06/24/21 11:21 06/24/21 16:00 Temperature 97.5 F L 97.0 F L Pulse Rate 71 78 Respiratory Rate 16 16 Blood Pressure 116/58 L 110/63 Pulse Oximetry 98 98 Oxygen Delivery Method Room Air Oxygen Flow Rate 0 Narrative Exam Narrative: Pleasant 65-year-old female, resting comfortably in bed, no acute distress. Incision is clean, dry, intact. Bilateral lower extremities with normal motor functions. Sensation is grossly intact to light touch in bilateral lower extremities. Both legs are warm and dry. Bilateral calves are soft, nontender to palpation. Objective Labs Result Diagrams: 06/24/21 06:01 Labs: Laboratory Results - last 24 hr 06/24/21 06:01 Hgb 9.6 L Hct 28.8 L PFSH Medical History Cholelithiasis Diverticulosis Fatty liver GERD (gastroesophageal reflux disease) HLD (hyperlipidemia) Hypothyroid Numbness Osteomyelitis Pre-diabetes PVCs (premature ventricular contractions) Sinus bradycardia Statin-induced myositis Surgical History History of arthroplasty of right knee (10/06/20) History of esophagogastroduodenoscopy (EGD) History of hysterectomy History of incision and drainage (03/11/21) History of surgery (03/30/21) Hx of knee surgery (~1984) Hx of LASIK Hx of varicose vein stripping Social History household members: spouse Smoking Status: Never smoker alcohol intake: current Discharge Assessment & Plan Assessment and Plan Assessment: Stable status post right total knee arthroplasty revision Plan of Treatment: Discharge home today after cleared by PT Weightbearing as tolerated with a front wheel walker Aspirin 81 mg b.i.d. x6 weeks for DVT prophylaxis Continue with current pain regimen Discharge Plan Discharge Plan Patient Disposition: Home Discharge orders & Medications Prescriptions: New oxycodone 10 mg tablet See Rx Instructions .ROUTE .COMPLEX PRN (Reason: pain) Qty: 42 RF: 0 Continued meloxicam 15 mg Tablet 15 mg PO DAILY RF: 0 tramadol 50 mg Tablet 50 mg PO DAILY RF: 0 levothyroxine 88 mcg Tablet 88 mcg PO DAILY RF: 0 famotidine 20 mg Tablet 20 mg PO BID RF: 0 amitriptyline 10 mg Tablet 30 mg PO BEDTIME RF: 0 omeprazole 20 mg Capsule,Delayed Release(Dr/Ec) 40 mg PO DAILY PRN (Reason: GERD) RF: 0 coenzyme Q10 [CoQ-10] 100 mg Capsule 300 mg PO DAILY RF: 0 rosuvastatin 40 mg Tablet 40 mg PO BEDTIME RF: 0 duloxetine [Cymbalta] 20 mg Capsule,Delayed Release(Dr/Ec) 20 mg PO QAM RF: 0 cholecalciferol (vitamin D3) [Vitamin D3] 50 mcg (2,000 unit) Capsule 50 mcg PO DAILY RF: 0 acetaminophen 650 mg Tablet 650 - 1,300 mg PO DAILY PRN (Reason: Pain) RF: 0 aspirin 81 mg Tablet,Delayed Release (Dr/Ec) 81 mg PO BID Qty: 0 RF: 0 methocarbamol 500 mg Tablet 500 mg PO BEDTIME RF: 0 biotin 1 mg Capsule 1 mg PO DAILY RF: 0 oxycodone 5 mg Tablet 5 mg PO Q4HR PRN (Reason: Pain, Moderate) Qty: 50 RF: 0 Follow up/Referrals: Asha Alicea PA-C [Primary Care Provider] - Dariel Deng MD [Physician] - (10-14 days for a postoperative visit) Diet/Activity/Treatments Diet: Diet as Tolerated and Regular Activity: Weight-bearing as tolerated with front wheeled walker Continue with home physical therapy exercises Cold/Heat Therapy: Use ice as needed for pain Other treatments: Aspirin 81 mg twice daily x6 weeks to prevent blood clots Use Tylenol and ibuprofen [id number] for pain relief Use oxy 1/2 to 1 tablet every 4 hours for moderate to severe pain Skin/Wound/Dressing Care Report to your healthcare provider any signs of infection, such as:: chills, fever, night sweats, unusual drainage and unusual redness Dressing: Okay to shower with incision covered with dressing. Please call offic e if dressing becomes wet, soiled, saturated Visit Report/Discharge Packet Instructions: DI for Knee Replacement, DI for Prescription Opioid Use Stand Alone Forms: Surgery Discharge Discharge Data Primary Care Provider: Asha Alicea Attending Provider: Dariel Deng
== END 2021-06-24 18:25 | disposition home or self-care (01) ==
LOC: OR 13:26 → AC 13:26
PROVIDERS: Admitting Provider Orthopaedic Surgery Adult Reconstructive Orthopaedic Surgery; PCP Physician Assistant; Referring Provider Orthopaedic Surgery Adult Reconstructive Orthopaedic Surgery; Visit Provider Orthopaedic Surgery Adult Reconstructive Orthopaedic Surgery
PROC: (CPT 27487; principal; 2021-06-23 10:15)
DX: T84.53XA Infection and inflammatory reaction due to internal right knee prosthesis, initial encounter (principal); E03.9 Hypothyroidism, unspecified; R73.03 Prediabetes; I49.3 Ventricular premature depolarization; E78.5 Hyperlipidemia, unspecified; I10 Essential (primary) hypertension; F32.9 Major depressive disorder, single episode, unspecified
CPT/HCPCS: 27487; 36415; 73560; 85014; 85018; 94760; 97161; 97530; C1776; G0378; A9270; J0690; J1100; J1885; J2270; J2274; J2405; J2704

== ENCOUNTER → 2021-08-04 11:05 | Outpatient (CLI) | payer MEDICARE, OTHER, SELFPAY ==
[2021-06-23 08:37] VITALS: BMI 25.0
--- NOTE | 2021-08-04 | DI.MG.S_ITS ---
BILATERAL DIGITAL SCREENING MAMMOGRAM 3D/2D WITH CAD: 08/04/2021 CLINICAL: Routine screening. Comparison is made to exams dated: 07/17/2020 mammogram, 04/18/2019 mammogram - [facility], 02/20/2018 mammogram - [facility], 05/05/2019 mammogram - [facility], 02/06/2017 mammogram, and 02/03/2016 mammogram - [facility]. There are scattered fibroglandular elements in both breasts. Current study was also evaluated with a Computer Aided Detection (CAD) system. No significant masses, calcifications, or other findings are seen in either breast. There has been no significant interval change. IMPRESSION: NEGATIVE There is no mammographic evidence of malignancy. A 1 year screening mammogram is recommended. This exam was interpreted at Station ID: [id number]. NOTE: For mammograms, a report in lay terms will be sent to the patient. Approximately 15% of breast malignancies will not be visualized mammographically. In the management of a palpable breast mass, a negative mammogram must not discourage biopsy of a clinically suspicious lesion. Electronically Signed By: Carroll de/jami:08/04/2021 12:33:26 letter sent: Normal Exam ACR BI-RADS Category 1: Negative [id number]
== END ==
PROVIDERS: PCP Physician Assistant; Referring Provider Physician Assistant; Visit Provider Physician Assistant
DX: Z12.31 Encounter for screening mammogram for malignant neoplasm of breast (principal)
CPT/HCPCS: 77063; 77067

== ENCOUNTER → 2022-04-29 10:51 | Outpatient (CLI) | payer MEDICARE, OTHER, SELFPAY ==
[2021-06-23 08:37] VITALS: BMI 25.0
--- NOTE | 2022-04-29 10:54 | DI.RAD.S_ITS ---
PROCEDURE: XR WRIST RT MIN 3V INDICATIONS: fall TECHNIQUE: 4 views of the wrist were acquired. COMPARISON: None. FINDINGS: Bones: No fractures or dislocations. No suspicious bony lesions. First carpometacarpal and triscaphe joint space narrowing with subchondral sclerosis and subchondral cysts. Scaphoid view: Unremarkable Soft tissues: No suspicious soft tissue calcifications. IMPRESSION: Degenerative changes without fracture or malalignment Approved by: Arpan Ferrari M.D. on 04/29/2022 at 11:37
--- NOTE | 2022-04-29 10:54 | DI.RAD.S_ITS ---
PROCEDURE: XR FOREARM RT 2V INDICATIONS: fall TECHNIQUE: 2 views of the forearm were acquired. COMPARISON: None. FINDINGS: Bones: No fractures or dislocations. No suspicious bony lesions. Soft tissues: No suspicious soft tissue calcifications or masses. IMPRESSION: Unremarkable right forearm radiographs Approved by: Arpan Ferrari M.D. on 04/29/2022 at 11:38
== END ==
PROVIDERS: PCP Physician Assistant; Referring Provider Nurse Practitioner Family; Visit Provider Nurse Practitioner Family
DX: M79.631 Pain in right forearm (principal); W19.XXXA Unspecified fall, initial encounter
CPT/HCPCS: 73090; 73110

== ENCOUNTER → 2022-08-11 15:33 | Outpatient (CLI) | payer MEDICARE, OTHER, SELFPAY ==
[2021-06-23 08:37] VITALS: BMI 25.0
--- NOTE | 2022-08-11 15:35 | DI.RAD.S_ITS ---
PROCEDURE: XR CHEST 2V INDICATIONS: Cough not improving after 7 days, Covid + TECHNIQUE: 2 views of the chest were acquired. COMPARISON: [facility], CR, XR CHEST FOR PICC 1V, 04/01/2021, 15:54. FINDINGS: Surgical changes and devices: None. Lungs and pleura: Lungs are clear. No pleural effusions or pneumothorax. Mediastinum: Mediastinal contours are normal. Heart size is normal. Bones and chest wall: No suspicious bony abnormalities. Soft tissues appear unremarkable. IMPRESSION: No acute cardiopulmonary pathology. Dictated by: Miguel Bliss M.D. on 08/11/2022 at 16:03 Approved by: Miguel Bliss M.D. on 08/11/2022 at 16:03
== END ==
PROVIDERS: PCP Physician Assistant; Referring Provider Registered Nurse; Visit Provider Registered Nurse
DX: U07.1 COVID-19 (principal); R05.9 Cough, unspecified
CPT/HCPCS: 71046

== ENCOUNTER 2022-08-13 20:35 | Emergency (ER) | payer MEDICARE, OTHER, SELFPAY ==
[2021-06-23 08:37] VITALS: BMI 25.0
[2022-08-13] VITALS (10 sets, daily range): BP systolic 124–151; BP diastolic 60–71; PULSE 72–92; RESP 22–24; TEMP 37.4–38.7; O2SAT 94–99
--- NOTE | 2022-08-13 20:48 | DI.RAD.S_ITS ---
PROCEDURE: XR CHEST 2V INDICATIONS: covid+, soa TECHNIQUE: 2 views of the chest were acquired. COMPARISON: [facility], CR, XR CHEST 2V, 08/11/2022, 15:38. FINDINGS: Surgical changes and devices: None. Lungs and pleura: Lungs are clear. No pleural effusions or pneumothorax. Mediastinum: Mediastinal contours are normal. Heart size is normal. Bones and chest wall: No suspicious bony abnormalities. Soft tissues appear unremarkable. IMPRESSION: 1. No acute cardiopulmonary disease. Dictated by: Aftab Best M.D. on 08/13/2022 at 21:12 Approved by: Aftab Best M.D. on 08/13/2022 at 21:21
[2022-08-13 21:56] LABS: Add Manual Diff / Slide Review NO; Basophils Absolute Auto 100 /uL (0-100); Basophils Percent Auto 0.8 % (0-2); Eosinophils Absolute Auto 0 /uL (0-450); Eosinophils Percent Auto 0.4 % (2-4); Hemoglobin 11.8 g/dL (12.0-16.0); Lymphocytes Absolute Auto 1500 /uL (1100-4500); Lymphocytes Percent Auto 15.4 % (25-40); Mean Corpuscular HGB Conc 35.7 % (30-36); Mean Corpuscular Hemoglobin 30.5 PG (26-34); Mean Corpuscular Volume 85.5 fL (80-100); Monocytes Absolute Auto 1600 /uL (0-900); Monocytes Percent Auto 16.5 % (3-14); Neutrophils Absolute Auto 6300 /uL (1500-7000); Neutrophils Percent Auto 66.9 % (50-75); Platelet Count 269 X10^3/uL (150-400); Red Blood Cell Count 3.85 X10^6/uL (4.0-5.2); Red Cell Distribution Width 13.2 % (11.6-14.8); White Blood Cell Count 9.5 X10^3/uL (4.5-11.0)
[2022-08-13] MEDS: SODIUM CHLORIDE 0.9% 1,000 ML 1000 ML IV (21:56)
[2022-08-13] MEDS: ACETAMINOPHEN 325 MG TABLET 975 MG PO (21:57)
--- NOTE | 2022-08-13 22:03 | ED_ITS ---
HPI - SOB/Dyspnea General Chief Complaint: Shortness of Breath/Dyspnea Stated Complaint: Fever 102.3F, coughing, Oxy sats 93% Time Seen by Provider: 08/13/22 21:30 Source: patient Mode of arrival: Ambulatory Limitations: no limitations History of Present Illness HPI Narrative: This is a 66-year-old female with history of chronic back and knee pain, prior right knee infection requiring IV antibiotics and removal knee replacement, dyslipidemia, hypothyroidism and GERD. Patient follows with Dr. Batres for Infectious Disease. Patient states she was diagnosed with COVID 10 days ago her had symptoms 5 days later she developed symptoms did a home test. She is had fevers which have been increasing over the past 10 days, no chest pain but persistent cough with some productive sputum, denies headaches, some mild myalgias, she denies any increasing shortness of breath, denies any nausea or vomiting. She is had decreased appetite. She denies diarrhea constipation, no urinary symptoms such as dysuria urgency or frequency. Her prior knee infection she states she had decreased range of motion with discomfort and developed an abscess at the site over several months. She has not been having similar sy mptoms there has been no warmth, erythema or other skin changes appreciated but she is concerned about potential infection because of her past history. She was treated in 2020 with IV cefazolin followed by [facility] and had her original surgery for her knee done by Dr. Reed and subsequent surgeries by Dr. Donovan for a total of 4, she is also had a complete hysterectomy, , venous ligation. She is allergic to ampicillin gets a rash. She denies tobacco, occasional alcohol, THC gummy sometimes but no IV drugs or illicit. Her primary care is [facility]. She has had Moderna injections x2 and 1 booster for COVID. Related Data Home Medications Medication Instructions Recorded Confirmed acetaminophen 650 mg tablet 650 - 1,300 mg PO DAILY PRN Pain 10/04/20 04/29/22 amitriptyline 10 mg tablet 30 mg PO BEDTIME 10/04/20 04/29/22 cholecalciferol (vitamin D3) 50 50 mcg PO DAILY 10/04/20 04/29/22 mcg (2,000 unit) capsule (Vitamin D3) coenzyme Q10 100 mg capsule 300 mg PO DAILY 10/04/20 04/29/22 (CoQ-10) duloxetine 20 mg capsule,delayed 20 mg PO QAM 10/04/20 04/29/22 release (Cymbalta) famotidine 20 mg tablet 20 mg PO BID 10/04/20 04/29/22 levothyroxine 88 mcg tablet 88 mcg PO DAILY 10/04/20 04/29/22 meloxicam 15 mg tablet 15 mg PO DAILY 10/04/20 04/29/22 omeprazole 20 mg capsule,delayed 40 mg PO DAILY PRN GERD 10/04/20 04/29/22 release rosuvastatin 40 mg tablet 40 mg PO BEDTIME 10/04/20 04/29/22 tramadol 50 mg tablet 50 mg PO DAILY 10/04/20 04/29/22 biotin 1 mg capsule 1 mg PO DAILY 03/11/21 04/29/22 methocarbamol 500 mg tablet 500 mg PO BEDTIME 03/11/21 04/29/22 Previous Rx's Medication Instructions Recorded aspirin 81 mg tablet,delayed 81 mg PO BID #0 tabs 10/07/20 release oxycodone 5 mg tablet 5 mg PO Q4HR PRN Pain, Moderate 04/03/21 #50 tabs oxycodone 10 mg tablet See Rx Instructions .Route 06/24/21 .COMPLEX PRN pain #42 tabs amoxicillin 875 mg-potassium 1 tab PO Q12H #20 tabs 08/13/22 clavulanate 125 mg tablet Allergies Allergy/AdvReac Type Severity Reaction Status Date / Time ampicillin Allergy Severe Full body Verified 04/29/22 10:54 rash Review of Systems Review of Systems ROS Unobtainable: All systems reviewed & are unremarkable except as noted in HPI and below Patient History Medical History Cholelithiasis Diverticulosis Fatty liver GERD (gastroesophageal reflux disease) HLD (hyperlipidemia) Hypothyroid Numbness Osteomyelitis Pre-diabetes PVCs (premature ventricular contractions) Sinus bradycardia Statin-induced myositis Surgical History History of arthroplasty of right knee (10/06/20) History of esophagogastroduodenoscopy (EGD) History of hysterectomy History of incision and drainage (03/11/21) History of surgery (03/30/21) Hx of knee surgery (~1984) Hx of LASIK Hx of varicose vein stripping Social History household members: spouse Smoking Status: Never smoker alcohol intake: current Smoking Status: Never smoker alcohol intake frequency: a few times a week Substance Use Type: does not use, prescription drug and other Exam Narrative Exam Narrative: GEN: well nourished, well appearing [default value], alert and oriented x 3, patient appears to be in mild distress. HEENT: Atraumatic, pupils are equal round reactive to light, extraocular movements are intact, nares are clear, Throat is clear without any exudates, erythema, tonsillar enlargement or uvular deviation HEART: Regular rate and rhythm without murmur, clicks, rubs. pulses are equal in upper and lower extremities LUNGS:Lungs clear to auscultation, no wheezes, rales, crackles, chest moves symmetrically, no tachypnea accessory muscle use. Patient has dry persistent cough. ABD:bowel sounds normal, soft, non-tender, no guarding, rebound, rigidity, no masses noted, no hepatosplenomegaly :No CVA tenderness MSCL: Non-tender, normal range of motion, no warmth erythema of the bilateral knees. She has healed incision midline over the right knee. No muscle atrophy, muscles strength 5/5 upper and lower extremities, full range of motion NEURO:CN 2-12 intact, sensation normal, GCS of 15 SKIN: No rash, erythema or other skin changes Initial Vital Signs Initial Vital Signs: Vital Signs Temperature 100.5 F H 08/13/22 20:43 Pulse Rate 90 08/13/22 20:43 Respiratory Rate 24 08/13/22 20:43 Blood Pressure 132/65 08/13/22 20:43 Pulse Oximetry 99 08/13/22 20:43 Oxygen Delivery Method 08/13/22 20:43 Course Orders Ordered: ED Orders 08/13/22 20:48 Chest [XR chest 2V] Stat 08/13/22 21:45 Complete Blood Count AUTO DIFF Stat Comprehensive Metabolic Panel Stat D Dimer Stat Lactate (Lactic Acid) Stat NT-proBNP (BNP-Adult 18+) Stat Procalcitonin Stat Troponin & CK Cardiac Panel Stat 08/13/22 22:07 EKG-12 Lead Stat 08/13/22 22:13 Blood Culture Stat 08/13/22 22:17 CT angio chest PE protocol Stat Discontinued Medications Acetaminophen (Acetaminophen 325 Mg Tablet) 975 mg PO NOW ONE Stop: 08/13/22 21:31 Last Admin: 08/13/22 21:57 Dose: 975 mg Documented By: FABBY Amoxicillin/Clavulanate Potassium (Amoxicillin/Clav 875/125 Mg) 1 tab PO NOW ONE Stop: 08/13/22 23:53 Last Admin: 08/14/22 00:04 Dose: 1 tab Documented By: JIMBO Sodium Chloride (Normal Saline 0.9%) 1,000 mls @ 1,000 mls/hr IV BOLUS ONE Stop: 08/13/22 22:29 Last Infusion: 08/13/22 23:00 Dose: 0 mls/hr Documented By: Admin: 08/13/22 21:56 Dose: 1,000 mls/hr Documented By: FABBY Vital Signs Vital signs: Vital Signs - 8 hr 08/13/22 20:43 08/13/22 21:57 08/13/22 23:29 Temperature 100.5 F H 101.6 F H 99.3 F Pulse Rate 90 Respiratory Rate 24 Blood Pressure 132/65 Pulse Oximetry 99 Oxygen Delivery Method Room Air 08/13/22 21:31 08/13/22 21:34 08/13/22 21:34 Temperature Pulse Rate 83 92 H Respiratory Rate Blood Pressure 124/71 Pulse Oximetry 97 Oxygen Delivery Method 08/13/22 22:00 08/13/22 22:00 08/13/22 22:31 Temperature Pulse Rate 78 77 Respiratory Rate 22 Blood Pressure 133/60 Pulse Oximetry 98 97 Oxygen Delivery Method 08/13/22 23:00 08/13/22 23:27 08/13/22 23:27 Temperature Pulse Rate 72 77 Respiratory Rate 23 Blood Pressure 151/65 H Pulse Oximetry 94 Oxygen Delivery Method 08/13/22 23:30 08/13/22 23:30 08/14/22 00:00 Temperature Pulse Rate 75 78 Respiratory Rate Blood Pressure 137/67 Pulse Oximetry 94 94 Oxygen Delivery Method MDM - SOB/Dyspnea Lab Data Result diagrams: 08/13/22 21:45 08/13/22 21:45 Labs: Lab Results 08/13/22 08/13/22 08/13/22 Range/Units 21:45 21:45 21:45 WBC 9.5 (4.5-11.0) X10^3/uL RBC 3.85 L (4.0-5.2) X10^6/uL Hgb 11.8 L (12.0-16.0) g/dL Hct 33.0 L (36-46) % MCV 85.5 (80-100) fL MCH 30.5 (26-34) PG MCHC 35.7 (30-36) % RDW 13.2 (11.6-14.8) % Plt Count 269 (150-400) X10^3/uL Neut % (Auto) 66.9 (50-75) % Lymph % (Auto) 15.4 L (25-40) % [place] % (Auto) 16.5 H (3-14) % Eos % (Auto) 0.4 L (2-4) % Baso % (Auto) 0.8 (0-2) % Neut # (Auto) 6300 (0464-2128) /uL Lymph # (Auto) 1500 (4356-2695) /uL [place] # (Auto) 1600 H (0-900) /uL Eos # (Auto) 0 (0-450) /uL Baso # (Auto) 100 (0-100) /uL D-Dimer 1053 H (<500) ng/ml Sodium 130 L (137-145) mmol/L Potassium 3.1 L (3.4-5.1) mmol/L Chloride 96 L (98-107) mmol/L Carbon Dioxide 23 (22-32) mmol/L BUN 8 (7-17) mg/dL Creatinine 0.61 (0.52-1.04) mg/dL Estimated GFR > 60 (>60) mL/min BUN/Creatinine Ratio 13.1 (6-22) Glucose 141 H (80-110) mg/dL Lactate (0.7-2.1) mmol/L Calcium 8.8 (8.4-10.2) mg/dL Total Bilirubin 1.5 H (0.2-1.3) mg/dL AST 22 (14-36) IU/L ALT 22 (<35) IU/L Alkaline Phosphatase 89 (38-126) U/L Total Creatine Kinase 97 (30-135) U/L CK-MB (CK-2) TNP CK-MB (CK-2) Rel Index TNP Troponin I < 0.012 (0.01-0.034) ng/mL NT-Pro-B Natriuret Pep 84 (<125) pg/mL Total Protein 7.6 (6.3-8.2) g/dL Albumin 4.2 (3.5-5.0) g/dL Globulin 3.4 (1.7-4.1) g/dL Albumin/Globulin Ratio 1.2 (1.0-2.8) Procalcitonin (<0.5) ng/mL 08/13/22 08/13/22 Range/Units 21:45 21:45 WBC (4.5-11.0) X10^3/uL RBC (4.0-5.2) X10^6/uL Hgb (12.0-16.0) g/dL Hct (36-46) % MCV (80-100) fL MCH (26-34) PG MCHC (30-36) % RDW (11.6-14.8) % Plt Count (150-400) X10^3/uL Neut % (Auto) (50-75) % Lymph % (Auto) (25-40) % [place] % (Auto) (3-14) % Eos % (Auto) (2-4) % Baso % (Auto) (0-2) % Neut # (Auto) (1480-0661) /uL Lymph # (Auto) (6338-3264) /uL [place] # (Auto) (0-900) /uL Eos # (Auto) (0-450) /uL Baso # (Auto) (0-100) /uL D-Dimer (<500) ng/ml Sodium (137-145) mmol/L Potassium (3.4-5.1) mmol/L Chloride (98-107) mmol/L Carbon Dioxide (22-32) mmol/L BUN (7-17) mg/dL Creatinine (0.52-1.04) mg/dL Estimated GFR (>60) mL/min BUN/Creatinine Ratio (6-22) Glucose (80-110) mg/dL Lactate 0.9 (0.7-2.1) mmol/L Calcium (8.4-10.2) mg/dL Total Bilirubin (0.2-1.3) mg/dL AST (14-36) IU/L ALT (<35) IU/L Alkaline Phosphatase (38-126) U/L Total Creatine Kinase (30-135) U/L CK-MB (CK-2) CK-MB (CK-2) Rel Index Troponin I (0.01-0.034) ng/mL NT-Pro-B Natriuret Pep (<125) pg/mL Total Protein (6.3-8.2) g/dL Albumin (3.5-5.0) g/dL Globulin (1.7-4.1) g/dL Albumin/Globulin Ratio (1.0-2.8) Procalcitonin 0.07 (<0.5) ng/mL Imaging Data Chest x-ray: Radiologist's Impression: [address] [address] XRay Report Signed Patient: Isadora Sykes MR#: [id number] : 1955 Acct:[id number] Age/Sex: 66 / F Date of Service: 08/13/22 Loc: ED Accession Number: [id number] ?? Procedure: XR chest 2V Ordering Provider: Marguerite George D.O. PROCEDURE:? XR CHEST 2V ? INDICATIONS:? covid+, soa ? TECHNIQUE:? 2 views of the chest were acquired.? ? COMPARISON:? [facility], , XR CHEST 2V, 08/11/2022, 15:38. ? FINDINGS:? ? Surgical changes and devices:? None.? ? Lungs and pleura:? Lungs are clear.? No pleural effusions or pneumothorax.? ? Mediastinum:? Mediastinal contours are normal.? Heart size is normal.? ? Bones and chest wall:? No suspicious bony abnormalities.? Soft tissues appear unremarkable.? ? IMPRESSION:? ? 1.? No acute cardiopulmonary disease. ? ? ? Dictated by: Aftab Best M.D. on 08/13/2022 at 21:12 ? ? Approved by: Aftab Best M.D. on 08/13/2022 at 21:21?? ECG Data Attestation: I personally reviewed and interpreted this ECG as follows: Interpretation: Sinus rhythm, rate of 78 W[place] 162 QRS 88 QTC 456. Nonspecific change. No acute ST elevation appreciated. MDM Narrative Medical decision making narrative: This is a 66-year-old female with complaint of persistent fevers COVID infection diagnosed 10 days ago with home test patient is still having fevers, cough and notes O2 is 93% at home. Initial chest x-ray is negative, labs do not reflect other clear cause. D-dimer was elevated so CT angio was obtained does not show pulmonary emboli but does show possible bronchopneumonia. Patient is in the time frame that could be developing a bacterial pneumonia, procalcitonin was negative. Blood cultures were obtained patient's concern was that she might be developing infection in her knee again she has had prior knee infections as for Orthopedic surgery. She is not having similar symptoms at that time and has a clear source of infection today. She was started on antibiotics she states ampicillin causes a rash but she has had amoxicillin in the past without issue. Patient is hyponatremic, potassium is low but this is consistent with recent COVID infection. Patient was made aware of these labs and need for follow-up. Return precautions discussed. Discharge Plan Departure Patient Disposition: Home Clinical Impression: Pneumonia, Hyponatremia Instructions: DI for Pneumonia -- Adult, COVID-19 Activity Restrictions/Additional Instructions: You appear to be developing possible bacterial pneumonia. This can sometimes occur after viral illnesses. No signs blood clots. Your labs do show low sodium and potassium, follow-up with your physician to have these rechecked but this is also often seen in COVID infections. Make sure you are hydrating regularly. You do have blood cultures pending these take 48-72 hours to result and if positive you would be contacted. You may continue home antibiotics as prescribed. Take antibiotics 1 tablet every 12 hours times 10 days. Prescription sent to [facility] Please return for fevers persisting for 4 or 5 days, increasing chest pain, shortness of breath, passing out, coughing up blood, new swelling in extremities, persistent vomiting or other new or concerning changes. Prescriptions: New amoxicillin-pot clavulanate 875-125 mg tablet 1 tab PO Q12H Qty: 20 0RF No Action meloxicam 15 mg Tablet 15 mg PO DAILY tramadol 50 mg Tablet 50 mg PO DAILY levothyroxine 88 mcg Tablet 88 mcg PO DAILY famotidine 20 mg Tablet 20 mg PO BID amitriptyline 10 mg Tablet 30 mg PO BEDTIME omeprazole 20 mg Capsule,Delayed Release(Dr/Ec) 40 mg PO DAILY PRN (Reason: GERD) coenzyme Q10 [CoQ-10] 100 mg Capsule 300 mg PO DAILY rosuvastatin 40 mg Tablet 40 mg PO BEDTIME duloxetine [Cymbalta] 20 mg Capsule,Delayed Release(Dr/Ec) 20 mg PO QAM cholecalciferol (vitamin D3) [Vitamin D3] 50 mcg (2,000 unit) Capsule 50 mcg PO DAILY acetaminophen 650 mg Tablet 650 - 1,300 mg PO DAILY PRN (Reason: Pain) aspirin 81 mg Tablet,Delayed Release (Dr/Ec) 81 mg PO BID Qty: 0 0RF oxycodone 10 mg tablet See Rx Instructions .ROUTE .COMPLEX PRN (Reason: pain) Qty: 42 0RF Rx Instructions: Take 1/2 to 1 tablet every 4 hours as needed for moderate to severe pain methocarbamol 500 mg Tablet 500 mg PO BEDTIME biotin 1 mg Capsule 1 mg PO DAILY oxycodone 5 mg Tablet 5 mg PO Q4HR PRN (Reason: Pain, Moderate) Qty: 50 0RF Referrals: Asha Alicea PA-C [Primary Care Provider] - Visit Report Forms: Patient Portal/API
--- NOTE | 2022-08-13 22:07 | PC.NURSE ---
Pt reports COVID + on 08/05/22 and states she is getting worse. Fevers all week, with highest at 102.3 earlier today. Pt RR 22 and 98% on RA.
[2022-08-13 22:08] LABS: D Dimer 1053 ng/ml (<500)
[2022-08-13 22:11] LABS: Alanine Aminotransferase 22 IU/L (<35); Albumin 4.2 g/dL (3.5-5.0); Albumin Globulin Ratio 1.2 (1.0-2.8); Alkaline Phosphatase 89 U/L (38-126); Aspartate Aminotransferase 22 IU/L (14-36); BUN Creatinine Ratio 13.1 (6-22); Bilirubin Total 1.5 mg/dL (0.2-1.3); Blood Urea Nitrogen 8 mg/dL (7-17); Calcium 8.8 mg/dL (8.4-10.2); Carbon Dioxide 23 mmol/L (22-32); Chloride 96 mmol/L (98-107); Creatine Kinase 97 U/L (30-135); Estimated Glomerular Filt Rate > 60 mL/min (>60); Globulin 3.4 g/dL (1.7-4.1); Glucose 141 mg/dL (80-110); HEMOLYSIS < 15 (0-50); Lactate (Lactic Acid) 0.9 mmol/L (0.7-2.1); Potassium 3.1 mmol/L (3.4-5.1); Sodium 130 mmol/L (137-145); Total Protein 7.6 g/dL (6.3-8.2)
--- NOTE | 2022-08-13 22:17 | DI.CT.S_ITS ---
PROCEDURE: CT ANGIO CHEST PE PROTOCOL INDICATIONS: +covid, fevers x 10 days, not improving, dimer elevated TECHNIQUE: After the administration of intravenous contrast, 2 mm thick sections acquired from the pulmonary apices to the posterior costophrenic angles. 3-dimensional maximum intensity projection (MIP) coronal and sagittal reformats were then acquired through the thorax. For radiation dose reduction, the following was used: automated exposure control, adjustment of mA and/or kV according to patient size. COMPARISON: None. FINDINGS: Image quality: Excellent. Pulmonary arteries: Pulmonary arteries demonstrate no intraluminal filling defects to suggest central pulmonary embolism. Lower Neck: No lymphadenopathy by size criteria. Thyroid: Visualized thyroid demonstrates no discrete nodules. Axillae: No lymphadenopathy by size criteria. Chest Wall: Unremarkable. Bones: Visualized osseous structures demonstrate no suspicious lesions. Lungs and Airways: No acute consolidation. There is mild bronchial wall thickening in the left lower lobe with scattered foci of mucous plugging and a few scattered peribronchial indistinct opacities. Linear atelectasis also demonstrated in the lower lobes, left greater than right. The trachea and central airways are patent. Pleura: No pneumothorax or pleural effusions. Heart: Heart size is normal. No pericardial effusion. Thoracic Vessels: The thoracic aorta is normal in size. Mediastinum and Felipa: No lymphadenopathy by size criteria. Esophagus: No wall thickening. No hiatal hernia. Abdomen: Visualized upper abdomen demonstrates a partially visualized cyst in the left hepatic lobe. IMPRESSION: 1. No evidence of pulmonary embolism. 2. Left lower lobe bronchial wall thickening with mucous plugging and scattered peribronchial opacities. The findings suggest sequelae of aspiration or bronchopneumonia. Dictated by: Aftab Best M.D. on 08/13/2022 at 23:29 Approved by: Aftab Best M.D. on 08/13/2022 at 23:38
[2022-08-13 22:22] LABS: NT-proBNP (BNP-Adult 18+) 84 pg/mL (<125); Troponin I < 0.012 ng/mL (0.01-0.034)
[2022-08-13 23:04] LABS: Procalcitonin 0.07 ng/mL (<0.5)
[2022-08-14] VITALS: PULSE 78; O2SAT 94
[2022-08-14] MEDS: AMOXICILLIN/CLAV 875/125 MG 1 TAB PO (00:04)
== END 2022-08-14 00:14 | disposition home or self-care (01) ==
PROVIDERS: Emergency Provider Emergency Medicine; PCP Physician Assistant
DX: U07.1 COVID-19 (principal); E87.1 Hypo-osmolality and hyponatremia; J18.9 Pneumonia, unspecified organism
CPT/HCPCS: 36415; 71046; 71275; 80053; 82550; 83605; 83880; 84145; 84484; 85025; 85379; 87040; 93005; 96360; 99284; 99285; Q9967

== ENCOUNTER → 2022-11-01 08:24 | Outpatient (CLI) | payer MEDICARE, OTHER, SELFPAY ==
[2021-06-23 08:37] VITALS: BMI 25.0
--- NOTE | 2022-11-01 | DI.MG.S_ITS ---
BILATERAL DIGITAL SCREENING MAMMOGRAM 3D/2D WITH CAD: 11/01/2022 CLINICAL: Routine screening. Comparison is made to exams dated: 08/04/2021 mammogram, 07/17/2020 mammogram, and 04/18/2019 mammogram - [facility]. There are scattered areas of fibroglandular density in both breasts (category b / 25%-50% glandular tissue). Current study was also evaluated with a Computer Aided Detection (CAD) system. No significant masses, calcifications, or other findings are seen in either breast. There has been no significant interval change. IMPRESSION: NEGATIVE There is no mammographic evidence of malignancy. A 1 year screening mammogram is recommended. Based on the Tyrer Cuzick model (a risk assessment model) the patient's lifetime risk is 7.3% and her 10 year risk is 3.8%. According to the ACR, ACS, and NCCN guidelines, an annual breast MRI exam along with mammogram is recommended if the patient's lifetime risk is 20% or greater. This exam was interpreted at Station ID: [id number]. NOTE: For mammograms, a report in lay terms will be sent to the patient. Approximately 15% of breast malignancies will not be visualized mammographically. In the management of a palpable breast mass, a negative mammogram must not discourage biopsy of a clinically suspicious lesion. Electronically Signed By: Mary bowser/jami:11/01/2022 13:00:53 letter sent: Normal Exam ACR BI-RADS Category 1: Negative 3341F
== END ==
PROVIDERS: PCP Physician Assistant; Referring Provider Physician Assistant; Visit Provider Physician Assistant
DX: Z12.31 Encounter for screening mammogram for malignant neoplasm of breast (principal)
CPT/HCPCS: 77063; 77067

== ENCOUNTER → 2023-03-28 15:12 | Outpatient (CLI) | payer MEDICARE, OTHER, SELFPAY ==
[2021-06-23 08:37] VITALS: BMI 25.0
--- NOTE | 2023-03-28 | DI.US.S_ITS ---
PROCEDURE: US THYROID INDICATIONS: Nontoxic multinodular goiter TECHNIQUE: Real-time scanning was performed of the thyroid gland, with image documentation. COMPARISON: None. FINDINGS: Right: Thyroid lobe measures 3.9 x 1.2 x 0.9 cm, and is heterogeneous in echotexture. Left: Thyroid lobe measures 3.1 x 1.1 x 0.8 cm, and is heterogeneous in echotexture. Isthmus: 4 mm thick. No nodules. IMPRESSION: Heterogeneous thyroid, most consistent with thyroiditis. No measurable nodules. ACR TI-RADS definitions and recommendations: TI-RADS 1 (benign): 0 points. FNA not needed. TI-RADS 2 (not suspicious): 2 points. FNA not needed. TI-RADS 3 (mildly suspicious): 3 points. * FNA if 2.5 cm or larger, follow up if 1.5 cm or larger (at 1, 3, and 5 years). TI-RADS 4 (moderately suspicious): 4-6 points. * FNA if 1.5 cm or larger, follow up if 1 cm or larger (at 1, 2, 3, and 5 years). TI-RADS 5 (highly suspicious): 7 points or more. * FNA if 1 cm or larger, follow up if 0.5 cm or larger (every year for 5 years). Dictated by: Geronimo Rondon M.D. on 03/28/2023 at 16:42 Approved by: Geronimo Rondon M.D. on 03/28/2023 at 16:44
== END ==
PROVIDERS: PCP Physician Assistant; Referring Provider Physician Assistant; Visit Provider Physician Assistant
DX: E04.2 Nontoxic multinodular goiter (principal)
CPT/HCPCS: 76536

== ENCOUNTER → 2023-04-06 14:07 | Outpatient (CLI) | payer MEDICARE, OTHER, SELFPAY ==
[2021-06-23 08:37] VITALS: BMI 25.0
--- NOTE | 2023-04-06 14:08 | DI.RAD.S_ITS ---
PROCEDURE: XR HIP W PEL IF DONE KENYA MIN 4V INDICATIONS: BILATERAL HIP PAIN TECHNIQUE: AP pelvis with lateral view(s) of the right and left hip(s). COMPARISON: [facility], , XR HIP W PEL IF DONE RT 2V, 10/27/2019, 12:45. FINDINGS: Bones: No fractures or dislocations. Pelvic ring appears intact. No suspicious bony lesions. Mild bilateral hip joint space narrowing and spurring. Soft tissues: The visualized bowel gas pattern is normal. No suspicious soft tissue calcifications. IMPRESSION: No acute fracture identified. Mild degenerative changes of both hips. If symptoms persist, follow-up radiographs and/or CT or MRI may be helpful for further evaluation. Dictated by: Domenico Fajardo M.D. on 04/06/2023 at 14:43 Approved by: Domenico Fajardo M.D. on 04/06/2023 at 14:45
--- NOTE | 2023-04-06 14:08 | DI.RAD.S_ITS ---
PROCEDURE: XR LUMBAR SPINE MIN 4V INDICATIONS: BACK PAIN TECHNIQUE: 5 views of the lumbar spine were acquired, including bilateral oblique views. COMPARISON: [facility] [place], [place], XR LUMBAR SPINE WITH OLBIQUES PLUS FLEXION EXTENSION, 12/30/2020, 10:44. FINDINGS: Bones: 5 nonrib-bearing vertebrae are present. 2 mm anterolisthesis L3 on L4. There is severe disc height loss at L4-L5, with mild-moderate degenerative changes present at other levels. No lumbar compression fracture visualized. Soft tissues: Overlying bowel gas pattern is normal. No suspicious soft tissue calcifications. Oblique images: No definite pars defects identified. Suspect mild multilevel bony foraminal stenosis. IMPRESSION: Multilevel degenerative changes of the lumbar spine, worst at L4-L5. No lumbar vertebral body compression fracture identified. If symptoms persist, follow-up radiographs and/or CT or MRI may be helpful for further evaluation. Dictated by: Domenico Fajardo M.D. on 04/06/2023 at 14:37 Approved by: Domenico Fajardo M.D. on 04/06/2023 at 14:43
== END ==
PROVIDERS: PCP Physician Assistant; Referring Provider Physical Medicine & Rehabilitation; Visit Provider Physical Medicine & Rehabilitation
DX: M47.816 Spondylosis without myelopathy or radiculopathy, lumbar region (principal); M25.552 Pain in left hip; M25.551 Pain in right hip; M54.9 Dorsalgia, unspecified
CPT/HCPCS: 72110; 73522

== ENCOUNTER → 2023-05-24 11:13 | Outpatient (CLI) | payer MEDICARE, OTHER, SELFPAY ==
[2021-06-23 08:37] VITALS: BMI 25.0
== END ==
PROVIDERS: Family Provider Physician Assistant; PCP Physician Assistant; Referring Provider Physical Medicine & Rehabilitation; Visit Provider Physical Medicine & Rehabilitation
DX: M43.16 Spondylolisthesis, lumbar region (principal); R20.2 Paresthesia of skin
CPT/HCPCS: 95886; 95910

== ENCOUNTER 2023-12-04 08:32 | Outpatient (CLI) | payer MEDICARE, OTHER, SELFPAY ==
[2023-08-20 09:35] VITALS: BMI 25.0
[2023-12-04] VITALS (10 sets, daily range): BP systolic 124–188; BP diastolic 63–82; PULSE 70–81; RESP 15–21; TEMP 36.7; O2SAT 96–100
--- NOTE | 2023-12-04 09:15 | DI.RAD.S_ITS ---
PROCEDURE: PAIN L/S TRANSFORAM INJECT KENYA COMPARISON: [facility], XR LUMBAR SPINE MIN 4V, 04/06/2023, 14:04. INDICATIONS: SPONDYLOSIS FINDINGS: 6 intraoperative fluoroscopy images demonstrate needle placement at L4-L5 bilaterally. IMPRESSION: Fluoroscopy for pain management. Dictated by: Mann Ying M.D. on 12/04/2023 at 10:42 Approved by: Mann Ying M.D. on 12/04/2023 at 10:43
[2023-12-04] MEDS: MIDAZOLAM 2 MG/2 ML VIAL IV ×2 (09:55→10:05)
[2023-12-04] MEDS: BUPIVACAINE 0.25% (PF) VIAL 2 ML INJ (10:02)
[2023-12-04] MEDS: BETAMETHASONE 30 MG/5 ML MDV 12 MG INJ (10:03)
[2023-12-04] MEDS: iopamidoL 15 ML VIAL 3 ML INJ (10:05)
[2023-12-04] MEDS: DEXAMETHASONE 10 MG/ML VIAL 20 MG INJ (10:06)
--- NOTE | 2023-12-04 10:21 | PM.PROC.IR.1 ---
Date/Time/Diagnoses Date of procedure: 12/04/23 Time of procedure: 10:21 Pre-procedure diagnosis: 1. FORAMINAL STENOSIS WITH LE SYMPTOMS Procedure Notes Procedure: 1. FLUOROSCOPICALLY GUIDED CONTRAST CONTROLLED TRANSFORAMINAL EPIDURAL STEROID INJECTION - BILATERAL L4/5 TFESI Indications: Isadora is referred by MIKEY Stratton for treatment of Foraminal Stenosis with bilateral LE Symptoms Physician: Sandro Wheeler Total Fluoroscopy time (seconds): 16 Total sedation minutes: 20 Complications: none Procedure in detail & Post-procedure care: FINDINGS Foraminal Nerve Root Compression secondary to disc disease and facet hypertrophy DESCRIPTION OF PROCEDURE Following review of allergy and review of potential side effects and complications, including, but not necessarily limited to, infection, allergic reaction, local tissue breakdown, stroke, temporary or permanent nerve injury, paralysis, and possible , the patient indicated that the patient understood and agreed to proceed. An informed consent document was signed by the patient, witnessed by a nurse, and placed in the patient's chart. Additionally, other treatment options including medications, modalities, and physical therapy were reviewed with the patient. After review of previous anaesthesic history and IV conscious sedation the patient was deemed safe to proceed with today?s procedure with IV conscious sedation as ASA class II designation. Safety time-out was performed to confirm patient ID, procedure to be performed and site of procedure. IV sedation was accomplished with a combination of 4mg of Versed was administered by the RN after DO order, titrated to patient comfort during the course of the procedure while the patient remained responsive to all verbal commands In the prone position following sterile prep and drape of the lumbar region, the right L4/5 posterior neuroforamen was identified fluoroscopically. The skin was anesthetized via a 25-gauge 1.5-inch needle with 1% lidocaine solution. At this point, a 25-gauge 3.5-inch spinal needle was atraumatically introduced and advanced under fluoroscopic guidance through the posterior right L4/5 neuroforamen to approximately the anterior aspect of the canal. Depth was confirmed on lateral view. Following negative aspiration, injection of approximately 1.5cc of Isovue 200 under live fluoroscopy in the AP view confirmed excellent flow along the nerve root, into the epidural space without vascular or intrathecal uptake observed Radiological data, including multiple fluoroscopic views of the lumbosacral spine, reveal a spinal needle at the right L4/5 posterior neuroforamen. Subsequent views show flow of contrast material flowing superiorly and inferiorly along the nerve root confirming epidural flow. Subsequently, a test dose of 1.5cc of 1% lidocaine solution was administered and patient was observed for two minutes for signs or symptoms of complications, including abdominal pain, shortness of breath, bilateral upper or lower extremity weakness, nausea and vomiting, prior to steroid injection. At this point, a total of 2cc or 10mg of dexamethasone and 6mg betamethasone was injected without incident. Attention was then refocused to the left L4/5 level where the identical procedure was replicated. The procedure tolerated the procedure well without signs or symptoms of complications prior to transfer to the recovery area continued monitoring without incident. The patient was then transferred to the recovery area where they were observed for an appropriate time after the injection. The patient reported a VAS score of 7 prior to the procedure and a post-procedure VAS of 0. POST OP INSTRUCTIONS The patient was provided a Pain Log to continue to record their response to the target-specific procedure prior to follow-up visit with their referring physician. Additionally, specific post-injection care instructions and a contact number to our office were provided if concerns arise regarding possible complications associated with the procedure are suspected.
== END 2023-12-04 10:42 | disposition home or self-care (01) ==
LOC: RAD 08:33
PROVIDERS: Family Provider Physician Assistant; PCP Physician Assistant; Referring Provider Physical Medicine & Rehabilitation; Visit Provider Physical Medicine & Rehabilitation
DX: M48.061 Spinal stenosis, lumbar region without neurogenic claudication (principal); M51.16 Intervertebral disc disorders with radiculopathy, lumbar region; M47.26 Other spondylosis with radiculopathy, lumbar region
CPT/HCPCS: 64483; 99152; J0702; J1100; J2250; J3490

== ENCOUNTER → 2023-12-15 10:27 | Outpatient (CLI) | payer MEDICARE, OTHER, SELFPAY ==
[2023-08-20 09:35] VITALS: BMI 25.0
--- NOTE | 2023-12-15 | DI.MG.S_ITS ---
BILATERAL DIGITAL SCREENING MAMMOGRAM 3D/2D WITH CAD: 12/15/2023 CLINICAL: Routine screening. Comparison is made to exams dated: 11/01/2022 mammogram, 08/04/2021 mammogram, and 07/17/2020 mammogram - [facility]. There are scattered areas of fibroglandular density in both breasts (category b / 25%-50% glandular tissue). Current study was also evaluated with a Computer Aided Detection (CAD) system. No significant masses, calcifications, or other findings are seen in either breast. There has been no significant interval change. IMPRESSION: NEGATIVE There is no mammographic evidence of malignancy. A 1 year screening mammogram is recommended. Based on the Tyrer Cuzick model (a risk assessment model) the patient's lifetime risk is 6.9% and her 10 year risk is 3.8%. According to the ACR, ACS, and NCCN guidelines, an annual breast MRI exam along with mammogram is recommended if the patient's lifetime risk is 20% or greater. This exam was interpreted at Station ID: [id number]. NOTE: For mammograms, a report in lay terms will be sent to the patient. Approximately 15% of breast malignancies will not be visualized mammographically. In the management of a palpable breast mass, a negative mammogram must not discourage biopsy of a clinically suspicious lesion. Electronically Signed By: Mary bowser/jami:12/17/2023 12:13:19 letter sent: Normal Exam ACR BI-RADS Category 1: Negative [id number]
== END ==
LOC: MAMMO 10:28
PROVIDERS: Family Provider Physician Assistant; PCP Physician Assistant; Referring Provider Physician Assistant; Visit Provider Physician Assistant
DX: Z12.31 Encounter for screening mammogram for malignant neoplasm of breast (principal); R92.323 Mammographic fibroglandular density, bilateral breasts
CPT/HCPCS: 77063; 77067

== ENCOUNTER 2024-06-05 14:38 | Outpatient (CLI) | payer MEDICARE, OTHER, SELFPAY ==
[2023-08-20 09:35] VITALS: BMI 25.0
[2024-06-05] VITALS (9 sets, daily range): BP systolic 138–166; BP diastolic 67–87; PULSE 70–76; RESP 14–23; TEMP 36.6; O2SAT 96–99
[2024-06-05] MEDS: MIDAZOLAM 2 MG/2 ML VIAL IV (14:45)
--- NOTE | 2024-06-05 15:15 | DI.RAD.S_ITS ---
PROCEDURE: PAIN L/S TRANSFORAMINAL INJECT INDICATIONS: SPONDYLOSIS COMPARISON: None. FINDINGS: Fluoroscopic spot filming was performed to verify placement of spinal needles at the L4-5 level(s), as labeled on the films. Appropriate location(s) of the needle tip(s) was confirmed by injection of iodinated contrast. IMPRESSION: Contrast and needle placement at L4-5. Dictated by: Ginger Soto M.D. on 06/05/2024 at 20:34 Approved by: Ginger Soto M.D. on 06/05/2024 at 20:35
[2024-06-05] MEDS: iopamidoL 15 ML VIAL 3 ML INJ (15:24)
[2024-06-05] MEDS: BUPIVACAINE 0.25% (PF) VIAL 2 ML INJ (15:25)
[2024-06-05] MEDS: DEXAMETHASONE 10 MG/ML VIAL INJ (15:25)
[2024-06-05] MEDS: BETAMETHASONE 30 MG/5 ML MDV 6 MG INJ (15:25)
--- NOTE | 2024-06-05 15:33 | P.PCN_ITS ---
Date/Time/Diagnoses Date of procedure: 06/05/24 Time of procedure: 15:33 Pre-procedure diagnosis: 1. FORAMINAL STENOSIS WITH LE SYMPTOMS Post-procedure diagnosis: same Procedure Notes Procedure: 1. FLUOROSCOPICALLY GUIDED CONTRAST CONTROLLED TRANSFORAMINAL EPIDURAL STEROID INJECTION - LEFT L4/5 Indications: Isadora is referred by MIKEY Stratton for treatment of Foraminal Stenosis with Left LE Symptoms Physician: Sandro Wheeler Total Fluoroscopy time (seconds): 11 Total sedation minutes: 10 Complications: none Procedure in detail & Post-procedure care: FINDINGS Foraminal Nerve Root Compression secondary to disc disease and facet hypertrophy DESCRIPTION OF PROCEDURE Following review of allergy and review of potential side effects and complications, including, but not necessarily limited to, infection, allergic reaction, local tissue breakdown, stroke, temporary or permanent nerve injury, paralysis, and possible , the patient indicated that the patient understood and agreed to proceed. An informed consent document was signed by the patient, witnessed by a nurse, and placed in the patient's chart. Additionally, other treatment options including medications, modalities, and physical therapy were reviewed with the patient. After review of previous anaesthesic history and IV conscious sedation the patient was deemed safe to proceed with today?s procedure with IV conscious sedation as ASA class II designation. Safety time-out was performed to confirm patient ID, procedure to be performed and site of procedure. IV sedation was accomplished with a combination of 2mg of Versed administered by the RN after DO order, titrated to patient comfort during the course of the procedure while the patient remained responsive to all verbal commands In the prone position following sterile prep and drape of the lumbar region, the left L4/5 posterior neuroforamen was identified fluoroscopically. The skin was anesthetized via a 25-gauge 1.5-inch needle with 1% lidocaine solution. At this point, a 25-gauge 3.5-inch spinal needle was atraumatically introduced and advanced under fluoroscopic guidance through the posterior left L4/5 neuroforamen to approximately the anterior aspect of the canal. Depth was confirmed on lateral view. Following negative aspiration, injection of approximately 1.5 cc of Isovue 200 under live fluoroscopy in the AP view confirmed excellent flow along the nerve root, into the epidural space without vascular or intrathecal uptake observed Radiological data, including multiple fluoroscopic views of the lumbosacral spine, reveal a spinal needle at the left L4/5 posterior neuroforamen. Subsequent views show flow of contrast material flowing superiorly and inferiorly along the nerve root confirming epidural flow. Subsequently, a test dose of 1.5 cc of 1% lidocaine solution was administered and patient was observed for two minutes for signs or symptoms of complications, including abdominal pain, shortness of breath, bilateral upper or lower extremity weakness, nausea and vomiting, prior to steroid injection. At this point, a total of 2cc or 10mg of dexamethasone and 6mg of betamethasone was injected without incident. The procedure tolerated the procedure well without signs or symptoms of complications prior to transfer to the recovery area continued monitoring without incident. The patient was then transferred to the recovery area where they were observed for an appropriate time after the injection. The patient reported a VAS score of 7 prior to the procedure and a post- procedure VAS of 1. POST OP INSTRUCTIONS The patient was provided a Pain Log to continue to record their response to the target-specific procedure prior to follow-up visit with their referring physicia n. Additionally, specific post-injection care instructions and a contact number to our office were provided if concerns arise regarding possible complications associated with the procedure are suspected.
== END 2024-06-05 15:51 | disposition home or self-care (01) ==
LOC: RAD 14:38
PROVIDERS: Family Provider Physician Assistant; PCP Physician Assistant; Referring Provider Physical Medicine & Rehabilitation; Visit Provider Physical Medicine & Rehabilitation
DX: M48.061 Spinal stenosis, lumbar region without neurogenic claudication (principal); M51.16 Intervertebral disc disorders with radiculopathy, lumbar region; M47.26 Other spondylosis with radiculopathy, lumbar region
CPT/HCPCS: 64483; 99152; J0702; J1100; J2250; J3490

== ENCOUNTER → 2024-10-01 11:17 | Outpatient (CLI) | payer MEDICARE, OTHER, SELFPAY ==
[2023-08-20 09:35] VITALS: BMI 25.0
--- NOTE | 2024-10-01 11:20 | DI.MRI.S_ITS ---
PROCEDURE: MR CERVICAL SPINE WO CON INDICATIONS: Cervical radiculopathy TECHNIQUE: Noncontrast sagittal T1 spin echo and T2 fast spin echo, sagittal STIR, foraminal oblique sagittal T2 fast spin echo, and axial gradient echo or T2 fast spin echo through the cervical spine. COMPARISON: None. FINDINGS: Image quality: Excellent. Alignment and Curvature: Mild anterolisthesis of C3 on C4, C4 on C5 and C5 on C6. Grade 1 anterolisthesis of C6 on C7. Bone Marrow: Marrow demonstrates normal overall signal. Spinal Cord: Visualized spinal cord has normal size and signal. No cerebellar tonsillar herniation. Paraspinous Soft Tissues: No paravertebral masses. Prevertebral soft tissues are normal in thickness. C2-C3: No central canal or neural foraminal stenosis. C3-C4: Disc desiccation. No central canal stenosis. Facet and uncovertebral arthropathy. Severe left and moderate right neural foraminal stenosis. C4-C5: Disc desiccation and minimal posterior disc osteophyte complex. No central canal stenosis. Facet and uncovertebral arthropathy. Moderate bilateral neural foraminal stenosis. C5-C6: Disc desiccation and mild posterior disc osteophyte complex. Mild central canal stenosis. Facet and uncovertebral arthropathy. Moderate bilateral neural foraminal stenosis. C6-C7: Disc desiccation and moderate height loss. Mild posterior disc osteophyte complex. Mild central canal stenosis. Facet and uncovertebral arthropathy. Moderate left and mild right neural foraminal stenosis. C7-T1: No central canal or neural foraminal stenosis. IMPRESSION: 1. Multilevel degenerative changes of the cervical spine as described above. 2. Mild central canal stenosis at C5-C6 and C6-C7. 3. Severe left neural foraminal stenosis at C3-C4. Multilevel moderate neural foraminal stenosis at other levels. Dictated by: Beck Contreras M.D. on 10/01/2024 at 16:19 Approved by: Beck Contreras M.D. on 10/01/2024 at 16:24
== END ==
LOC: MRI 11:18
PROVIDERS: Family Provider Physician Assistant; PCP Physician Assistant; Referring Provider Physical Medicine & Rehabilitation; Visit Provider Physical Medicine & Rehabilitation
DX: M47.22 Other spondylosis with radiculopathy, cervical region (principal); M48.02 Spinal stenosis, cervical region
CPT/HCPCS: 72141

== ENCOUNTER 2024-10-23 09:32 | Outpatient (CLI) | payer MEDICARE, OTHER, SELFPAY ==
[2023-08-20 09:35] VITALS: BMI 25.0
[2024-10-23] VITALS (8 sets, daily range): BP systolic 109–156; BP diastolic 57–74; PULSE 66–81; RESP 14–19; TEMP 36.9; O2SAT 94–100
--- NOTE | 2024-10-23 09:33 | DI.RAD.S_ITS ---
PROCEDURE: PAIN L/S TRANSFORAM INJECT KENYA COMPARISON: [facility], , PAIN L/S TRANSFORAM INJECT KENYA, 12/04/2023, 11:01. INDICATIONS: Bilateral L4-5 transforaminal DHARMESH FINDINGS: Intra procedural examination demonstrating appropriate positions of the needles at the bilateral L4-5 positions. IMPRESSION: Intra procedural examination demonstrating appropriate positions of the needles. Dictated by: Beck Contreras M.D. on 10/24/2024 at 8:17 Approved by: Beck Contreras M.D. on 10/24/2024 at 8:18
[2024-10-23] MEDS: MIDAZOLAM 2 MG/2 ML VIAL IV (10:50)
[2024-10-23] MEDS: BETAMETHASONE 30 MG/5 ML MDV 12 MG INJ (10:57)
[2024-10-23] MEDS: BUPIVACAINE 0.25% (PF) VIAL 2 ML INJ (10:57)
[2024-10-23] MEDS: iopamidoL 15 ML VIAL 3 ML INJ (10:58)
[2024-10-23] MEDS: DEXAMETHASONE 10 MG/ML VIAL 20 MG INJ (10:58)
--- NOTE | 2024-10-23 11:50 | PM.PROC.IR.1 ---
Date/Time/Diagnoses Date of procedure: 10/23/24 Time of procedure: 11:50 Pre-procedure diagnosis: 1. FORAMINAL STENOSIS WITH LE SYMPTOMS Procedure Notes Procedure: 1. FLUOROSCOPICALLY GUIDED CONTRAST CONTROLLED TRANSFORAMINAL EPIDURAL STEROID INJECTION - BILATERAL L4/5 TFESI Indications: Isadora is referred by MIKEY Stratton for treatment of Foraminal Stenosis with bilateral LE Symptoms Physician: Sandro Wheeler Total Fluoroscopy time (seconds): 9 Total sedation minutes: 16 Complications: none Procedure in detail & Post-procedure care: FINDINGS Foraminal Nerve Root Compression secondary to disc disease and facet hypertrophy DESCRIPTION OF PROCEDURE Following review of allergy and review of potential side effects and complications, including, but not necessarily limited to, infection, allergic reaction, local tissue breakdown, stroke, temporary or permanent nerve injury, paralysis, and possible , the patient indicated that the patient understood and agreed to proceed. An informed consent document was signed by the patient, witnessed by a nurse, and placed in the patient's chart. Additionally, other treatment options including medications, modalities, and physical therapy were reviewed with the patient. After review of previous anaesthesic history and IV conscious sedation the patient was deemed safe to proceed with today?s procedure with IV conscious sedation as ASA class II designation. Safety time-out was performed to confirm patient ID, procedure to be performed and site of procedure. IV sedation was accomplished with a combination of 2mg of Versed was administered by the RN after DO order, titrated to patient comfort during the course of the procedure while the patient remained responsive to all verbal commands In the prone position following sterile prep and drape of the lumbar region, the right L4/5 posterior neuroforamen was identified fluoroscopically. The skin was anesthetized via a 25-gauge 1.5-inch needle with 1% lidocaine solution. At this point, a 25-gauge 3.5-inch spinal needle was atraumatically introduced and advanced under fluoroscopic guidance through the posterior right L4/5 neuroforamen to approximately the anterior aspect of the canal. Depth was confirmed on lateral view. Following negative aspiration, injection of approximately 1.5cc of Isovue 200 under live fluoroscopy in the AP view confirmed excellent flow along the nerve root, into the epidural space without vascular or intrathecal uptake observed Radiological data, including multiple fluoroscopic views of the lumbosacral spine, reveal a spinal needle at the right L4/5 posterior neuroforamen. Subsequent views show flow of contrast material flowing superiorly and inferiorly along the nerve root confirming epidural flow. Subsequently, a test dose of 1.5cc of 1% lidocaine solution was administered and patient was observed for two minutes for signs or symptoms of complications, including abdominal pain, shortness of breath, bilateral upper or lower extremity weakness, nausea and vomiting, prior to steroid injection. At this point, a total of 2cc or 10mg of dexamethasone and 6mg betamethasone was injected without incident. Attention was then refocused to the left L4/5 level where the identical procedure was replicated. The procedure tolerated the procedure well without signs or symptoms of complications prior to transfer to the recovery area continued monitoring without incident. The patient was then transferred to the recovery area where they were observed for an appropriate time after the injection. The patient reported a VAS score of 7 prior to the procedure and a post-procedure VAS of 0. POST OP INSTRUCTIONS The patient was provided a Pain Log to continue to record their response to the target-specific procedure prior to follow-up visit with their referring physician. Additionally, specific post-injection care instructions and a contact number to our office were provided if concerns arise regarding possible complications associated with the procedure are suspected.
== END 2024-10-23 11:20 | disposition home or self-care (01) ==
LOC: RAD 09:33
PROVIDERS: Family Provider Physician Assistant; PCP Physician Assistant; Referring Provider Physical Medicine & Rehabilitation; Visit Provider Physical Medicine & Rehabilitation
DX: M48.061 Spinal stenosis, lumbar region without neurogenic claudication (principal); M51.16 Intervertebral disc disorders with radiculopathy, lumbar region; M47.26 Other spondylosis with radiculopathy, lumbar region
CPT/HCPCS: 64483; 99152; J0702; J1100; J2250; J3490

== ENCOUNTER → 2024-12-22 10:24 | Outpatient (CLI) | payer MEDICARE, OTHER, SELFPAY ==
[2023-08-20 09:35] VITALS: BMI 25.0
--- NOTE | 2024-12-22 10:25 | DI.RAD.S_ITS ---
PROCEDURE: XR KNEE RT 3V INDICATIONS: right TKA TECHNIQUE: 4 views of the knee were acquired. COMPARISON: [facility], , XR KNEE RT 1TO2V, 06/23/2021, 14:38. FINDINGS: Bones: Stable appearance of hardware within the distal femur and proximal tibia status post total knee arthroplasty without evidence of complication. Subacute to chronic appearing fracture of the lateral margin of the patella as seen on the sunrise view. No other fractures are identified. No suspicious bony lesions. Soft tissues: No joint effusion. No suspicious soft tissue calcifications. IMPRESSION: Subacute to chronic appearing fracture of the lateral margin of the patella with otherwise no evidence of hardware complication status post total knee arthroplasty. Dictated by: Vito Hernandez M.D. on 12/23/2024 at 2:58 Approved by: Vito Hernandez M.D. on 12/23/2024 at 3:00
--- NOTE | 2024-12-22 10:25 | DI.RAD.S_ITS ---
PROCEDURE: XR KNEE LT 3V INDICATIONS: left knee djd TECHNIQUE: 3 views of the knee were acquired. COMPARISON: [facility], CR, XR KNEE RT 1TO2V, 06/23/2021, 14:38. FINDINGS: Bones: No fractures or dislocations. No suspicious bony lesions. Moderate to severe medial and moderate lateral tibiofemoral and moderate to severe patellofemoral compartment narrowing with associated osteophytosis. Soft tissues: No joint effusion. No suspicious soft tissue calcifications. IMPRESSION: KL grade 3 tricompartmental osteoarthritis without evidence of acute osseous abnormality. Dictated by: Vito Hernandez M.D. on 12/23/2024 at 2:57 Approved by: Vito Hernandez M.D. on 12/23/2024 at 2:58
== END ==
PROVIDERS: Family Provider Physician Assistant; PCP Physician Assistant; Referring Provider Physical Medicine & Rehabilitation; Visit Provider Physical Medicine & Rehabilitation
DX: M17.12 Unilateral primary osteoarthritis, left knee (principal); Z96.651 Presence of right artificial knee joint; R93.6 Abnormal findings on diagnostic imaging of limbs; M70.62 Trochanteric bursitis, left hip; F40.240 Claustrophobia; M54.12 Radiculopathy, cervical region; M54.17 Radiculopathy, lumbosacral region; M43.16 Spondylolisthesis, lumbar region; R20.2 Paresthesia of skin
CPT/HCPCS: 73562; 99214

== ENCOUNTER → 2025-01-05 11:09 | Outpatient (CLI) | payer MEDICARE, OTHER, SELFPAY ==
[2023-08-20 09:35] VITALS: BMI 25.0
--- NOTE | 2025-01-05 11:10 | DI.RAD.S_ITS ---
PROCEDURE: XR LUMBAR SPINE MIN 4V INDICATIONS: BACK PAIN TECHNIQUE: 5 views of the lumbar spine were acquired, including bilateral oblique views. COMPARISON: [facility], CR, XR LUMBAR SPINE MIN 4V, 04/06/2023, 14:04. FINDINGS: Bones: 5 nonrib-bearing vertebrae are present. There is mild leftward curvature of lumbar spine with apex at L3-4 level. No vertebral body compression fractures. Degenerative endplate changes and bilateral facet arthrosis throughout lumbar spine is seen more notably at L4-5 and L5-S1 levels. There is 6 mm anterolisthesis of L3 on L4. No suspicious bony lesions. Soft tissues: Overlying bowel gas pattern is normal. No suspicious soft tissue calcifications. Oblique images: No pars defects. Bilateral bony foraminal stenosis at L3-4 through L5-S1 levels are seen. IMPRESSION: Degenerative disc disease throughout lumbar spine. No acute vertebral body compression fracture. No gross pars defects. Suggestion of bilateral bony foraminal stenosis at L3-4 through L5-S1 levels. Dictated by: Miguel Bliss M.D. on 01/05/2025 at 11:32 Approved by: Miguel Bliss M.D. on 01/05/2025 at 11:33
== END ==
PROVIDERS: Family Provider Physician Assistant; PCP Physician Assistant; Referring Provider Physical Medicine & Rehabilitation; Visit Provider Physical Medicine & Rehabilitation
DX: M51.16 Intervertebral disc disorders with radiculopathy, lumbar region (principal); M51.17 Intervertebral disc disorders with radiculopathy, lumbosacral region; M47.26 Other spondylosis with radiculopathy, lumbar region; M47.27 Other spondylosis with radiculopathy, lumbosacral region; M54.9 Dorsalgia, unspecified
CPT/HCPCS: 72110

== ENCOUNTER → 2025-03-16 08:01 | Outpatient (CLI) | payer MEDICARE, OTHER, SELFPAY ==
[2023-08-20 09:35] VITALS: BMI 25.0
--- NOTE | 2025-03-16 08:03 | DI.MG.S_ITS ---
MM screening mammo BI: 03/16/2025. BI-RADS: 1 CLINICAL: 69-year old female for bilateral screening mammogram. Tyrer-Cuzick lifetime risk of 5.2%. No personal or first-degree family history of breast cancer. PRIOR EXAMS 12/15/2023, 11/01/2022, 08/04/2021, 07/17/2020, 05/05/2019, 04/18/2019. MAMMOGRAPHY TECHNIQUE: 2D and 3D (tomosynthesis) digital mammographic views obtained, with additional images as needed for full coverage. Current study was also evaluated with a Computer Aided Detection (CAD) system. DENSITY B. There are scattered areas of fibroglandular density. MAMMOGRAPHY FINDINGS Bilateral: No suspicious mass, asymmetry, microcalcification, or other abnormality seen. IMPRESSION: * No evidence of malignancy. RECOMMENDATIONS Bilateral * Annual screening mammography. OVERALL ASSESSMENT CATEGORY BI-RADS-1: Negative. The [employer] recommends annual screening mammography beginning at age 40 for women with average risk of breast cancer. ELECTRONICALLY SIGNED: Kali Zuleta M.D. on 03/16/2025 at 09:43:42 AM PT Interpreting Station ID: [id number]
== END ==
PROVIDERS: Family Provider Physician Assistant; PCP Physician Assistant; Referring Provider Physician Assistant; Visit Provider Physician Assistant
DX: Z12.31 Encounter for screening mammogram for malignant neoplasm of breast (principal)
CPT/HCPCS: 77063; 77067

== ENCOUNTER → 2025-04-02 13:48 | Outpatient (CLI) | payer MEDICARE, OTHER, SELFPAY ==
[2023-08-20 09:35] VITALS: BMI 25.0
--- NOTE | 2025-04-02 13:57 | DI.RAD.S_ITS ---
PROCEDURE: XR HAND RT 2V INDICATIONS: Pain in right hand TECHNIQUE: 3 views of the hand(s) acquired. COMPARISON: None. FINDINGS: Bones: No fractures or dislocations. Carpal bones are normally aligned. No suspicious bony lesions. 1st CMC joint space narrowing with associated osteophytosis and sclerosis. Interphalangeal joint space narrowing with osteophytosis. Subchondral cystic changes also present across many of these joints. There is fusion of the 4th DIP joint. Soft tissues: No suspicious soft tissue calcifications. 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 Dictated by: Geronimo Rondon M.D. on 04/03/2025 at 11:12 Approved by: Geronimo Rondon M.D. on 04/03/2025 at 11:14
== END ==
PROVIDERS: Family Provider Physician Assistant; PCP Physician Assistant; Referring Provider Internal Medicine; Visit Provider Internal Medicine
DX: M18.11 Unilateral primary osteoarthritis of first carpometacarpal joint, right hand (principal); M19.041 Primary osteoarthritis, right hand; M79.641 Pain in right hand
CPT/HCPCS: 73130

== ENCOUNTER → 2025-07-21 15:23 | Outpatient (CLI) | payer MEDICARE, OTHER, SELFPAY ==
[2023-08-20 09:35] VITALS: BMI 25.0
--- NOTE | 2025-07-21 15:29 | DI.RAD.S_ITS ---
PROCEDURE: XR FOOT LT MIN 3V INDICATIONS: LT FOOT/ANKLE PAIN TECHNIQUE: 3 views of the foot were acquired. COMPARISON: None. FINDINGS: Bones: No fractures or dislocations. No suspicious bony lesions. Mild degenerative disease in multiple IP joints. Soft tissues: No tibiotalar joint effusion. Achilles tendon appears normal. IMPRESSION: Mild degenerative changes, no focal osseous lesion seen Dictated by: Kip Vega M.D. on 07/21/2025 at 20:52 Approved by: Kip Vega M.D. on 07/21/2025 at 20:53
--- NOTE | 2025-07-21 15:29 | DI.RAD.S_ITS ---
PROCEDURE: XR ANKLE LT MIN 3V INDICATIONS: LT ANKLE/FOOT PAIN TECHNIQUE: 3 views of the ankle were acquired. COMPARISON: None. FINDINGS: Bones: There is anatomic alignment. There are corticated osseous fragments adjacent to the medial and lateral malleoli, suggestive of old avulsion fracture. No other focal osseous lesion seen. Soft tissues: No tibiotalar joint effusion. Achilles tendon appears normal. IMPRESSION: Old posttraumatic changes, no acute focal osseous lesion seen. Dictated by: Kip Vega M.D. on 07/21/2025 at 20:55 Approved by: Kip Vega M.D. on 07/21/2025 at 20:57
== END ==
LOC: RAD 15:25
PROVIDERS: Family Provider Physician Assistant; PCP Physician Assistant; Referring Provider Family Medicine; Visit Provider Family Medicine
DX: R22.42 Localized swelling, mass and lump, left lower limb (principal)
CPT/HCPCS: 73610; 73630